=== PATIENT | female | born 1950 | race African-American/Black ===

== ENCOUNTER 2017-11-22 13:24 | Observation (INO) | payer MEDICARE, MEDICAID ==
[~2017-11-22 13:24] MED LIST: ISOVUE-370 76%-LOCM 1 ML ONE
--- NOTE | 2017-11-22 13:47 | RAD ---
PORTABLE CHEST ONE VIEW: Date: 11-22-17 Time: 1:43 p.m. History: Chest pain. FINDINGS: Comparison is made with exam of 08-16-16. The heart size is normal. The aorta is tortuous. The lungs are expanded without focal areas of consol idation, pneumothorax or pleural effusions. IMPRESSION: No radiographic evidence of acute cardiopulmonary process. POS: H
[2017-11-22 13:49] LABS: #Lymphocytes 1.1 thou/uL (1.20-3.40); #Monocytes 0.4 thou/uL (0.11-0.59); #Neutrophils 2.3 thou/uL (1.40-6.50); %Basophils 0.7 % (0.0-1.0); %Eosinophils 1.1 % (0.0-10.0); %Lymphocytes 28.8 % (21.0-51.0); %Monocytes 10.3 % (0.0-10.0); %Neutrophils 59.1 % (42.0-75.0); Hemoglobin 11.3 g/dL (12.0-16.0); Mean Corpuscular HGB CONC 32.8 g/dL (32.0-36.0); Mean Corpuscular Hemoglobin 26.2 pg (27.0-31.0); Mean Platelet Volume 8.7 fL (7.4-10.4); Platelet Count 181 thou/uL (130-400); RBC Distribution Width 12.6 % (11.5-14.5); Red Blood Cell (RBC) Count 4.32 mill/uL (4.20-5.40); White Blood Cell (WBC) Count 3.8 thou/uL (4.8-10.8)
[2017-11-22 14:13] LABS: CKMB 0.6 ng/mL (0-6.6); Troponin I Less than 0.010 ng/mL (< 0.028)
[2017-11-22 14:16] LABS: ALT (SGPT) 11 U/L (8-55); AST (SGOT) 16 U/L (5-34); Albumin 4.3 g/dL (3.4-4.8); Alkaline Phosphatase 69 U/L (40-150); Anion Gap 14 mmol/L (10-20); BUN (Urea Nitrogen) 16 mg/dL (9.8-20.1); Bilirubin, Total 0.2 mg/dL (0.2-1.2); CK (CPK) 47 U/L (29-168); Calc. Creatinine Clearance 0 mL/min (70-130); Calcium 9.7 mg/dL (7.8-10.44); Carbon Dioxide 26 mmol/L (23-31); Chloride 103 mmol/L (98-107); Estimated GFR-MDRD 73; Globulin 4.3 g/dL (2.4-3.5); Glucose 100 mg/dL (80-115); Potassium 3.7 mmol/L (3.5-5.1); Protein, Total 8.6 g/dL (6.0-8.3); Sodium 139 mmol/L (136-145)
[2017-11-22] MEDS ORDERED: Nitroglycerin 2% Ointment 1 INCH/1 GM Packet ONE (16:59)
--- NOTE | 2017-11-22 17:15 | CT ---
CTA OF THE THORAX UTILIZING IV CONTRAST PE PROTOCOL AND 3D REFORMATTED IMAGING 11/22/17 COMPARISON: Prior exam dated 07/25/13 and 05/24/16. FINDINGS: Pulmonary nodules in the right upper lobe are stable. There is a subpleural pulmonary nodule within the right lower lobe which is stable. There is some mild wall thickening involving portions of the mi d to distal esophagus with small hiatal hernia. No central or segmental pulmonary embolus is evident. Aberrant right subclavian artery is again noted. The visualized upper abdomen demonstrates cholecyst ectomy clips. There is scattered degenerative and osteoarthritic change. There are mildly prominent S chmorl's nodes involving T11 and T8 which are stable. There is diffuse osteopenia. IMPRESSION: 1. No central or segmental pulmonary embolus. 2. Stable benign pulmonary nodules within the right upper lobe and right lower lobe. There is al so small benign appearing pulmonary nodules right middle lobe. 3. Wall thickening involving the mid to distal esophagus may reflect changes of esophagitis. Rec ommend correlation. 4. Small hiatal hernia. 5. Cholecystectomy. 6. Other chronic findings as above. POS: [facility]
[2017-11-22 18:18] LABS: Troponin I 0.022 ng/mL (< 0.028)
[2017-11-22 18:35] VITALS: BMI 25.9
[2017-11-22] MEDS ORDERED: Ondansetron ODT 4 MG TAB SL PRN (18:43)
[2017-11-22] MEDS ORDERED: Ondansetron HCl/PF 4 MG/2 ML Vial IVP PRN (18:43)
[2017-11-22] MEDS ORDERED: Acetaminophen 325 MG TAB PO PRN (18:43)
[2017-11-22] MEDS ORDERED: Dextrose 50% Abboject 50 ML SYRINGE SLOW IVP PRN (20:14)
[2017-11-22] MEDS ORDERED: HumaLOG 300 UNITS/3 ML VIAL SC PRN (20:14)
[2017-11-22] MEDS ORDERED: Dextrose 5% in Water 1,000 ML IV PRN (20:14)
[2017-11-22] MEDS ORDERED: Nitroglycerin 0.4 MG TAB (25 Tab Bottle) PO PRN (20:30)
[2017-11-22 20:35] LABS: Phosphorus 2.7 mg/dL (2.3-4.7)
[2017-11-22 20:36] LABS: Hemoglobin A1c 5.5 % (4.0-6.0)
[2017-11-22 20:42] LABS: Troponin I Less than 0.010 ng/mL (< 0.028)
[2017-11-22] MEDS ORDERED: Brimonidine Tartrate 0.2% Ophth Soln 5 ml Bottle EA EYE SCH (21:00)
[2017-11-22] MEDS ORDERED: Doxycycline 100 MG CAP PO SCH (21:00)
[2017-11-22] MEDS ORDERED: PROVENTIL INHALER 6.7 G (200 INHALATIONS) INH PRN ×2 (21:00→22:00)
[2017-11-22] MEDS: Famotidine 20 MG TAB PO SCH (21:15)
[2017-11-22] MEDS: Nitroglycerin 2% Ointment 1 INCH/1 GM Packet TOP SCH (21:15)
[2017-11-22] MEDS ORDERED: HYDROcodone/Acetaminophen 5/325 mg Tablet PO PRN (21:50)
--- NOTE | 2017-11-23 03:32 | HP-2 ---
CODE STATUS: FULL. PRIMARY CARE PHYSICIAN: Dr. Bhavesh Meredith. ATTENDING: Dr. Lizette Newman. RESIDENT: Dr. Hector Chris. CHIEF COMPLAINT: Chest pain. HISTORY OF PRESENT ILLNESS: A 67-year-old female who presents with chest pain that began around 10:0 0 a.m. after being on a treadmill. She states she did have some shortness of breath that was worse w ith deep breathing. She denies diaphoresis, nausea, vomiting, diarrhea at that time. She denies any recent illness. She describes the pain as sharp in the right side of her chest with no radiation. She states the pain is constant. She also states that this has happened before to her. The patient states that she used to be able to walk faster and farther on a treadmill, but now has had increased exercise intolerance. She also notes that the pain is worse with large deep breaths. Patient states that she was scheduled for a heart catheterization on 12/12/[address] Carbajal. She has no othe r complaints at this time. In the ER, she was given Nitro-Bid and aspirin. PAST MEDICAL HISTORY: Chronic atrial fibrillation, microcytic anemia, hypothyroidism, hypertension, GERD, COPD, left eye blindness secondary to glaucoma, hepatitis C, rheumatoid arthritis, diabetes roseanna litus type 2. PAST SURGICAL HISTORY: Cholecystectomy, enucleation of left eye, cataract of the right eye. ALLERGIES: PENICILLIN, LEVAQUIN, AZITHROMYCIN, SULFA, HYDRALAZINE, THIAZIDES. MEDICATIONS: 1. Symbicort 160/4.5 mcg inhalers. 2. Metoprolol succinate 50 mg. 3. Norvasc 10 mg. 4. Aldactone 25 mg. 5. Synthroid 25 mcg. 6. Nexium 40 mg. 7. Albuterol sulfate nebulizers. 8. Flonase 50 mcg. 9. Alphagan 0.1% ophthalmic solution. 10. Nasonex 50 mcg. 11. ProAir HFA 108 mcg. 12. Xopenex HFA 45 mcg. 13. Hydrocodone/acetaminophen 5/325 mg. 14. Metformin 500 mg b.i.d. 15. Xarelto 20 mg. 16. Calcium plus D 1000-800 mg units. 17. Naprosyn 500 mg b.i.d. FAMILY HISTORY: Diabetes mellitus type 2 and hypertension. SOCIAL HISTORY: Patient states she had a significant smoking history, alcohol history, and polysubst ance abuse history, but she had quit over 20 years ago. REVIEW OF SYSTEMS: General: Denies any fevers, chills, weight changes. Eyes: Denies any vision ch anges or eye pain. ENT: Denies nasal congestion, rhinorrhea, or sore throat. Respiratory: Denies cough, congestion, shortness of breath. Cardiovascular: She does admit to chest pain. Denies any p alpitations or edema. Gastrointestinal: She denies any nausea, vomiting, diarrhea. Genitourinary: She does admit to polyuria. Skin: She denies any rashes or lesions. Musculoskeletal: Denies pain , tenderness, stiffness, swelling, arthritis at any joints. Neurologic: Denies any weakness. She d oes say she has had some numbness. Psychiatric: She denies anxiety or depression. PHYSICAL EXAMINATION: VITAL SIGNS: BP was 129/84, pulse is 83, respiratory rate are 18, temperature max 98.9, pulse ox 98% on room air, current weight is 75 kilos. GENERAL: She is alert and oriented x4. Appropriately interactive. EYES: PERRLA with left fake eye. ENT: Nasal mucosa and oropharynx within normal limits. NECK: Supple, no lymphadenopathy, no thyromegaly. CARDIAC: Irregular rate and rhythm. No murmurs. Radial and pedal pulses equal bilaterally. RESPIRATORY: Normal effort, no retractions, clear lungs to auscultation bilaterally. SKIN: Warm and dry. No cyanosis or lesions. ABDOMEN: Soft, not tender to palpation. Bowel sounds present x4. No masses or distention. EXTREMITIES: No clubbing, cyanosis, or edema. MUSCULOSKELETAL: Structure, tone, muscle strength, and range of motion within normal limits. NEUROLOGIC: No focal neurologic deficits. Sensation within normal limits. Cranial nerves II-XII gr ossly intact. GCS was 15. PSYCH: Appropriate. LABORATORY DATA: We have a white blood cell count 3.8, platelet count 181, MCV was 80%, neutrophils 59, hemoglobin 11.3, hematocrit 34.5. Sodium 139, potassium 3.7, chloride 103, bicarbonate 26, BUN 1 6, creatinine 0.93, glucose was 100. CK was 47, CK-MB 0.6, troponin I was less than 0.01. Calcium 9 .7, total protein 8.6, albumin 4.3, bilirubin 0.2, AST 16, ALT 11, alkaline phosphatase 69. EKG show ed atrial fibrillation unchanged from previous. CT of the chest was negative. Chest x-ray showed no acute abnormality. ASSESSMENT AND PLAN: A 67-year-old female with: 1. Typical chest pain. We will make her n.p.o. at midnight. We will get a Cardiology consult in th e morning with Dr. Carbajal, who was her primary blood or blood bank technician. We will trend her troponins. We will give her nitro as needed. EKG changes. Her heart score was 5. We also have fasting lipid panel, m ag, phos, and a BMP pending. 2. Atrial fibrillation. Continue her home medications. 3. Hypertension. Continue her home meds. 4. Chronic obstructive pulmonary disease. Continue her home meds. 5. Diabetes mellitus. Given Accu-Cheks and sliding scale insulin and discuss continue her metformin . 6. Hypothyroidism. We will check a TSH, since it has not been recently checked. Also, continue her Synthroid dose. 7. Microcytic anemia. We will recommend an outpatient followup. We are going to trend the CBC. 8. Rheumatoid arthritis. Continue home medications. Disposition length of hospital stay will be tele and 1. Symptomatic medications will be provided. History and physical exam as well as management has been discussed with Dr. Newman.
[2017-11-23 05:26] LABS: INR-International Normal Ratio 1.3; Prothrombin Time 16.3 SEC (12.0-14.7)
[2017-11-23 05:35] LABS: Anion Gap 12 mmol/L (10-20); BUN (Urea Nitrogen) 22 mg/dL (9.8-20.1); Calc. Creatinine Clearance 88 mL/min (70-130); Calcium 9.3 mg/dL (7.8-10.44); Carbon Dioxide 27 mmol/L (23-31); Cardiac Risk 2.3 (Less than 4.5); Chloride 108 mmol/L (98-107); Cholesterol 114 mg/dl (< 200 Desired); Estimated GFR-MDRD Greater than 90; Glucose 92 mg/dL (80-115); HDL Cholesterol 49 mg/dL (>60 Neg Risk); LDL Cholesterol, Calculated 49 mg/dL; Potassium 3.5 mmol/L (3.5-5.1); Sodium 143 mmol/L (136-145); Triglycerides 78 mg/dL (Less than 150)
[2017-11-23] MEDS ORDERED: Levothyroxine Sodium 25 MCG TAB PO SCH (06:00)
[2017-11-23] MEDS: Nitroglycerin 2% Ointment 1 INCH/1 GM Packet TOP SCH (06:23)
[2017-11-23] MEDS ORDERED: Mometasone/Formoterol 120 PUFF INHALER INH SCH (06:30)
[2017-11-23 06:47] LABS: Eosinophils 2 % (0-10); Hemoglobin 9.8 g/dL (12.0-16.0); Lymphocytes 44 % (21-51); MDiff Complete? YES; Mean Corpuscular HGB CONC 30.8 g/dL (32.0-36.0); Mean Corpuscular Hemoglobin 24.9 pg (27.0-31.0); Mean Corpuscular Volume 80.9 fl (81.0-99.0); Monocytes 6 % (0-10); Neutrophil 48 % (42-75); PLT Morphology Comment Appears Adequate; Platelet Count 167 thou/uL (130-400); RBC Distribution Width 12.6 % (11.5-14.5); RBC Morphology Normal; Red Blood Cell (RBC) Count 3.94 mill/uL (4.20-5.40); White Blood Cell (WBC) Count 2.9 thou/uL (4.8-10.8)
[2017-11-23] MEDS ORDERED: Spironolactone 25 MG TAB PO SCH (08:00)
[2017-11-23] MEDS ORDERED: Potassium Chloride 10 MEQ TAB PO SCH (08:00)
[2017-11-23] MEDS ORDERED: predniSONE 20 MG TAB PO SCH (08:00)
--- NOTE | 2017-11-23 08:33 | PDOC.FM ---
- Subjective Subjective: Patient reports that her chest pain has resolved since getting to the hospital. She is no longer having SOB. She denies N/V/D/abd pain. - Objective MAR Reviewed: Yes Vital Signs & Weight: Vital Signs (12 hours) Temp Pulse Resp BP BP Pulse Ox 11/23/17 07:38 98.6 F 73 16 131/76 97 11/23/17 06:32 70 12 11/23/17 04:20 98.9 F 73 20 108/69 95 11/22/17 23:56 98.3 F 77 14 109/69 99 Weight Weight 75.296 kg I&O: 11/22/17 11/23/17 11/24/17 06:59 06:59 06:59 Intake Total 120 Output Total 150 Balance -30 Result Diagrams: 11/23/17 04:31 11/23/17 04:31 <Aditi Sauer - Last Filed: 11/23/17 08:31> - Objective Vital Signs & Weight: Vital Signs (12 hours) Temp Pulse Resp BP BP Pulse Ox 11/23/17 08:00 98.6 F 73 16 11/23/17 07:38 98.6 F 73 16 131/76 97 11/23/17 06:32 70 12 11/23/17 04:20 98.9 F 73 20 108/69 95 11/22/17 23:56 98.3 F 77 14 109/69 99 Weight Weight 75.296 kg I&O: 11/22/17 11/23/17 11/24/17 06:59 06:59 06:59 Intake Total 120 Output Total 150 Balance -30 Result Diagrams: 11/23/17 04:31 11/23/17 04:31 <Julio Garcia - Last Filed: 11/23/17 11:06> Phys Exam - Physical Examination Constitutional: NAD HEENT: moist MMs Respiratory: no wheezing, no rales, no rhonchi, clear to auscultation bilateral Cardiovascular: RRR, no significant murmur, no rub Gastrointestinal: soft, non-tender, no distention, positive bowel sounds Musculoskeletal: no edema, pulses present Neurological: non-focal, moves all 4 limbs Psychiatric: normal affect, A&O x 3 <Aditi Sauer - Last Filed: 11/23/17 08:31> Dx/Plan (1) Exercise-induced angina Code(s): I20.8 - OTHER FORMS OF ANGINA PECTORIS Status: Acute (2) Microcytic anemia Code(s): D50.9 - IRON DEFICIENCY ANEMIA, UNSPECIFIED Status: Acute (3) Chronic a-fib Code(s): I48.2 - CHRONIC ATRIAL FIBRILLATION Status: Chronic (4) GERD (gastroesophageal reflux disease) Code(s): K21.9 - GASTRO-ESOPHAGEAL REFLUX DISEASE WITHOUT ESOPHAGITIS Status: Chronic QualifierTitle: Esophagitis presence: with esophagitis Qualified Code(s) : K21.0 - Gastro-esophageal reflux disease with esophagitis (5) HTN (hypertension) Code(s): I10 - ESSENTIAL (PRIMARY) HYPERTENSION Status: Chronic QualifierTitle: Hypertension type: essential hypertension Qualified Code( s): I10 - Essential (primary) hypertension (6) Hypothyroidism Code(s): E03.9 - HYPOTHYROIDISM, UNSPECIFIED Status: Chronic QualifierTitle: Hypothyroidism type: unspecified Qualified Code(s): E03.9 - Hypothyroidism, unspecified (7) Diabetes type 2, controlled Code(s): E11.9 - TYPE 2 DIABETES MELLITUS WITHOUT COMPLICATIONS Status: Acute QualifierTitle: Diabetes mellitus complication status: without complication Diabetes mellitus mcc insulin use: without supervisor shearing use Qualified Code(s): E11.9 - Type 2 diabetes mellitus without complications - Plan Plan: 1. Angina on Exertion Patient was walking on treadmill and started having chest pain with associated SOB. She had recent stress test about a month ago that was normal per the patient, and she was set up to have a cath by Dr. Carbajal on 12/12/17 due to her decreased exercise tolerance. ASCVD 10 yr risk 9.8% Trops negative x3, no EKG changes -Will consult Dr. Carbajal, appreciate his recommendations -Patient is asymptomatic at this time, but will give nitro prn chest pain -Will hold Xarelto pending plan for today and make patient NPO 2. Chronic a-fib -Monitor on tele -Hold Xarelto for today -Hold Metoprolol for today, will restart tomorrow, currently rate controlled 3. Hypothyroidism TSH wnl -cont home synthroid 4. GERD Pt had evidence of esophagitis on CT -protonix 5. HTN -continue home meds, except holding metoprolol for today 6. DM2 -Metformin -Accuchecks ACHS <Aditi Sauer - Last Filed: 11/23/17 08:31> Attending Addendum - Attending Addendum I personally evaluated the patient and discussed the management with Dr. Sauer. I agree with the History, Examination, Assessment and Plan documented above with any addition or exceptions noted below. Patient admitted yesterday with typical type chest pain that began on exertion. She has been followed by [facility] and he has been consulted. Possible stress or cath today depending on his recs. She is currently without pain or complaint. Further dispo per cardiology recs. <Julio Garcia - Last Filed: 11/23/17 11:06>
[2017-11-23] MEDS ORDERED: Rivaroxaban 10 MG TAB PO SCH (09:00)
[2017-11-23] MEDS ORDERED: Brimonidine Tartrate 0.2% Ophth Soln 5 ml Bottle R EYE SCH (09:00)
[2017-11-23] MEDS ORDERED: Hydroxychloroquine Sulfate 200 MG TAB PO SCH (09:00)
[2017-11-23] MEDS ORDERED: Fluticasone Propionate Nasal Spray 16 gm Bottle NASAL SCH (09:00)
[2017-11-23] MEDS ORDERED: Amlodipine 10 MG TAB PO SCH ×2 (09:00)
[2017-11-23] MEDS ORDERED: metFORMIN 500 MG TAB PO SCH (09:00)
[2017-11-23] MEDS: Famotidine 20 MG TAB PO SCH (09:25)
[2017-11-23 11:53] VITALS: BP 141/85; TEMP 98.8
--- NOTE | 2017-11-23 13:19 | CON ---
DATE OF CONSULTATION: 11/23/2017 HISTORY OF PRESENT ILLNESS: Patient is a pleasant 67-year-old woman with a history of chest discomfort who presents with recurrent chest pain. The patient has a history of chest discomfort. She recently underwent a PET scan which revealed no evidence of ischemia. The patient continued to report having substernal chest discomfort. The patient was scheduled to undergo a cardiac catheterization yesterday. She developed right-sided chest discomfort. This was a persistent pain that was made worse whenever she took a deep breath. The patient denies having any present chest discomfort. PAST MEDICAL HISTORY: 1. Hypertension. 2. Rheumatoid arthritis. 3. GE reflux. 4. Hypothyroidism. 5. Paroxysmal atrial fibrillation. PAST SURGICAL HISTORY: Cholecystectomy, knee surgery, eye surgery,and C- section. ALLERGIES: See nursing list. MEDICATIONS ON ADMISSION: Xarelto 20 daily, Metformin 1 tablet b.i.d., Plaquenil 200 b.i.d., Norvasc 10 daily,and Nexium 40 daily. PHYSICAL EXAMINATION: GENERAL: This is a thin woman in no acute distress. VITAL SIGNS: Blood pressure 131/76. NECK: No jugular venous distention, no carotid bruits. LUNGS: Clear to auscultation. HEART: Irregular rate and rhythm, normal S1 and S2. ABDOMEN: Nondistended LABORATORY DATA AND IMAGING DATA: Her laboratory results revealed her to have sodium 143, potassium 3.5, chloride 108, bicarbonate 27, BUN 22, creatinine 0.76 , glucose is 124, troponin less than 0.01. Her EKG revealed normal sinus rhythm with premature atrial contractions, no ST-T wave changes. IMPRESSION: 1. Atypical right-sided chest pain. 2. Hypertension. 3. History of paroxysmal atrial fibrillation. 4. History of chronic obstructive pulmonary disease. This patient presents with atypical chest pain. Her cardiac enzymes reveal no evidence of myocardial infarction. Her electrocardiogram is unremarkable. The patient is on Xarelto, so she will not be able to undergo cardiac catheterization. She needs to be off this medication for at least 2 days. From a cardiac standpoint, she can wait until over the weekend. I will be happy to perform the catheterization on Sunday. If she declines, then we will undergo outpatient catheterization. If she chooses to leave the hospital, then I would be happy to perform the scheduled outpatient procedure. DEUCE
[2017-11-23] MEDS ORDERED: Diabetic Tussin 200 MG/10 ML UDCUP PO PRN (13:53)
[2017-11-23] MEDS ORDERED: Warfarin Sodium 2 MG TAB PO SCH (17:00)
--- NOTE | 2017-11-23 23:30 | DIS-2 ---
ADMISSION DATE: 11/22/2017 DISCHARGE DATE: 11/23/2017 ADMITTING RESIDENT: Hector Chris M.D. DISCHARGE RESIDENT: Dr. Aditi Sauer. ADMITTING ATTENDING: Lizette Newman M.D. DISCHARGE ATTENDING: Dr. Julio Garcia. CONSULTATIONS: Dr. Carbajal of Cardiology. PROCEDURES: None. IMAGIN. Chest x-ray showed no radiographic evidence of acute cardiopulmonary process. 2. Chest thorax CTA showed no central or segmental pulmonary embolus, stable benign pulmonary nodule s within the right upper lobe and right lower lobe and small benign appearing pulmonary nodules in ri ght middle lobe, wall thickening involving the mid to distal esophagus may reflect changes of esophag itis, small hiatal hernia, cholecystectomy. PRIMARY DIAGNOSES: 1. Anginal chest pain. 2. Esophagitis. SECONDARY DIAGNOSES: 1. Chronic atrial fibrillation. 2. Microcytic anemia. 3. Gastroesophageal reflux disease. 4. Hypertension. 5. Hyperthyroidism. 6. Type 2 diabetes. DISCHARGE MEDICATIONS: 1. Albuterol sulfate 90 mcg inhaled p.r.n. shortness of breath or wheezing. 2. Amlodipine 10 mg p.o. daily. 3. Brimonidine tartrate one drop in the right eye b.i.d. 4. Budesonide/formoterol 1 puff inhaled b.i.d. 5. Esomeprazole 40 mg p.o. daily. 6. Flonase 1 spray in each naris daily. 7. [place] 5/325 mg 1 tab p.o. q.6 hours p.r.n. pain. 8. Plaquenil 200 mg p.o. b.i.d. 9. Xopenex 1 puff inhaled q.4 hours p.r.n. shortness of breath or wheezing. 10. Synthroid 25 mcg p.o. daily. 11. Metformin 500 mg p.o. b.i.d. 12. Metoprolol 25 mg p.o. b.i.d. 13. Potassium chloride 10 mEq p.o. daily. 14. Xarelto 20 mg p.o. daily. 15. Spironolactone 25 mg p.o. daily. DISCONTINUED MEDICATIONS: None. HISTORY OF PRESENT ILLNESS/HOSPITAL COURSE: This is a 67-year-old female with a past medical history of GERD and type 2 diabetes, who presented to the ED after an episode of chest pain that started aft er walking on the treadmill associated with shortness of breath. Pain was right-sided, did not radia te, was worse when she took deep breath. The pain was relieved with rest. The patient had a recent stress test that was negative and is scheduled to have a cardiac catheterization due to exercise into [facility] with Dr. Carbajal on 12/12/2017. The patient received aspirin and is also on nitro. By the time, the patient was admitted, she was no longer having any chest pain, shortness of breath, and the patient had an EKG done that showed no signs of ischemia as well as troponins that were trended that were negative x3. The patient's 10-year ASCVD risk was calculated, it was 9.8%. The patient is on Xarelto and had a PT of 16.3 with INR of 1.3. Dr. Carbajal of Cardiology was consulted and he deemed this was atypical chest pain. He felt that the patient could either wait in the hospital until Mond ay to have a catheterization done for the Xarelto get out of her system or to wait until her schedule d time to have the catheterization done later in November and that either would be appropriate based on her symptoms and laboratory work. The patient felt comfortable going home and was instructed to kian nelson taking her medications and follow up with Dr. Carbajal as planned. DISPOSITION: Stable. DISCHARGE INSTRUCTIONS: 1. Location: Home. 2. Diet: Heart healthy and consistent carb. 3. Activity: As tolerated. 4. Follow up with Dr. Meredith within [address] Carbajal within 2-3 weeks.
== END 2017-11-23 14:54 | disposition home or self-care (01) ==
LOC: ERS 13:24 → 2SW 17:07
PROVIDERS: ADMIT Student in an Organized Health Care Education/Training Program; ATTEND Student in an Organized Health Care Education/Training Program
DX: I20.9 Angina pectoris, unspecified (principal); K20.9 Esophagitis, unspecified; I48.2 Chronic atrial fibrillation; K21.9 Gastro-esophageal reflux disease without esophagitis; I10 Essential (primary) hypertension; E03.9 Hypothyroidism, unspecified; E11.9 Type 2 diabetes mellitus without complications; M06.9 Rheumatoid arthritis, unspecified; J44.9 Chronic obstructive pulmonary disease, unspecified; Z88.0 Allergy status to penicillin; Z88.1 Allergy status to other antibiotic agents; Z88.8 Allergy status to other drugs, medicaments and biological substances; Z90.49 Acquired absence of other specified parts of digestive tract; Z90.710 Acquired absence of both cervix and uterus; Z98.890 Other specified postprocedural states
CPT/HCPCS: 71045; 71275; 80048; 80061; 82550; 82553; 82962 ×2; 83036; 83735; 84100; 84484 ×2; 85025; 85610; 93005; 94640; 94664; 94760; 99285; G0378; 36415; 36416; 80053; 84443

== ENCOUNTER 2018-01-15 16:48 | Emergency (ER) | payer MEDICARE, MEDICAID ==
[~2018-01-15 16:48] MED LIST changes: +Gadobenate Dimeglumine 529 MG/1 ML (20ML VIAL) ONE; -ISOVUE-370 76%-LOCM 1 ML ONE
[2018-01-15] MEDS ORDERED: HYDROcodone/Acetaminophen 7.5/325 mg Tablet ONE (17:55)
--- NOTE | 2018-01-15 18:09 | RAD ---
THREE VIEWS OF THE LEFT WRIST: 01/15/18 COMPARISON: 02/13/15 HISTORY: Left wrist pain and swelling after waking up this morning. FINDINGS: Three views of the left wrist shows no evidence of acute fracture or dislocation. There is mild joint space narrowing of the radiocarpal joint. No focal soft tissue swelling is seen. IMPRESSION: Mild left wrist osteoarthritis without acute osseous abnormality. POS: [facility]
[2018-01-15 18:31] LABS: Hemoglobin 11.3 g/dL (12.0-16.0); Mean Corpuscular HGB CONC 31.9 g/dL (32.0-36.0); Mean Corpuscular Hemoglobin 25.4 pg (27.0-31.0); Mean Corpuscular Volume 79.8 fl (81.0-99.0); Mean Platelet Volume 9.6 fL (7.4-10.4); Platelet Count 203 thou/uL (130-400); RBC Distribution Width 13.2 % (11.5-14.5); Red Blood Cell (RBC) Count 4.44 mill/uL (4.20-5.40)
[2018-01-15 18:41] LABS: Band 1 % (5-11); Elliptocytes SLIGHT = 2-5 cells (100X) (0-1/hpf); Eosinophils 2 % (0-10); Hypochromia SLIGHT = 6-15 cells (100X) (0-5/hpf); Lymphocytes 28 % (21-51); MDiff Complete? YES; Microcytosis SLIGHT = 6-15 cells (100X) (0-5/hpf); Monocytes 10 % (0-10); Neutrophil 58 % (42-75); Ovalocytes SLIGHT = 2-5 cells (100X) (0-1/hpf); PLT Morphology Comment Appears Adequate; Polychromasia SLIGHT = 2-3 cells (100X) (0-2/hpf); Reactive Lymphocytes 1 % (0-10); Schistocytes SLIGHT = 2-5 cells (100X) (0-1/hpf); White Blood Cell (WBC) Count 3.1 thou/uL (4.8-10.8)
[2018-01-15 18:45] LABS: ALT (SGPT) 13 U/L (8-55); AST (SGOT) 22 U/L (5-34); Albumin 4.4 g/dL (3.4-4.8); Alkaline Phosphatase 70 U/L (40-150); Anion Gap 14 mmol/L (10-20); BUN (Urea Nitrogen) 12 mg/dL (9.8-20.1); Bilirubin, Total 0.2 mg/dL (0.2-1.2); Calc. Creatinine Clearance 0 mL/min (70-130); Calcium 9.7 mg/dL (7.8-10.44); Carbon Dioxide 24 mmol/L (23-31); Chloride 105 mmol/L (98-107); Estimated GFR-MDRD 87; Globulin 4.4 g/dL (2.4-3.5); Glucose 122 mg/dL (80-115); Potassium 3.8 mmol/L (3.5-5.1); Protein, Total 8.8 g/dL (6.0-8.3); Sodium 139 mmol/L (136-145)
[2018-01-15] MEDS ORDERED: cefTRIAXone\\ROCEPHIN 250 MG VIAL ONE (20:37)
[2018-01-15] MEDS ORDERED: Lidocaine 1% PF 5 ML VIAL ONE (20:39)
--- NOTE | 2018-01-15 20:47 | MRI ---
MRI OF THE LEFT WRIST WITHOUT AND WITH CONTRAST; 01/15/18 HISTORY: Left wrist pain. Evaluate for septic joint. COMPARISON: X-ray 01/15/18. TECHNIQUE: Multiplanar and multisequence MRI images were obtained of the left wrist without and with IV contrast . FINDINGS: There is edema along the dorsal aspect of the wrist. This is slightly more pronounced over the ECRL a nd ECRB tendons. No fraying of the tendons is seen where the edema is present and no significant thic kening of the tendons is present. No wrist effusion is seen. There is a small cyst present in the lunate. The TFCC is grossly intact. T here is enhancement of the soft tissues in the dorsal wrist where the edema is present consistent wit h cellulitis. No focal fluid collection is seen. No significant enhancement of the wrist capsule is s een. IMPRESSION: Cellulitis and possible tenosynovitis of the extensor tendons along the dorsal aspect of the wrist. This exam was reviewed with Dr. Nazario who agrees with the findings and impression. POS: [facility]
[2018-01-15] MEDS ORDERED: Ketorolac Tromethamine 30 MG/ML VIAL ONE (21:21)
== END 2018-01-15 22:01 | disposition home or self-care (01) ==
LOC: ERS 16:48
DX: L03.114 Cellulitis of left upper limb (principal); I48.91 Unspecified atrial fibrillation; I49.9 Cardiac arrhythmia, unspecified; I10 Essential (primary) hypertension; M19.90 Unspecified osteoarthritis, unspecified site; J44.9 Chronic obstructive pulmonary disease, unspecified; B19.20 Unspecified viral hepatitis C without hepatic coma; M10.9 Gout, unspecified; M06.9 Rheumatoid arthritis, unspecified
CPT/HCPCS: 36415; 80053; 85025; 85652; 86140; 96374; 96375; A9579; J0696; J1885; J2001

== ENCOUNTER 2018-01-17 22:16 | Inpatient (IN) | payer MEDICARE, MEDICAID ==
[2018-01-17] MEDS ORDERED: Acetaminophen 325 MG TAB PO PRN (22:40)
[2018-01-17] MEDS ORDERED: Bisacodyl 10 MG SUPP PR PRN (23:18)
[2018-01-17] MEDS ORDERED: Acetaminophen 650 MG Suppository PR PRN (23:18)
[2018-01-17] MEDS ORDERED: Mag-Al 1200 mg/1200 mg/30 ML UDCUP PO PRN (23:18)
[2018-01-17] MEDS ORDERED: Ondansetron HCl/PF 4 MG/2 ML Vial IVP PRN (23:18)
[2018-01-17] MEDS ORDERED: Morphine 5 MG/ML SYRINGE SLOW IVP PRN ×2 (23:21)
[2018-01-17] MEDS ORDERED: Ketorolac Tromethamine 30 MG/ML VIAL IVP SCH (23:30)
--- NOTE | 2018-01-17 23:35 | PDOC.FPRHP ---
- History of Present Illness Chief Complaint: wrist pain History of Present Illness: Tonya Cadena is a 68 year old F with PMH of HTN, DM, osteoarthritis, chronic low back pain, who was sent over to hospital for direct admission from the [facility] clinic. The patient has had left wrist pain for the last 3 days. Pain is worse with any movement or weight bearing. There has been no trauma to wrist and no lesions. Patient denies any fevers, chills, n/v, numbness or tingling. Patient was seen in ER for the same symptoms on 01/15 and had an MRI done that showed possible tenosynovitis of ECRB and ECRL with overlying cellulitis. Patient was sent home from the ER with PO clindamycin. It was recommended that patient follow up with orthopedics but did not make it to appointment. She did make an appointment at [facility] where it was decided that she should be directly admitted to the hospital. - Allergies/Adverse Reactions Allergies Allergy/AdvReac Type Severity Reaction Status Date / Time azithromycin [From Zithromax] Allergy Verified 11/22/17 19:42 erythromycin base Allergy Verified 11/22/17 19:42 hydralazine Allergy Verified 11/22/17 19:42 hydrochlorothiazide Allergy Verified 11/22/17 19:42 levofloxacin [From Levaquin] Allergy Verified 11/22/17 19:42 Penicillins Allergy Verified 11/22/17 19:42 Quinolones Allergy Verified 11/22/17 19:42 Sulfa (Sulfonamide Allergy Verified 11/22/17 19:42 Antibiotics) Thiazides Allergy Verified 11/22/17 19:42 ibuprofen AdvReac Mild Verified 11/22/17 19:42 - Home Medications Medication Instructions Recorded Confirmed Type Budesonide-Formoterol [Symbicort 1 puff INH BID 03/27/16 01/17/18 History 160-4.5] Esomeprazole Magnesium [Nexium 40 mg PO DAILY 03/27/16 01/17/18 History 24Hr] Levalbuterol Tartrate [Xopenex HFA 1 puff INH Q4HR PRN 03/27/16 01/17/18 History Inhaler] Levothyroxine Sodium [Synthroid] 25 mcg PO DAILY 03/27/16 01/17/18 History Metoprolol Succinate [Toprol XL] 25 mg PO BID 03/27/16 01/17/18 History Spironolactone [Aldactone] 25 mg PO DAILY 03/27/16 01/17/18 History Albuterol Sulfate [Proair 90 mcg IH PRN PRN 11/22/17 01/17/18 History Respiclick] Amlodipine [Norvasc] 10 mg PO DAILY 11/22/17 01/17/18 History Brimonidine Tartrate [Alphagan P 1 drop R EYE BID 11/22/17 01/17/18 History 0.1% Ophth Soln] Fluticasone Propionate [Flonase 1 spray EA NARE DAILY 11/22/17 01/17/18 History Nasal [place]] Rivaroxaban [Xarelto] 20 mg PO DAILY 11/22/17 01/17/18 History metFORMIN [Glucophage] 1 tab PO BID 11/22/17 01/17/18 History Rivaroxaban [Xarelto] 20 mg PO DAILY 01/17/18 01/17/18 History - History PMHx: Hypothyroidism, Microcytic anemia, chronic venous insufficiency, atrial fibrillation, hep C, T2DM, HTN, COPD, glaucoma, peripheral neuropathy, chronic low back pain PSHx: knee surgery, eye surgery X2, DAWIT-BSO, cholecystectomy, internal hemorrhoid resection FHx: DM, HTN Social: Single, lives alone, denies drug use - Review of Systems General: denies: fever/chills, weight/appetite/sleep changes, night sweats Eyes: denies: eye pain, vision changes ENT: denies: nasal congestion, rhinorrhea Respiratory: denies: cough, congestion, shortness of breath, exercise intolerance Cardiovascular: denies: chest pain, palpitation, edema, paroxysmal nocturnal dyspnea, orthopnea Gastrointestinal: denies: nausea, vomiting, diarrhea, constipation, abdominal pain, GI bleeding Genitourinary: denies: incontinence, dysuria, polyuria, discharge Skin: denies: rashes, lesions, jaundice Musculoskeletal: reports: pain, tenderness, stiffness, swelling, arthritis/ arthralgias Neurological: denies: numbness, syncope, seizure, weakness Psychological: denies: anxiety, depression - Vital signs BP: 120/78 HR: 75 RR: 16 Pox: 98% on RA Wt: 75 kg - Physical Exam Constitutional: NAD, awake, alert and oriented, well developed HEENT: normocephalic and atraumatic, PERRLA, EOMI, conjunctiva clear, grossly normal vision, grossly normal hearing, MMM, oropharynx clear Neck: supple, trachea midline, no JVD Heart: RRR, normal S1/S2, no murmurs/rubs/gallops Lungs: CTAB, no respiratory distress, good air movement, no rales/rhonchi Abdomen: soft, non-tender -Musculoskeletal: erythema and swelling over posterior aspect of left wrist with TTP. Decrease ROM 2/2 to pain. Increased pain with extension and flexion of wrist and fingers. Neurological: no focal deficit, CN II-XII intact, normal sensation Skin: no rash/lesions, good turgor Heme/Lymphatic: no unusual bruising or bleeding, no purpura Psychiatric: normal mood and affect, good judgment and insight, intact recent and remote memory FMR H&P: Results - Labs Result Diagrams: 01/17/18 23:51 01/17/18 23:51 FMR H&P: A/P - Problem List (1) Infectious tenosynovitis of left wrist extensor Current Visit: Yes Status: Acute Code(s): M65.132 - OTHER INFECTIVE (TENO) SYNOVITIS, LEFT WRIST (2) Diabetes type 2, controlled Current Visit: No Status: Chronic Code(s): E11.9 - TYPE 2 DIABETES MELLITUS WITHOUT COMPLICATIONS Qualifiers: Diabetes mellitus mcc insulin use: without mcc use Diabetes mellitus complication status: without complication Qualified Code(s): E11.9 - Type 2 diabetes mellitus without complications (3) Microcytic anemia Current Visit: No Status: Chronic Code(s): D50.9 - IRON DEFICIENCY ANEMIA, UNSPECIFIED (4) Chronic a-fib Current Visit: No Status: Chronic Code(s): I48.2 - CHRONIC ATRIAL FIBRILLATION (5) Glaucoma Current Visit: No Status: Chronic Code(s): H40.9 - UNSPECIFIED GLAUCOMA Qualifiers: Glaucoma type: unspecified type Laterality: left (6) HTN (hypertension) Current Visit: No Status: Chronic Code(s): I10 - ESSENTIAL (PRIMARY) HYPERTENSION Qualifiers: Hypertension type: essential hypertension Qualified Code(s): I10 - Essential (primary) hypertension (7) Hypothyroidism Current Visit: No Status: Chronic Code(s): E03.9 - HYPOTHYROIDISM, UNSPECIFIED Qualifiers: Hypothyroidism type: unspecified Qualified Code(s): E03.9 - Hypothyroidism , unspecified (8) COPD (chronic obstructive pulmonary disease) Current Visit: No Status: Chronic - Plan (1) Infectious Tenosynovitis of Left wrist: admit to medical. Patient is at increased risk for synovitis due to diabetes but etiology is unclear at this time. Will start IV vancomycin and rocephin. Ice pack for wrist. Will consult Dr. Goode in the morning. Continue pain management. NPO @ midnight. Check blood cultures, CBC, CMP, CRP. (2) HTN: Home meds (3) A fib: Continue home meds, hold xarelto. Check PT, PTT, INR. (4) T2DM: Continue metformin. (5) COPD: Continue home meds (6) hypothyroidism: continue home meds (7) glaucoma: home meds (8) chronic low back pain: home meds CODE STATUS: FULL CODE FMR H&P: Upper Level - Pertinent history 68yo AAF with pmhx DM2, HTN, peripheral neuropathy who presented from clinic at [facility] after being seen for left wrist pain and sent for direct admission. Pt has 3 day h/o left wrist pain, worse with any movement or weight bearing. Denies any numbness/tingling, fevers, chills, nausea or vomiting or lymphadenopathy. Seen in ED with same concern on 01/15 and MRI LUE showed possible tenosynovitis of ECRB & ECRL with overlying cellulitis. Pt sent home on po clindamycin and recommended f/u with ortho as outpt. Pt did not make it to ortho appt but instead was admitted to hospital from clinic for worsened wrist pain and concern for true synovitis. Pt denies any recent wound or punctures to skin on LUE. - Pertinent findings Pending Labs (drawn on admission) prior imaging reviewed as above Pertinent physical exam findings- VSS, afebrile gen- NAD, well appearing, nontoxic cv- rrr no mrg lungs- ctab abd- soft non-tender RUE- erythema and edema to dorsal/radial aspect of left wrist with ttp. worsened pain with extension of fingers and thumb and any passive ROM. unable to perform active ROM due to pain. - Plan Date/Time: 01/17/18 2314 68yo AAF with pmhx as above p/w- 1) Left wrist extensor tenosynovitis, presumed infectious etiology- no clear nidus for infection based on history; however concern for infectious etiology and failure of outpt abx. start pt on vancomycin and check appropriate troughs. check BCx, CBC, CRP & BMP & ESR upon arrival. Consult hand surgeon, Dr. Goode , in am for recommendations. npo @ mn and hold anticoags at this time. ice to affected area q 30 min. 2) HTN- home rx 3) DM2- home rx 4) chronic iron deficiency anemia- check hgb to assure stable 5) pAfib- in NSR currently.hold xarelto pending surgery recs. I, [Aditi Harrell DO ([email or web address])], have evaluated this patient and agree with findings/plan as outlined by post graduate intern resident. Pertinent changes/additions are listed here. Attending Addendum - Attending Addendum Date/Time: 01/18/18 7618 I personally evaluated the patient and discussed the management with Dr. Tilley on 01/17/18 at 2342. I agree with the History, Examination, Assessment and Plan documented above with any addition or exceptions noted below. Left wrist tenosynovitis unresponsive to OP tx, admitted for IV abx's and further eval.
[2018-01-17] MEDS: Lactated Ringer's 1,000 ML IV SCH (23:50)
[2018-01-17] MEDS: HYDROcodone/Acetaminophen 10/325 mg Tablet PO PRN (23:51)
[2018-01-17] MEDS ORDERED: Sodium Chloride 0.9% 10 ML ONE (23:56)
[2018-01-18 00:01] LABS: #Basophils 0.1 thou/uL (0.0-0.2); #Lymphocytes 0.9 thou/uL (1.20-3.40); #Monocytes 0.4 thou/uL (0.11-0.59); #Neutrophils 1.7 thou/uL (1.40-6.50); %Basophils 2.3 % (0.0-1.0); %Eosinophils 1.2 % (0.0-10.0); %Lymphocytes 28.8 % (21.0-51.0); %Monocytes 11.7 % (0.0-10.0); Hemoglobin 10.5 g/dL (12.0-16.0); Mean Corpuscular HGB CONC 33.3 g/dL (32.0-36.0); Mean Corpuscular Hemoglobin 26.6 pg (27.0-31.0); Mean Corpuscular Volume 79.8 fl (81.0-99.0); Mean Platelet Volume 8.5 fL (7.4-10.4); Platelet Count 184 thou/uL (130-400); RBC Distribution Width 13.1 % (11.5-14.5); Red Blood Cell (RBC) Count 3.94 mill/uL (4.20-5.40); White Blood Cell (WBC) Count 3.1 thou/uL (4.8-10.8)
[2018-01-18 00:08] LABS: INR-International Normal Ratio 1.5; PTT 47.3 SEC (22.9-36.1); Prothrombin Time 18.3 SEC (12.0-14.7)
[2018-01-18 00:21] LABS: Anion Gap 14 mmol/L (10-20); BUN (Urea Nitrogen) 18 mg/dL (9.8-20.1); CRP (Inflammatory) Less than 0.50 mg/dL (= or < 0.5); Calc. Creatinine Clearance 0 mL/min (70-130); Calcium 9.6 mg/dL (7.8-10.44); Carbon Dioxide 23 mmol/L (23-31); Chloride 106 mmol/L (98-107); Estimated GFR-MDRD 70; Glucose 92 mg/dL (80-115); Potassium 3.7 mmol/L (3.5-5.1); Sodium 139 mmol/L (136-145)
[2018-01-18] MEDS: cefTRIAXone\\ROCEPHIN 1 GM in Syringe 10 ML IVPB SCH ×2 (00:30→23:28)
[2018-01-18] MEDS ORDERED: Sodium Chloride 0.9% 10 ML ONE (00:34)
[2018-01-18] MEDS: Vancomycin HCl 1.5 GM in Sodium Chloride 0.9% 250 ML 300 ML IVPB SCH (03:01)
[2018-01-18] MEDS: Docusate 100 MG CAP PO SCH ×2 (08:51→19:54)
--- NOTE | 2018-01-18 09:09 | PDOC.FM ---
- Subjective Subjective: 68 yo F w/ presumed infectious tenosynovitis hospital day 2. Pt reports her pain is improved and she has some increased ROM this am. Erythema is unchanged. Denies fever, chills, sweats, nvd. Does report some constipation, but is passing flatus. - Objective Vital Signs & Weight: Vital Signs (12 hours) Temp Pulse Resp BP Pulse Ox 01/18/18 07:58 98.9 F 65 20 104/63 97 01/18/18 03:04 98.0 F 63 16 102/62 99 01/17/18 23:03 98.9 F 76 18 01/17/18 22:41 98.9 F 76 18 120/78 98 Weight Weight 75.75 kg I&O: 01/17/18 01/18/18 01/19/18 06:59 06:59 06:59 Intake Total 582 Balance 582 Result Diagrams: 01/17/18 23:51 01/17/18 23:51 <Charles Pepe - Last Filed: 01/18/18 09:07> - Objective Vital Signs & Weight: Vital Signs (12 hours) Temp Pulse Resp BP Pulse Ox 01/18/18 17:26 99.7 F H 73 20 137/76 01/18/18 11:49 97.7 F 67 20 114/69 01/18/18 08:00 98.9 F 65 20 01/18/18 07:58 98.9 F 65 20 104/63 97 Weight Weight 75.75 kg I&O: 01/17/18 01/18/18 01/19/18 06:59 06:59 06:59 Intake Total 582 Balance 582 Result Diagrams: 01/17/18 23:51 01/17/18 23:51 <Rebecca Garnica - Last Filed: 01/18/18 17:33> Phys Exam - Physical Examination Constitutional: NAD HEENT: PERRLA, moist MMs, sclera anicteric Neck: no nodes, no JVD Respiratory: no wheezing, no rales, no rhonchi, clear to auscultation bilateral Cardiovascular: RRR, no significant murmur, no rub Gastrointestinal: soft, non-tender, no distention, positive bowel sounds Musculoskeletal: pulses present lt wrist decreased activ & passive ROM, ttp distal radius, mild edema Neurological: non-focal, moves all 4 limbs left hand sensation intact Psychiatric: normal affect Skin: no rash, cap refill <2 seconds <Charles Pepe - Last Filed: 01/18/18 09:07> Dx/Plan (1) Infectious tenosynovitis of left wrist extensor Code(s): M65.132 - OTHER INFECTIVE (TENO)SYNOVITIS, LEFT WRIST Status: Acute (2) COPD (chronic obstructive pulmonary disease) Status: Chronic (3) Chronic a-fib Code(s): I48.2 - CHRONIC ATRIAL FIBRILLATION Status: Chronic (4) Diabetes type 2, controlled Code(s): E11.9 - TYPE 2 DIABETES MELLITUS WITHOUT COMPLICATIONS Status: Chronic QualifierTitle: Diabetes mellitus detention insulin use: without needle loom operator use Diabetes mellitus complication status: without complication Qualified Code(s): E11.9 - Type 2 diabetes mellitus without complications (5) HTN (hypertension) Code(s): I10 - ESSENTIAL (PRIMARY) HYPERTENSION Status: Chronic QualifierTitle: Hypertension type: essential hypertension Qualified Code( s): I10 - Essential (primary) hypertension (6) Glaucoma Code(s): H40.9 - UNSPECIFIED GLAUCOMA Status: Chronic QualifierTitle: Glaucoma type: unspecified type Laterality: left (7) Hypothyroidism Code(s): E03.9 - HYPOTHYROIDISM, UNSPECIFIED Status: Chronic QualifierTitle: Hypothyroidism type: unspecified Qualified Code(s): E03.9 - Hypothyroidism, unspecified - Plan Plan: (1) Infectious Tenosynovitis of Left wrist: Cont IV abx and keep pt NPO. Will consult Dr. Goode this AM, appreciate recommendations. Subjective improvement from yesterday with IV abx, per pt. (2) HTN: Home meds (3) A fib: Hold xarelto. Pt reports she did take xarelto yesterday (4) T2DM: home meds (5) COPD: home meds (6) hypothyroidism: continue home meds (7) glaucoma: home meds <Charles Pepe - Last Filed: 01/18/18 09:07> Attending Addendum - Attending Addendum Date/Time: 01/18/18 [id number] I personally evaluated the patient and discussed the management with Dr. Pepe and Dr. Merlos I agree with the History, Examination, Assessment and Plan documented above with any addition or exceptions noted below. 68 yo female admitted with left extensor tenosynovitis HD#1 Reports she is now able to move her wrist after receiving antibx. Awaiting hand surg recs. Continue empiric treatment at this time. Sofia <Rebecca Garnica - Last Filed: 01/18/18 17:33>
[2018-01-18] MEDS: Lactated Ringer's 1,000 ML IV SCH ×2 (10:38→19:52)
[2018-01-18] MEDS: HYDROcodone/Acetaminophen 10/325 mg Tablet PO PRN ×2 (17:36→21:42)
--- NOTE | 2018-01-19 00:50 | CON ---
DATE OF CONSULTATION: 01/18/2018 HISTORY OF PRESENT ILLNESS: Ms. Cadena is a 68-year-old female who has a history of diabetes mellitus , hypertension, arthritis, chronic low back pain who was seen by Dr. Goode few days ago diagnosed with inflammation and possible cellulitis over the dorsum of the left wrist. The patient was started on p.o. clindamycin. Her pain became worse and she presented to [facility] who sent her to the hospital. She had an MRI performed which showed some left wrist extensor tenosynovitis. No abscess was noted and no involvement into the wrist joint. Because of failure with p.o. antibiot ics, patient was admitted last night, started on IV antibiotics. The patient states today that her p ain has decreased and she is able to move her left wrist and digits in her left hand better since dania t time, though she states that she has developed some mild pain and swelling on the ulnar aspect of t he right wrist and at the base of the left thumb over the first CMC joint area. PAST MEDICAL HISTORY AND MEDICAL ILLNESSES: Diabetes mellitus, hypothyroidism, microcytic anemia, at rial fibrillation, hepatitis C, hypertension, COPD, glaucoma, peripheral neuropathy, and chronic low back pain. PAST SURGICAL HISTORY: The patient has had knee surgery, eye surgery x2, total abdominal hysterectom y and BSO, cholecystectomy, and internal hemorrhoid resection. PHYSICAL EXAMINATION: VITAL SIGNS: The patient has been afebrile up to the last temperature taken, this afternoon was 99.7 . Other values were normal. Her vital signs otherwise have been normal. EXTREMITIES: Physical exam of the left wrist, the patient does have some mild swelling and tendernes s over the dorsum of the left wrist. The patient is able to flex and extend all of her left fingers and thumb fully without pain. She has good range of motion of the left wrist and full pronation and supination with minimal discomfort. There is no significant erythema. There are no open wounds. Th e right wrist has some swelling at the base of the first CMC joint and over the ulnar styloid. There is mild swelling, but again no erythema. The patient is able to fully move her right forearm, wrist and digits in her right hand well with minimal discomfort. IMPRESSION: Cellulitis, tenosynovitis over the dorsum of the left wrist. The patient is showing goo d response with IV antibiotics. PLAN: Since there was no abscess noted on the MRI and the patient is progressing well with IV antibi otics. I would recommend continue with IV antibiotics and see if she cannot completely heal with dania t. I will check on the patient tomorrow.
[2018-01-19] MEDS: Vancomycin HCl 1.5 GM in Sodium Chloride 0.9% 250 ML 300 ML IVPB SCH (03:00)
[2018-01-19] MEDS: Lactated Ringer's 1,000 ML IV SCH ×3 (03:00→22:00)
[2018-01-19] MEDS: HYDROcodone/Acetaminophen 10/325 mg Tablet PO PRN ×4 (03:01→18:19)
[2018-01-19 06:09] LABS: Anion Gap 10 mmol/L (10-20); BUN (Urea Nitrogen) 14 mg/dL (9.8-20.1); Calc. Creatinine Clearance 86 mL/min (70-130); Calcium 8.7 mg/dL (7.8-10.44); Carbon Dioxide 26 mmol/L (23-31); Chloride 106 mmol/L (98-107); Estimated GFR-MDRD Greater than 90; Glucose 89 mg/dL (80-115); Potassium 3.8 mmol/L (3.5-5.1); Sodium 138 mmol/L (136-145)
[2018-01-19] MEDS ORDERED: PROVENTIL INHALER 6.7 G (200 INHALATIONS) INH PRN ×2 (06:18→11:00)
[2018-01-19 06:22] LABS: Hemoglobin 9.6 g/dL (12.0-16.0); Mean Corpuscular HGB CONC 32.6 g/dL (32.0-36.0); Mean Corpuscular Hemoglobin 25.7 pg (27.0-31.0); Mean Corpuscular Volume 78.9 fl (81.0-99.0); Mean Platelet Volume 8.7 fL (7.4-10.4); Platelet Count 147 thou/uL (130-400); RBC Distribution Width 12.7 % (11.5-14.5); Red Blood Cell (RBC) Count 3.71 mill/uL (4.20-5.40); White Blood Cell (WBC) Count 1.7 thou/uL (4.8-10.8)
[2018-01-19 06:23] LABS: Band 1 % (5-11); Eosinophils 3 % (0-10); Lymphocytes 23 % (21-51); MDiff Complete? YES; Monocytes 9 % (0-10); Neutrophil 62 % (42-75); Reactive Lymphocytes 1 % (0-10)
[2018-01-19] MEDS ORDERED: Levothyroxine Sodium 25 MCG TAB PO SCH (06:45)
[2018-01-19] MEDS ORDERED: Amlodipine 10 MG TAB PO SCH (09:00)
[2018-01-19] MEDS: Docusate 100 MG CAP PO SCH ×2 (10:16→21:34)
[2018-01-19] MEDS: Ondansetron ODT 4 MG TAB PO PRN (10:16)
--- NOTE | 2018-01-19 10:42 | PRG ---
DATE OF SERVICE: 01/19/2018 The patient states that her left wrist is feeling much better. She has less swelling and is able to move it much better without pain. The pain that she had over the ulnar aspect of the right wrist at the base of the 1st thumb at the first CMC joint is also better, but she developed swelling and pain in the fingers of the right hand, particularly the index finger. The patient has been afebrile. Vital signs have been stable. LABORATORY: Today CBC shows white count of 1.7, hemoglobin 9.6, hematocrit 29.3, platelet count 147, 000. PHYSICAL EXAMINATION: EXTREMITIES: The patient has mild swelling, but it is less over the dorsum of the left wrist and she is able to flex and extend her left wrist well without pain. She is able make a full fist in the le ft hand is able to fully extend the fingers without pain. There is no erythema, no open wounds. The right upper extremity, the ulnar aspect of the wrist is nontender to palpation. The base of the prudencio mb at the first CMC joint is also nonpainful. She does have some swelling in all of her fingers, but has pain with movement of the index finger. IMPRESSION: The patient is improving with the tenosynovitis and cellulitis in the dorsum of the left wrist, but with the movement of the pain and swelling from the left wrist into the right wrist and n ow today into the right hand, it appears to be inflammatory process as well. PLAN: I offered to put the patient on corticosteroids to help decrease some of the inflammation. I did explain to her that it would make her glucose rise since she is diabetic. The patient did not wa nt to do that, just wanted to stay on IV antibiotics which is fine. We will continue to follow her w hile she is in the hospital.
[2018-01-19] MEDS ORDERED: NIFEdipine XL 60 MG TAB PO SCH (11:30)
[2018-01-19] MEDS ORDERED: Spironolactone 25 MG TAB PO SCH (11:30)
--- NOTE | 2018-01-19 11:35 | PDOC.FM ---
- Subjective Subjective: Pt states that she can move her wrist more than yesterday and states that her pain is better controlled. She was seen by ortho who recommend medical management with IV antibiotics. - Objective Vital Signs & Weight: Vital Signs (12 hours) Temp Pulse Resp BP BP BP Pulse Ox 01/19/18 11:30 65 134/68 01/19/18 07:28 99.0 F 73 12 119/68 99 01/19/18 04:00 98.2 F 66 16 132/73 96 Weight Weight 75.75 kg I&O: 01/18/18 01/19/18 01/20/18 06:59 06:59 06:59 Intake Total 582 1680 Balance 582 1680 Result Diagrams: 01/19/18 05:30 01/19/18 05:30 <Martha Hooks - Last Filed: 01/19/18 11:36> - Objective Vital Signs & Weight: Vital Signs (12 hours) Temp Pulse Resp BP BP BP Pulse Ox 01/19/18 11:38 98.6 F 65 12 134/68 100 01/19/18 11:30 65 134/68 01/19/18 07:28 99.0 F 73 12 119/68 99 01/19/18 04:00 98.2 F 66 16 132/73 96 Weight Weight 75.75 kg I&O: 01/18/18 01/19/18 01/20/18 06:59 06:59 06:59 Intake Total 582 1680 Balance 582 1680 Result Diagrams: 01/19/18 05:30 01/19/18 05:30 <Julio Garcia - Last Filed: 01/19/18 11:43> Phys Exam - Physical Examination Constitutional: NAD HEENT: PERRLA, moist MMs Neck: no JVD Respiratory: no wheezing, no rales, no rhonchi, clear to auscultation bilateral Cardiovascular: RRR, no significant murmur, no rub Gastrointestinal: soft, non-tender, no distention Musculoskeletal: no edema, pulses present mild swelling, erythema, and ttp; passive rom intact of left wrist Psychiatric: normal affect, A&O x 3 Skin: no rash <Martha Hooks - Last Filed: 01/19/18 11:36> Dx/Plan (1) Infectious tenosynovitis of left wrist extensor Code(s): M65.132 - OTHER INFECTIVE (TENO)SYNOVITIS, LEFT WRIST Status: Acute (2) COPD (chronic obstructive pulmonary disease) Status: Chronic (3) Chronic a-fib Code(s): I48.2 - CHRONIC ATRIAL FIBRILLATION Status: Chronic (4) Diabetes type 2, controlled Code(s): E11.9 - TYPE 2 DIABETES MELLITUS WITHOUT COMPLICATIONS Status: Chronic QualifierTitle: Diabetes mellitus rodent exterminator insulin use: without jail use Diabetes mellitus complication status: without complication Qualified Code(s): E11.9 - Type 2 diabetes mellitus without complications (5) GERD (gastroesophageal reflux disease) Code(s): K21.9 - GASTRO-ESOPHAGEAL REFLUX DISEASE WITHOUT ESOPHAGITIS Status: Chronic QualifierTitle: Esophagitis presence: with esophagitis Qualified Code(s) : K21.0 - Gastro-esophageal reflux disease with esophagitis (6) HTN (hypertension) Code(s): I10 - ESSENTIAL (PRIMARY) HYPERTENSION Status: Chronic QualifierTitle: Hypertension type: essential hypertension Qualified Code( s): I10 - Essential (primary) hypertension (7) Hypothyroidism Code(s): E03.9 - HYPOTHYROIDISM, UNSPECIFIED Status: Chronic QualifierTitle: Hypothyroidism type: unspecified Qualified Code(s): E03.9 - Hypothyroidism, unspecified - Plan Plan: (1) Tenosynovitis of Left wrist: Improved. Cont IV abx of vanc and rocephin. Pt can have a CC diet. We will dc fluids. Ortho consulted, appreciate recommendations. Subjective improvement from yesterday with IV abx, per pt. ESR wnl. No signs on MRI of abscess or osteo. (2) HTN: Continue nifedipine. (3) A fib: Continue metoprolol and xarelto (4) T2DM: Continue metformin (5) COPD: Continue dulera and duonebs prn (6) Hypothyroidism: continue levothyroxine (7) GERD- continue nexium <Martha Hooks - Last Filed: 01/19/18 11:36> Attending Addendum - Attending Addendum Date/Time: 01/19/18 1141 I personally evaluated the patient and discussed the management with Dr. Tamara Pierce. I agree with the History, Examination, Assessment and Plan documented above with any addition or exceptions noted below. Patient doing well, reports pain in hand is stable and controlled with medication. No current plans for operative mgmt as she is improving with IV antibiotics. Await further recs from ortho but hopeful for transition to PO abx and discharge home in the next 1-2 days. No other active problems. <Julio Garcia R - Last Filed: 01/19/18 11:43>
[2018-01-19] MEDS ORDERED: Polyethylene Glycol 3350 17 GM Packet PO SCH (14:45)
[2018-01-19] MEDS: Rivaroxaban 10 MG TAB PO SCH (16:56)
[2018-01-19] MEDS: metFORMIN 500 MG TAB PO SCH (16:56)
[2018-01-19] MEDS: Mometasone/Formoterol 120 PUFF INHALER INH SCH (19:22)
[2018-01-19] MEDS: Rosuvastatin 10 MG TAB PO SCH (21:30)
[2018-01-19] MEDS: NIFEdipine XL 60 MG TAB PO SCH (21:35)
[2018-01-19] MEDS: cefTRIAXone\\ROCEPHIN 1 GM in Syringe 10 ML IVPB SCH (23:48)
[2018-01-20 02:46] LABS: Vancomycin, Trough 8.1 ug/mL
[2018-01-20] MEDS: Vancomycin HCl 1.5 GM in Sodium Chloride 0.9% 250 ML 300 ML IVPB SCH (03:03)
[2018-01-20 03:05] LABS: Anion Gap 12 mmol/L (10-20); BUN (Urea Nitrogen) 10 mg/dL (9.8-20.1); Calc. Creatinine Clearance 92 mL/min (70-130); Calcium 9.6 mg/dL (7.8-10.44); Carbon Dioxide 28 mmol/L (23-31); Chloride 104 mmol/L (98-107); Estimated GFR-MDRD Greater than 90; Glucose 92 mg/dL (80-115); Potassium 3.9 mmol/L (3.5-5.1); Sodium 140 mmol/L (136-145)
[2018-01-20 03:13] LABS: Band 1 % (5-11); Elliptocytes SLIGHT = 2-5 cells (100X) (0-1/hpf); Eosinophils 5 % (0-10); Lymphocytes 46 % (21-51); MDiff Complete? YES; Mean Corpuscular HGB CONC 32.4 g/dL (32.0-36.0); Mean Corpuscular Hemoglobin 25.7 pg (27.0-31.0); Mean Corpuscular Volume 79.4 fl (81.0-99.0); Mean Platelet Volume 8.4 fL (7.4-10.4); Monocytes 6 % (0-10); Neutrophil 42 % (42-75); Platelet Count 155 thou/uL (130-400); RBC Distribution Width 12.9 % (11.5-14.5); Red Blood Cell (RBC) Count 3.88 mill/uL (4.20-5.40); White Blood Cell (WBC) Count 1.9 thou/uL (4.8-10.8)
[2018-01-20] MEDS: HYDROcodone/Acetaminophen 10/325 mg Tablet PO PRN ×2 (04:44→21:40)
[2018-01-20] MEDS: Levothyroxine Sodium 25 MCG TAB PO SCH (06:18)
--- NOTE | 2018-01-20 06:33 | PDOC.FM ---
- Subjective Subjective: Mrs. Cadena is complaining of blisters on her left wrist this morning. She said they popped up overnight. Not painful yet. She has had shingles before. She also says she completed her treatment for hepatitis C. - Objective Vital Signs & Weight: Vital Signs (12 hours) Temp Pulse Resp BP BP BP Pulse Ox 01/20/18 03:50 99.1 F 69 20 120/74 01/19/18 21:35 62 116/71 01/19/18 20:00 98.9 F 65 20 116/71 95 01/19/18 19:22 96 Weight Weight 75.75 kg I&O: 01/18/18 01/19/18 01/20/18 06:59 06:59 06:59 Intake Total 582 1680 1325 Balance 582 1680 1325 Result Diagrams: 01/20/18 02:07 01/20/18 02:07 <Martha Hooks - Last Filed: 01/20/18 07:32> - Objective Vital Signs & Weight: Vital Signs (12 hours) Temp Pulse Resp BP 01/20/18 08:01 66 01/20/18 07:47 98.4 F 66 20 01/20/18 03:50 99.1 F 69 20 120/74 Weight Weight 75.75 kg I&O: 01/19/18 01/20/18 01/21/18 06:59 06:59 06:59 Intake Total 1680 1325 Balance 1680 1325 Result Diagrams: 01/20/18 02:07 01/20/18 02:07 <Julio Garcia - Last Filed: 01/20/18 10:54> Phys Exam - Physical Examination Constitutional: NAD HEENT: PERRLA, moist MMs Neck: no JVD Respiratory: no wheezing, no rales, clear to auscultation bilateral Cardiovascular: RRR, no significant murmur Gastrointestinal: soft, non-tender, no distention able to passively flex and extend left wrist Neurological: non-focal, normal sensation Psychiatric: normal affect, A&O x 3 Deviation from normal: cluster of blisters with some mild erythema on left wrist <Martha Hooks - Last Filed: 01/20/18 07:32> Dx/Plan (1) Infectious tenosynovitis of left wrist extensor Code(s): M65.132 - OTHER INFECTIVE (TENO)SYNOVITIS, LEFT WRIST Status: Acute (2) COPD (chronic obstructive pulmonary disease) Status: Chronic (3) Chronic a-fib Code(s): I48.2 - CHRONIC ATRIAL FIBRILLATION Status: Chronic (4) Diabetes type 2, controlled Code(s): E11.9 - TYPE 2 DIABETES MELLITUS WITHOUT COMPLICATIONS Status: Chronic QualifierTitle: Diabetes mellitus caisson worker insulin use: without caisson worker use Diabetes mellitus complication status: without complication Qualified Code(s): E11.9 - Type 2 diabetes mellitus without complications (5) GERD (gastroesophageal reflux disease) Code(s): K21.9 - GASTRO-ESOPHAGEAL REFLUX DISEASE WITHOUT ESOPHAGITIS Status: Chronic QualifierTitle: Esophagitis presence: with esophagitis Qualified Code(s) : K21.0 - Gastro-esophageal reflux disease with esophagitis (6) HTN (hypertension) Code(s): I10 - ESSENTIAL (PRIMARY) HYPERTENSION Status: Chronic QualifierTitle: Hypertension type: essential hypertension Qualified Code( s): I10 - Essential (primary) hypertension (7) Hypothyroidism Code(s): E03.9 - HYPOTHYROIDISM, UNSPECIFIED Status: Chronic QualifierTitle: Hypothyroidism type: unspecified Qualified Code(s): E03.9 - Hypothyroidism, unspecified - Plan Plan: 1 Tenosynovitis of Left wrist: Improved. Cont IV abx of vanc and rocephin. Pt can have a CC diet. We will dc fluids. Ortho consulted, appreciate recommendations. Subjective improvement from yesterday with IV abx, per pt. ESR wnl. No signs on MRI of abscess or osteo. 2. Shingles-Pt has a cluster of blisters that are on her left dorsal wrist near the location of her tenosynovitis. We will start treatment with acyclovir 800mg five times a day for 10 days. 2. Neutropenia-pt has hepatitis C that has been treated. Ordered an HIV, hep B, RPR to further evaluate 3. Normocytic anemia-pt says she used to take iron. She may have a mixed anemia , I will order iron studies and vit b12/folate. 4. Hepatitis C s/p treatment 5 HTN: Continue nifedipine. 6 A fib: Continue metoprolol and xarelto 7 T2DM: Continue metformin 8 COPD: Continue dulera and duonebs prn 9 Hypothyroidism: continue levothyroxine 10 GERD- continue nexium <Martha Hooks - Last Filed: 01/20/18 07:32> Attending Addendum - Attending Addendum Date/Time: 01/20/18 [id number] I personally evaluated the patient and discussed the management with Dr. Tamara Pierce. I agree with the History, Examination, Assessment and Plan documented above with any addition or exceptions noted below. Patient doing well from pain standpoint. Continue IV abx and await further recs from ortho, though surgical mgmt does not appear to be in the future. Her VAncomycin will be increased due to levels being subtherapeutic. WIll need close monitoring to prevent toxicity. Leukopenia is chronic and will need outpatient workup if continues. Hopeful change to PO abx tomorrow. <Julio Garcia - Last Filed: 01/20/18 10:54>
[2018-01-20] MEDS: Mometasone/Formoterol 120 PUFF INHALER INH SCH ×2 (07:08→18:52)
[2018-01-20] MEDS ORDERED: Vancomycin HCl 1 GM in Sodium Chloride 0.9% 250 ML 300 ML IVPB SCH (07:45)
[2018-01-20] MEDS: metFORMIN 500 MG TAB PO SCH ×2 (07:54→17:39)
[2018-01-20] MEDS: Docusate 100 MG CAP PO SCH ×2 (07:55→21:36)
[2018-01-20] MEDS: Spironolactone 25 MG TAB PO SCH (07:56)
[2018-01-20] MEDS: NIFEdipine XL 60 MG TAB PO SCH ×2 (08:01→21:37)
[2018-01-20 08:06] LABS: ALT (SGPT) 13 U/L (8-55); AST (SGOT) 20 U/L (5-34); Albumin 4.1 g/dL (3.4-4.8); Alkaline Phosphatase 60 U/L (40-150); Bilirubin, Direct 0.1 mg/dL (0.1-0.3); Bilirubin, Total 0.2 mg/dL (0.2-1.2); Protein, Total 7.7 g/dL (6.0-8.3)
[2018-01-20 09:33] LABS: Syphilis Antibody Index 15.99 S/CO (<1.00 Non-Reactive)
[2018-01-20 10:09] LABS: HBSAg Index 0.14 S/CO (0-0.99); Hep B Surf Ag Non-Reactive S/CO (NonReactive)
[2018-01-20 10:10] LABS: HIV (1/2) Antibody/Antigen Non-Reactive (NonReactive); HIV 1/2 INDEX 0.11 S/CO (<1.00)
[2018-01-20] MEDS: Lactated Ringer's 1,000 ML IV SCH (10:16)
--- NOTE | 2018-01-20 13:12 | PRG ---
DATE OF SERVICE: 01/20/2018 SUBJECTIVE: Ms. Cadena states that her left and right wrist are both feeling much better. Still has some pain in the right index finger, but it is less than yesterday. PHYSICAL EXAMINATION: Patient's maximum temperature is 99.1. Vital signs are stable on physical exa m. The patient has good range of motion in the left wrist and right wrist without pain. She is able to move her right index and middle finger better without pain and there is less swelling. PLAN: With this migratory inflammatory process going from joint to joint, the patient's problem appe ars to be more rheumatologic than orthopedics. No surgery is indicated on any of these joints. She is getting better with some joints and moving to other places, no orthopedic treatment is needed at t his point. She will follow up with Dr. Goode as needed.
[2018-01-20] MEDS: Vancomycin HCl 1.25 GM in Sodium Chloride 0.9% 250 ML 250 ML IVPB SCH (14:44)
[2018-01-20] MEDS: Fluticasone Propionate Nasal Spray 16 gm Bottle NASAL SCH (14:44)
[2018-01-20] MEDS: Rivaroxaban 10 MG TAB PO SCH (17:39)
[2018-01-20] MEDS: Ferrous Sulfate 325 MG TAB PO SCH (17:39)
[2018-01-20] MEDS: Rosuvastatin 10 MG TAB PO SCH (21:37)
[2018-01-20 22:32] LABS: Syphilis Titer Non-Reactive (Negative)
[2018-01-20 22:39] LABS: Syphilis Antibody INDETERMINATE (Nonreactive)
[2018-01-21] MEDS: cefTRIAXone\\ROCEPHIN 1 GM in Syringe 10 ML IVPB SCH (00:18)
[2018-01-21] MEDS: Vancomycin HCl 1.25 GM in Sodium Chloride 0.9% 250 ML 250 ML IVPB SCH (02:09)
[2018-01-21] MEDS: HYDROcodone/Acetaminophen 10/325 mg Tablet PO PRN ×2 (02:10→06:12)
[2018-01-21] MEDS: Levothyroxine Sodium 25 MCG TAB PO SCH (06:13)
[2018-01-21 06:17] LABS: Anion Gap 12 mmol/L (10-20); BUN (Urea Nitrogen) 11 mg/dL (9.8-20.1); Calc. Creatinine Clearance 89 mL/min (70-130); Calcium 9.5 mg/dL (7.8-10.44); Carbon Dioxide 25 mmol/L (23-31); Chloride 103 mmol/L (98-107); Estimated GFR-MDRD Greater than 90; Glucose 90 mg/dL (80-115); Potassium 4.2 mmol/L (3.5-5.1); Sodium 136 mmol/L (136-145)
[2018-01-21 06:30] LABS: Band 3 % (5-11); Eosinophils 7 % (0-10); Lymphocytes 25 % (21-51); MDiff Complete? YES; Mean Corpuscular HGB CONC 32.7 g/dL (32.0-36.0); Mean Corpuscular Hemoglobin 25.8 pg (27.0-31.0); Mean Corpuscular Volume 78.9 fl (81.0-99.0); Monocytes 10 % (0-10); Neutrophil 55 % (42-75); Platelet Count 168 thou/uL (130-400); RBC Distribution Width 13.1 % (11.5-14.5); Red Blood Cell (RBC) Count 4.27 mill/uL (4.20-5.40); White Blood Cell (WBC) Count 3.2 thou/uL (4.8-10.8)
[2018-01-21] MEDS: Mometasone/Formoterol 120 PUFF INHALER INH SCH (06:35)
[2018-01-21] MEDS ORDERED: Ascorbic Acid 500 mg Chewable Tablet PO SCH (08:00)
[2018-01-21] MEDS: Ondansetron ODT 4 MG TAB PO PRN (09:32)
[2018-01-21] MEDS: Spironolactone 25 MG TAB PO SCH ×2 (09:34→10:51)
[2018-01-21] MEDS: Fluticasone Propionate Nasal Spray 16 gm Bottle NASAL SCH (09:35)
[2018-01-21] MEDS: Ferrous Sulfate 325 MG TAB PO SCH (10:50)
[2018-01-21] MEDS: NIFEdipine XL 60 MG TAB PO SCH (10:50)
[2018-01-21] MEDS: Acyclovir 800 mg Tablet PO SCH ×2 (10:50→11:26)
[2018-01-21] MEDS: metFORMIN 500 MG TAB PO SCH (10:50)
[2018-01-21] MEDS: Docusate 100 MG CAP PO SCH (10:50)
[2018-01-21 11:00] VITALS: BP 127/85; TEMP 98.3
--- NOTE | 2018-01-21 11:21 | PDOC.FM ---
- Subjective Subjective: No acute events overnight. Pt reports her wrist pain has improved. Lesions on left hand have remained stable and she denies itching and pain associated with lesions. Discussed positive syphillis Abs with pt who is unaware of previous syphillis dx and states she has never been treated for syphillis in past. Will await further studies prior to initiation of treatment. - Objective Vital Signs & Weight: Vital Signs (12 hours) Temp Pulse Resp BP BP Pulse Ox 01/21/18 10:59 98.3 F 73 18 127/85 01/21/18 10:50 67 107/64 01/21/18 08:00 96.4 F L 67 16 107/64 93 L 01/21/18 03:00 98.9 F 70 18 102/57 L Weight Weight 75.75 kg I&O: 01/20/18 01/21/18 01/22/18 06:59 06:59 06:59 Intake Total 1325 775 Balance 1325 775 Result Diagrams: 01/21/18 05:14 01/21/18 05:14 <Charles Pepe - Last Filed: 01/21/18 11:20> - Objective Vital Signs & Weight: Vital Signs (12 hours) Temp Pulse Resp BP BP Pulse Ox 01/21/18 10:59 98.3 F 73 18 127/85 01/21/18 10:50 67 107/64 01/21/18 08:00 96.4 F L 67 16 107/64 93 L 01/21/18 03:00 98.9 F 70 18 102/57 L Weight Weight 75.75 kg I&O: 01/20/18 01/21/18 01/22/18 06:59 06:59 06:59 Intake Total 1325 775 Balance 1325 775 Result Diagrams: 01/21/18 05:14 01/21/18 05:14 <Julio Garcia - Last Filed: 01/21/18 11:56> Phys Exam - Physical Examination Constitutional: NAD HEENT: moist MMs, sclera anicteric Neck: no nodes, no JVD Respiratory: no wheezing, no rales, no rhonchi, clear to auscultation bilateral Cardiovascular: RRR, no significant murmur, no rub Gastrointestinal: soft, non-tender, no distention, positive bowel sounds Musculoskeletal: no edema, pulses present Improved AROM and PROM of left wrist and digit flexion and extension Neurological: non-focal, moves all 4 limbs Deviation from normal: vesicular lesions left hand w/o erythema. <Charles Pepe - Last Filed: 01/21/18 11:20> Dx/Plan (1) Infectious tenosynovitis of left wrist extensor Code(s): M65.132 - OTHER INFECTIVE (TENO)SYNOVITIS, LEFT WRIST Status: Acute (2) COPD (chronic obstructive pulmonary disease) Status: Chronic (3) Chronic a-fib Code(s): I48.2 - CHRONIC ATRIAL FIBRILLATION Status: Chronic (4) Diabetes type 2, controlled Code(s): E11.9 - TYPE 2 DIABETES MELLITUS WITHOUT COMPLICATIONS Status: Chronic QualifierTitle: Diabetes mellitus middle or intermediate school principal insulin use: without middle or intermediate school principal use Diabetes mellitus complication status: without complication Qualified Code(s): E11.9 - Type 2 diabetes mellitus without complications (5) HTN (hypertension) Code(s): I10 - ESSENTIAL (PRIMARY) HYPERTENSION Status: Chronic QualifierTitle: Hypertension type: essential hypertension Qualified Code( s): I10 - Essential (primary) hypertension (6) Glaucoma Code(s): H40.9 - UNSPECIFIED GLAUCOMA Status: Chronic QualifierTitle: Glaucoma type: unspecified type Laterality: left (7) Hypothyroidism Code(s): E03.9 - HYPOTHYROIDISM, UNSPECIFIED Status: Chronic QualifierTitle: Hypothyroidism type: unspecified Qualified Code(s): E03.9 - Hypothyroidism, unspecified (8) GERD (gastroesophageal reflux disease) Code(s): K21.9 - GASTRO-ESOPHAGEAL REFLUX DISEASE WITHOUT ESOPHAGITIS Status: Chronic QualifierTitle: Esophagitis presence: with esophagitis Qualified Code(s) : K21.0 - Gastro-esophageal reflux disease with esophagitis - Plan Plan: 1 Tenosynovitis of Left wrist: Improved. Given migratory type joint pain, concern for inflammatory process as opposed to infectious. Ortho consulted, appreciate recommendations. Will DC abx today and touch base with ortho. Likely stable for DC to home with OP f/u. 2. Vesicular lesions: blister 2/2 splint use vs shingles vs herpes simplex. Will hold acyclovir for now and have pt f/u op. She denies prodromal symptoms and pain around lesions. Non-dermatomal distribution and lack of pain and erythema makes shingles unlikely. Ok for DC with OP f/u pending Ortho. 2. Neutropenia-pt has hepatitis C that has been treated. RPR neg syph Abs inderterminate, will await final lab study before initiating treatment. Will need OP f/u. Ok for DC 3. Normocytic anemia-Cont iron, add vit c for absorption. B12 normal 4. Hepatitis C s/p treatment 5 HTN: Home meds 6 A fib: Home meds 7 T2DM:Home meds 8 COPD: Dulera and duonebs, stable. Cont plan of care 9 Hypothyroidism: home meds 10 GERD- nexium daily <Charles Pepe - Last Filed: 01/21/18 11:20> Attending Addendum - Attending Addendum Date/Time: 01/21/18 2394 I personally evaluated the patient and discussed the management with Dr. Pepe. I agree with the History, Examination, Assessment and Plan documented above with any addition or exceptions noted below. Patient with continued improvement. Ortho does not feel this is related to infectious cause. Patient to be discharged today after completing 4 days of IV abx. No need currently for continued abx. Rash does not appear to be Zoster and will defer on treatment with Acyclovir. Discharge home today. <Julio Garcia - Last Filed: 01/21/18 11:56>
--- NOTE | 2018-01-22 13:12 | DIS-2 ---
LOCATION: [place], [place]. DATE OF ADMISSION: 01/17/2018 DATE OF DISCHARGE: 01/21/2018 RESIDENT PHYSICIAN: Dr. Charles Pepe ADMITTING ATTENDING: Dr. Ernesto Rodriguez DISCHARGE ATTENDING: Dr. Julio Garcia CONSULTATIONS Orthopedic Surgery, Dr. Mario Prieto PROCEDURES: None. PRIMARY DIAGNOSES: Cellulitis of her left wrist extensor versus infectious tenosynovitis of left wri st extensor. SECONDARY DIAGNOSES: 1. Hypertension. 2. Atrial fibrillation. 3. Hypothyroidism. 4. Type 2 diabetes. 5. Chronic obstructive pulmonary disease. DISCHARGE MEDICATIONS: 1. Albuterol 90 mcg inhaled p.r.n. 2. Vitamin C 500 mg p.o. b.i.d. with meals. 3. Alphagan 0.1% ophthalmic solution 1 drop right eye b.i.d. 4. Symbicort 1 puff inhaled b.i.d. 5. Nexium 40 mg p.o. daily. 6. Ferrous sulfate 325 mg p.o. b.i.d. with meals. 7. Flonase 1 spray each naris daily. 8. Xopenex 1 puff inhaled q.4h. 9. Synthroid 25 mcg daily. 10. Metformin 500 mg 1 tab p.o. b.i.d. 11. Metoprolol 50 mg p.o. b.i.d. 12. Procardia 1 tab 60 mg p.o. b.i.d. 13. Xarelto 20 mg daily. 14. Rosuvastatin 10 mg p.o. at bedtime. 15. Spironolactone 25 mg p.o. daily. DISCONTINUED MEDICATIONS: None. HISTORY OF PRESENT ILLNESS AND HOSPITAL COURSE: The patient is a 68-year-old female with past histor y of hypertension and diabetes mellitus type 2 who presented to the hospital for left wrist pain over the last 3 days that was worse with any movement or weightbearing. She denied any trauma to the wri st or any focal lesions in the area. She did endorse some erythema over the dorsal aspect of the lef t wrist. She denied any fever, chills, nausea, vomiting, numbness, tingling. She was seen in the ER for the same symptoms on 01/15/2018 and had an MRI done at that time that showed possible tenosynovi tis with overlying cellulitis. The patient was sent home from the ER with p.o. clindamycin and it wa s recommended that she follow up with Orthopedic Surgery after being sent home from the ER; however, she was unable to attend that appointment. On admission to the hospital, the patient was started on IV vancomycin and Rocephin. A consult was made for Orthopedic Surgery to evaluate. The patient was seen and examined by Orthopedic Surgery who ultimately ruled out infectious tenosynovitis at which po int the patient was stopped on her IV antibiotics as it was thought to be more of a migratory inflamm atory process. They determined there is no indication for surgery and she would follow up with them as needed in the future. Prior to discharge, the patient did develop approximately 4-5 vesicles over the dorsal aspect of the hand between the first and second digits; however, this was nontender to to uch and it was also an area of friction from the wrist brace that the patient was wearing. She was g iven 1 day of acyclovir for concern of herpes; however, this was ultimately ruled out, at which point the acyclovir was discontinued. DISPOSITION: The patient left the hospital in stable condition. DISCHARGE INSTRUCTIONS: 1. Location: Home. 2. Diet: Heart healthy, consistent carbohydrates. 3. Activity: Ad-loly. 4. Followup: Follow up with primary care provider in 7-10 days following discharge 5. Followup: Follow up with Orthopedic Surgery as needed in the future.
[2018-01-22 15:21] LABS: Folate,Hemolysate 303.8 ng/mL (Not Estab.); Hematocrit 29.6 % (34.0-46.6); RBC Folate Test Component 1026 ng/mL (>498)
== END 2018-01-21 14:10 | disposition home or self-care (01) | DRG 558 ==
LOC: 3SE 22:16
PROVIDERS: ADMIT Emergency Medicine; ATTEND Emergency Medicine
DX: M65.132 Other infective (teno)synovitis, left wrist (principal); E11.42 Type 2 diabetes mellitus with diabetic polyneuropathy; I48.2 Chronic atrial fibrillation; D70.9 Neutropenia, unspecified; L03.114 Cellulitis of left upper limb; D50.9 Iron deficiency anemia, unspecified; B19.20 Unspecified viral hepatitis C without hepatic coma; G89.29 Other chronic pain; I10 Essential (primary) hypertension; M25.531 Pain in right wrist; M19.90 Unspecified osteoarthritis, unspecified site; M54.5 Low back pain; E03.9 Hypothyroidism, unspecified; J44.9 Chronic obstructive pulmonary disease, unspecified; H40.9 Unspecified glaucoma; K21.0 Gastro-esophageal reflux disease with esophagitis; R23.8 Other skin changes
CPT/HCPCS: 36415; 80048; 80053; 80076; 80202; 82607; 82728; 82747; 83540; 83550; 85025; 85610; 85652; 85730; 86140; 86593; 86780; 87040; 87340; 87389; 96374; 96375; J2270; A4216; A9579; J0696; J1885; J2001; J2405; J3370; J7050; Q0162

== ENCOUNTER 2018-03-08 17:46 | Emergency (ER) | payer MEDICARE, OTHER ==
[2018-03-08] MEDS ORDERED: HYDROcodone/Acetaminophen 10/325 mg Tablet ONE (21:07)
== END 2018-03-08 21:17 | disposition home or self-care (01) ==
LOC: ERS 17:46
DX: G89.18 Other acute postprocedural pain (principal); M19.012 Primary osteoarthritis, left shoulder; M19.011 Primary osteoarthritis, right shoulder; I48.91 Unspecified atrial fibrillation; I10 Essential (primary) hypertension; M10.9 Gout, unspecified; J44.9 Chronic obstructive pulmonary disease, unspecified
CPT/HCPCS: 99283

== ENCOUNTER 2018-07-10 07:24 | Outpatient (CLI) | payer MEDICARE, MEDICAID ==
[2018-07-10] MEDS ORDERED: Iopamidol 370 76% 100 ML VIAL ONE (10:12)
--- NOTE | 2018-07-10 11:50 | CT ---
CT ABDOMEN WITH CONTRAST: CT PELVIS WITH CONTRAST: HISTORY: Diverticulitis. Right-sided pain x2 weeks. Rectal bleeding. COMPARISON: None. FINDINGS: ABDOMEN: There is a 2 mm nodule in the right lower lobe, of no significance. Heart size is normal. No pericardial effusion. The ascending thoracic aorta and abdominal aorta hav e an overall normal caliber. There is extensive calcified plaque in both renal artery ostia. There is symmetric attenuation of the psoas muscles. Surgically absent gallbladder. Portal vein is patent. The liver, spleen, pancreas, and adrenal glands have appropriate attenuation and enhancement. Nonspecific gastrohepatic lymph node, measuring 7 mm in craniocaudal dimension. Second gastrohepatic lymph node, measuring 1 cm in craniocaudal dimension is noted and is also nonspecific. No retrocrural or periportal lymphadenopathy. There is symmetric enhancement of the kidneys. Bilaterally, no obstructive uropathy. Note is made of a small hiatal hernia. The gastric mucosa, the duodenum, and multiple normal caliber small bowel loops are identified. The ileocecal junction is normal. Scattered fecal material and c ontrast in a nondistended, nondilated colon. No evidence of colonic obstruction. A moderate amount of fecal material is noted. Correlate for constipation. There is no evidence of diverticulosis or d iverticulitis. A normal caliber appendix is identified. No mesenteric mass, lymphadenopathy, free air, or free fluid. PELVIS: Unremarkable urinary bladder. No pelvic mass, lymphadenopathy, free air, or free fluid. Hy sterectomy changes are noted. No lytic or blastic lesions in the osseous structures. IMPRESSION: 1. Copious amount of fecal material. Correlate for constipation. 2. No evidence of bowel obstruction. Normal caliber appendix. 3. No evidence of diverticulosis or diverticulitis. POS: [facility]
== END 2018-07-10 07:25 | disposition home or self-care (01) ==
LOC: CT 07:24
PROVIDERS: ATTEND Student in an Organized Health Care Education/Training Program
DX: K57.92 Diverticulitis of intestine, part unspecified, without perforation or abscess without bleeding (principal); K62.5 Hemorrhage of anus and rectum; R19.5 Other fecal abnormalities
CPT/HCPCS: 74177; 82565

== ENCOUNTER 2018-07-18 12:58 | Emergency (ER) | payer MEDICARE, MEDICAID ==
[2018-07-18 14:28] LABS: ALT (SGPT) 15 U/L (8-55); AST (SGOT) 26 U/L (5-34); Albumin 3.8 g/dL (3.4-4.8); Alkaline Phosphatase 47 U/L (40-150); Anion Gap 9 mmol/L (10-20); Bilirubin, Total 0.2 mg/dL (0.2-1.2); CRP (Inflammatory) Less than 0.50 mg/dL (= or < 0.5); Calc. Creatinine Clearance 0 mL/min (70-130); Calcium 9.2 mg/dL (7.8-10.44); Carbon Dioxide 25 mmol/L (23-31); Chloride 108 mmol/L (98-107); Estimated GFR-MDRD 84; Globulin 3.5 g/dL (2.4-3.5); Glucose 89 mg/dL (80-115); Potassium 3.4 mmol/L (3.5-5.1); Protein, Total 7.3 g/dL (6.0-8.3); Sodium 139 mmol/L (136-145)
[2018-07-18 14:34] LABS: #Lymphocytes 0.6 thou/uL (1.20-3.40); #Monocytes 0.2 thou/uL (0.11-0.59); #Neutrophils 0.9 thou/uL (1.40-6.50); %Eosinophils 1.7 % (0.0-10.0); %Lymphocytes 35.3 % (21.0-51.0); %Monocytes 11.3 % (0.0-10.0); %Neutrophils 51.6 % (42.0-75.0); Eosinophils 1 % (0-10); Hemoglobin 10.2 g/dL (12.0-16.0); Hypochromia SLIGHT = 6-15 cells (100X) (0-5/hpf); Lymphocytes 30 % (21-51); MDiff Complete? YES; Mean Corpuscular HGB CONC 31.6 g/dL (32.0-36.0); Mean Corpuscular Hemoglobin 24.9 pg (27.0-31.0); Mean Corpuscular Volume 78.7 fL (78.0-98.0); Mean Platelet Volume 9.2 fL (7.4-10.4); Microcytosis SLIGHT = 6-15 cells (100X) (0-5/hpf); Monocytes 9 % (0-10); Neutrophil 59 % (42-75); PLT Morphology Comment Appears Adequate; Platelet Count 206 thou/uL (130-400); RBC Distribution Width 14.3 % (11.5-14.5); White Blood Cell (WBC) Count 1.7 thou/uL (4.8-10.8)
[2018-07-18 15:01] LABS: BUN (Urea Nitrogen) 7 mg/dL (9.8-20.1)
[2018-07-18] MEDS ORDERED: Dexamethasone 4 mg/ml Vial ONE ×2 (15:46→15:48)
== END 2018-07-18 15:53 | disposition home or self-care (01) ==
LOC: ERS 12:58
DX: L95.9 Vasculitis limited to the skin, unspecified (principal); I48.91 Unspecified atrial fibrillation; I10 Essential (primary) hypertension; M10.9 Gout, unspecified; J44.9 Chronic obstructive pulmonary disease, unspecified; Z79.899 Other long term (current) drug therapy; Z79.84 Long term (current) use of oral hypoglycemic drugs; Z79.01 Long term (current) use of anticoagulants
CPT/HCPCS: 36415; 80053; 85025; 85652; 86140; 99283; J1100

== ENCOUNTER 2018-08-13 11:41 | Inpatient (IN) | payer MEDICARE, MEDICAID ==
[2018-08-13 13:05] LABS: #Lymphocytes 0.8 thou/uL (1.20-3.40); #Monocytes 0.2 thou/uL (0.11-0.59); #Neutrophils 1.4 thou/uL (1.40-6.50); %Basophils 0.3 % (0.0-1.0); %Eosinophils 1.4 % (0.0-10.0); %Lymphocytes 31.3 % (21.0-51.0); %Monocytes 8.5 % (0.0-10.0); %Neutrophils 58.4 % (42.0-75.0); Hemoglobin 10.4 g/dL (12.0-16.0); Mean Corpuscular HGB CONC 31.6 g/dL (32.0-36.0); Mean Corpuscular Hemoglobin 24.9 pg (27.0-31.0); Mean Corpuscular Volume 78.7 fL (78.0-98.0); Mean Platelet Volume 9.6 fL (7.4-10.4); Platelet Count 196 thou/uL (130-400); RBC Distribution Width 14.4 % (11.5-14.5); Red Blood Cell (RBC) Count 4.18 mill/uL (4.20-5.40); White Blood Cell (WBC) Count 2.5 thou/uL (4.8-10.8)
[2018-08-13 13:34] LABS: ALT (SGPT) 8 U/L (8-55); AST (SGOT) 16 U/L (5-34); Albumin 4.3 g/dL (3.4-4.8); Alkaline Phosphatase 57 U/L (40-150); Anion Gap 12 mmol/L (10-20); BUN (Urea Nitrogen) 12 mg/dL (9.8-20.1); Bilirubin, Total 0.3 mg/dL (0.2-1.2); Calc. Creatinine Clearance 0 mL/min (70-130); Calcium 9.6 mg/dL (7.8-10.44); Carbon Dioxide 23 mmol/L (23-31); Chloride 106 mmol/L (98-107); Estimated GFR-MDRD 81; Globulin 4.1 g/dL (2.4-3.5); Glucose 90 mg/dL (80-115); Potassium 3.4 mmol/L (3.5-5.1); Protein, Total 8.4 g/dL (6.0-8.3); Sodium 138 mmol/L (136-145)
--- NOTE | 2018-08-13 15:51 | PDOC.FPRHP ---
- History of Present Illness Chief Complaint: Cellulitis History of Present Illness: Ms Cadena is a 68yo female with pmh of DMII, HTN, COPD, Afib presents with left lower leg cellulitis failed outpatient treatment with clindamycin. Pt had a biopsy in the area of cellulitis early this month. She reports having surrounding erythema the size of a tamir on . At that time she presented to [facility] and saw Dr Chavarria who prescribed Clindamycin. She reports picking her rx up and taking it as directed but has had increasing redness, swelling and pain. Denies discharge from biopsy site. She reports limited ROM. Reports having multiple skin infections in the past, all of which have required admisison for IV antibiotics. She is unsure of what bacteria caused the infection in past. Denies fevers, chills, n/v/d. ED Course: 1g Vancomycin, 1L NS, Toradol 30mg - Allergies/Adverse Reactions Allergies Allergy/AdvReac Type Severity Reaction Status Date / Time azithromycin [From Zithromax] Allergy Verified 11/22/17 19:42 erythromycin base Allergy Verified 11/22/17 19:42 hydralazine Allergy Verified 11/22/17 19:42 hydrochlorothiazide Allergy Verified 11/22/17 19:42 levofloxacin [From Levaquin] Allergy Verified 11/22/17 19:42 Penicillins Allergy Verified 11/22/17 19:42 Quinolones Allergy Verified 11/22/17 19:42 Sulfa (Sulfonamide Allergy Verified 11/22/17 19:42 Antibiotics) Thiazides Allergy Verified 11/22/17 19:42 ibuprofen AdvReac Mild Verified 11/22/17 19:42 - Home Medications Medication Instructions Recorded Confirmed Type Budesonide-Formoterol [Symbicort 1 puff INH BID 03/27/16 08/13/18 History 160-4.5] Esomeprazole Magnesium [Nexium 40 mg PO DAILY 03/27/16 08/13/18 History 24Hr] Levalbuterol Tartrate [Xopenex HFA 1 puff INH Q4HR PRN 03/27/16 08/13/18 History Inhaler] Levothyroxine Sodium [Synthroid] 25 mcg PO DAILY 03/27/16 08/13/18 History Metoprolol Succinate [Toprol XL] 50 mg PO DAILY 03/27/16 08/13/18 History Albuterol Sulfate [Proair 90 mcg IH PRN PRN 11/22/17 08/13/18 History Respiclick] Brimonidine Tartrate [Alphagan P 1 drop R EYE BID 11/22/17 08/13/18 History 0.1% Ophth Soln] Fluticasone Propionate [Flonase 1 spray EA NARE DAILY 11/22/17 08/13/18 History Nasal Aurora] Rivaroxaban [Xarelto] 20 mg PO DAILY 11/22/17 08/13/18 History metFORMIN [Glucophage] 1 tab PO BID 11/22/17 08/13/18 History NIFEdipine [Procardia XL] 1 tab PO DAILY 01/19/18 08/13/18 History Rosuvastatin [Crestor] 10 mg PO HS 01/19/18 08/13/18 History Ascorbic Acid [Vitamin C] 500 mg PO BID-WM #60 tab 01/21/18 08/13/18 Rx Ferrous Sulfate [Feosol] 325 mg PO BID-WM #60 tab 01/21/18 08/13/18 Rx traMADol HCl [Tramadol HCl] 50 mg PO Q6H PRN 08/13/18 08/13/18 History traMADol HCl [Tramadol HCl] 100 mg PO Q6H PRN 08/13/18 08/13/18 History - History PMHx: Hypothyroidism, Microcytic anemia, chronic venous insufficiency, atrial fibrillation, hep C, T2DM, HTN, COPD, glaucoma, peripheral neuropathy, chronic low back pain PSHx: knee surgery, eye surgery X2, DAWIT-BSO, cholecystectomy, internal hemorrhoid resection FHx: DM, HTN Social: Single, lives alone, denies drug use - Review of Systems General: denies: fever/chills, weight/appetite/sleep changes, fatigue Eyes: denies: eye pain, vision changes ENT: reports: rhinorrhea. denies: nasal congestion Respiratory: reports: cough. denies: congestion, shortness of breath Cardiovascular: reports: edema. denies: chest pain Gastrointestinal: denies: nausea, vomiting, diarrhea, constipation, abdominal pain Genitourinary: denies: incontinence, dysuria Skin: reports: rashes, lesions Musculoskeletal: reports: pain, tenderness, stiffness, swelling, arthritis/ arthralgias Neurological: denies: numbness, weakness - Vital signs BP: 126/85 HR: 82 RR: 18 Tmax: 98.8 Pox: 97% on RA Wt: 68.95kg - Physical Exam Constitutional: NAD, awake, alert and oriented, well developed HEENT: normocephalic and atraumatic, MMM, oropharynx clear Neck: supple, trachea midline Heart: RRR, no murmurs/rubs/gallops Lungs: CTAB, no respiratory distress, good air movement, no wheezing Abdomen: soft, non-tender, bowel sounds present Musculoskeletal: normal tone -Musculoskeletal: Left ankle swelling -Skin: Healing punch biopsy site on lateral aspect of Left lower leg. Large area of erythema and warmth surrounding lesion with no induration or fluctuance. Area of demarcation done by ED physician Psychiatric: normal mood and affect, good judgment and insight, intact recent and remote memory FMR H&P: Results - Labs Result Diagrams: 08/13/18 12:47 08/13/18 12:47 Lab results: WBC 2.5 thou/uL (4.8-10.8) L 08/13/18 12:47 Hgb 10.4 g/dL (12.0-16.0) L 08/13/18 12:47 Hct 32.9 % (36.0-47.0) L 08/13/18 12:47 MCV 78.7 fL (78.0-98.0) 08/13/18 12:47 Plt Count 196 thou/uL (130-400) 08/13/18 12:47 Neutrophils % 58.4 % (42.0-75.0) 08/13/18 12:47 ESR Westergren 72 mm/hr (Less than 30) 08/13/18 15:01 Sodium 138 mmol/L (136-145) 08/13/18 12:47 Potassium 3.4 mmol/L (3.5-5.1) L 08/13/18 12:47 Chloride 106 mmol/L (98-107) 08/13/18 12:47 Carbon Dioxide 23 mmol/L (23-31) 08/13/18 12:47 BUN 12 mg/dL (9.8-20.1) 08/13/18 12:47 Creatinine 0.85 mg/dL (0.6-1.1) 08/13/18 12:47 Glucose 90 mg/dL (80-115) 08/13/18 12:47 Lactic Acid 1.8 mmol/L (0.5-2.2) 08/13/18 12:47 Calcium 9.6 mg/dL (7.8-10.44) 08/13/18 12:47 Total Bilirubin 0.3 mg/dL (0.2-1.2) 08/13/18 12:47 AST 16 U/L (5-34) 08/13/18 12:47 ALT 8 U/L (8-55) 08/13/18 12:47 Alkaline Phosphatase 57 U/L (40-150) 08/13/18 12:47 C-Reactive Protein 0.52 mg/dL (= or < 0.5) H 08/13/18 15:01 Serum Total Protein 8.4 g/dL (6.0-8.3) H 08/13/18 12:47 Albumin 4.3 g/dL (3.4-4.8) 08/13/18 12:47 - Radiology Interpretation Other Status: report reviewed by hi FMR H&P: A/P - Problem List (1) Cellulitis and abscess of left leg Current Visit: Yes Status: Acute Code(s): L03.116 - CELLULITIS OF LEFT LOWER LIMB; L02.416 - CUTANEOUS ABSCESS OF LEFT LOWER LIMB (2) COPD (chronic obstructive pulmonary disease) Current Visit: No Status: Chronic (3) Chronic a-fib Current Visit: No Status: Chronic Code(s): I48.2 - CHRONIC ATRIAL FIBRILLATION (4) Diabetes type 2, controlled Current Visit: No Status: Chronic Code(s): E11.9 - TYPE 2 DIABETES MELLITUS WITHOUT COMPLICATIONS Qualifiers: Diabetes mellitus fci insulin use: without fci use Diabetes mellitus complication status: without complication Qualified Code(s): E11.9 - Type 2 diabetes mellitus without complications (5) GERD (gastroesophageal reflux disease) Current Visit: No Status: Chronic Code(s): K21.9 - GASTRO-ESOPHAGEAL REFLUX DISEASE WITHOUT ESOPHAGITIS Qualifiers: Esophagitis presence: with esophagitis Qualified Code(s): K21.0 - Gastro- esophageal reflux disease with esophagitis (6) Glaucoma Current Visit: No Status: Chronic Code(s): H40.9 - UNSPECIFIED GLAUCOMA Qualifiers: Glaucoma type: unspecified type Laterality: left (7) HTN (hypertension) Current Visit: No Status: Chronic Code(s): I10 - ESSENTIAL (PRIMARY) HYPERTENSION Qualifiers: Hypertension type: essential hypertension Qualified Code(s): I10 - Essential (primary) hypertension (8) Hypothyroidism Current Visit: No Status: Chronic Code(s): E03.9 - HYPOTHYROIDISM, UNSPECIFIED Qualifiers: Hypothyroidism type: unspecified Qualified Code(s): E03.9 - Hypothyroidism , unspecified (9) Obesity (BMI 30.0-34.9) Current Visit: No Status: Chronic Code(s): E66.9 - OBESITY, UNSPECIFIED - Plan LLE cellulitis - Failed outpt therapy with clindamycin - s/p 1L NS and Vancomycin in ED - Xray of LLE: Diffuse soft tissue swelling - Continue vancomycin - Blood cxs pending - Admit to medical Hx of Syphilis - Syphilis + at previous admission - Unclear if pt was treated, will need to follow up with pt if she was treated. If not will need to initiate treatment. JED positive - Elevated CRP/ESR - Has been referred to rheumatology outpt HTN - Continue home meds Afib - Continue home meds - Continue Xarelto T2DM - Continue metformin - Mild SSI - Hypoglycemic protocol - ACHS accuchecks COPD - Continue home meds Hypothyroidism - continue home meds Glaucoma - Continue home meds Chronic low back pain - Continue home meds Code Status: FULL DVT ppx: Xarelto FMR H&P: Upper Level - Pertinent history 68 y/o F with PMHx a-fib, HTN, DM2 presents due to LLE pain and redness. She reports that a few weeks ago she developed a rash that was small red spots all over both of her legs up to the thighs. 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 She reports that the rash went away after the got a dose of steroids at the hospital. She then reports that she started developing a small nickel sized area of redness surrounding the lower biopsy. This continued to get worse and spread starting on . She was seen on and prescribed Clindamycin, which she has been taking as prescribed. She states that it kept getting worse so she decided to come it. She describes it as painful, but has not been leaking any fluid. She denies any F/C. She reports a h/o multiple episodes of cellulitis requiring IV abx. - Pertinent findings Vitals: BP 128/87, HR 78, RR 18, Temp 99.6, O2 98% on RA PE: Gen - alert, oriented, NAD CV - RRR, no murmurs Resp - CTAB, no wheezes Ext - swelling in L ankle with decreased ROM due to swelling Skin - 2 healing punch biopsy sites on L guthrie and lateral aspect of LE. Large area of erythema and warmth surrounding the lower lesion with no induration or fluctuance. Significant results: ESR - 72, CRP 0.52 Tib-Fib x-ray result pending Prior labs reviewed and pt found to have syphilis during last admission. Not known if she was treated. JED positive. - Plan Date/Time: 08/13/181550 I, Aditi Sauer MD, PGY-2, have evaluated this patient and agree with findings/ plan as outlined by electrical intern resident. Pertinent changes/additions are listed here. 68 y/o F with PMHx a-fib, HTN, DM2 presents due to LLE cellulitis. 1. LLE cellulitis, failed outpatient therapy with clindamycin. Will admit to medical and start pt on vancomycin. Will f/u on x-ray results. Pt has elevated CRP and ESR, could be related to recent vasculitis, but pt also has positive JED. Blood cultures pending. 2. HTN - continue home meds 3. Paroxysmal A fib - Continue home meds 4. T2DM - continue metformin, accuchecks ACHS, CC diet 5. COPD - Continue home meds 6. Hypothyroidism - continue home meds 7. h/o Syphilis - found to be positive for syphilis during prior admission. No documentation of treatment for this. Will discuss with patient and if no [facility] will start treatment for latent syphilis. 8. JED positive - pt has outpatient rheumatology referral placed for this. Attending Addendum - Attending Addendum Date/Time: 08/13/181918 I personally evaluated the patient and discussed the management with Dr. Batista I agree with the History, Examination, Assessment and Plan documented above with any addition or exceptions noted below- 68 yo female with h/o DM, COPD, chronic a-fib, HTN who presented with c/o left LE pain, swelling, and redness. Patient had 2 punch biopsies performed on left LE due to a rash that had occurred. Areas were healing but last developed nickel sized area of redness around lower biopsy site. Seen at office and diagnosed with cellulitis and started on clindamycin. Patient reports that she has been taking the abx as prescribed but area has increased in size and become more painful. Denies any fever/chills. PMH/PSH/All/Meds reviewed and agree with resident's documentation. Afebrile VSS. Exam repeated by me and agree with resident's findings. Labs: WBC= 2.5, H/H=10.4/32.9, Qbg=096, Na= 138, K=3.4, Ez=018, CO2=23 , BUN/Cr= 12/0.85, Gluc=90, AST/ALT=16/8. A/P: 1) Cellulitis failed outpatient therapy- Continue vanc. Area of redness marked, monitor for improvement. 2) DM- continue home meds and accuchecks. 3) Rash- resolved but biopsy showed leukocytoclastic vasculitis; patient also has chronic leukopenia, elevated ESR and positive JED- suspect autoimmune process; has been referrred to rheumatology as outpatient.
[2018-08-13] MEDS ORDERED: Ketorolac Tromethamine 30 MG/ML VIAL ONE (15:54)
--- NOTE | 2018-08-13 17:04 | RAD ---
LEFT TIBIA AND FIBULA 2 VIEWS: Date: 08/13/18 HISTORY: 68-year-old female with left leg erythema. FINDINGS: There is diffuse soft tissue swelling of the lower leg, somewhat more marked laterally. No fracture, dislocation, or other significant acute osseous abnormality. Degenerative changes of the knee joint a nd ankle joint. IMPRESSION: Diffuse soft tissue swelling. No other significant abnormality. POS: [facility]
[2018-08-13] MEDS ORDERED: HumaLOG 300 UNITS/3 ML VIAL SC PRN (17:12)
[2018-08-13] MEDS ORDERED: Ondansetron ODT 4 MG TAB PO PRN (17:12)
[2018-08-13] MEDS ORDERED: Dextrose 5% in Water 1,000 ML IV PRN (17:12)
[2018-08-13] MEDS ORDERED: Dextrose 50% Abboject 50 ML SYRINGE SLOW IVP PRN (17:12)
[2018-08-13 18:04] VITALS: BMI 23.8
[2018-08-13] MEDS ORDERED: traMADol HCl 50 MG TAB PO PRN (18:22)
[2018-08-13] MEDS ORDERED: PROVENTIL INHALER 6.7 G (200 INHALATIONS) INH PRN (18:45)
[2018-08-13] MEDS: Mometasone/Formoterol 120 PUFF INHALER INH SCH (19:54)
[2018-08-13] MEDS: Rivaroxaban 10 MG TAB PO SCH (21:00)
[2018-08-13] MEDS: Brimonidine Tartrate 0.2% Ophth Soln 5 ml Bottle R EYE SCH (21:00)
[2018-08-13] MEDS: Rosuvastatin 10 MG TAB PO SCH (21:27)
[2018-08-13] MEDS: metFORMIN 500 MG TAB PO SCH (21:27)
[2018-08-13] MEDS ORDERED: Ketorolac Tromethamine 30 MG/ML VIAL IVP PRN (22:18)
[2018-08-14] MEDS: Acetaminophen 325 MG TAB PO PRN ×2 (01:23→15:57)
[2018-08-14] MEDS ORDERED: Vancomycin HCl 1 GM in Premix Bag 1 BAG IVPB SCH (03:00)
[2018-08-14 04:55] LABS: #Eosinphils 0.1 thou/uL (0.0-0.7); #Lymphocytes 0.2 thou/uL (1.20-3.40); #Monocytes 0.3 thou/uL (0.11-0.59); #Neutrophils 2.9 thou/uL (1.40-6.50); %Basophils 0.2 % (0.0-1.0); %Eosinophils 2.8 % (0.0-10.0); %Lymphocytes 5.6 % (21.0-51.0); %Monocytes 7.2 % (0.0-10.0); %Neutrophils 84.2 % (42.0-75.0); Hemoglobin 9.6 g/dL (12.0-16.0); Mean Corpuscular HGB CONC 32.1 g/dL (32.0-36.0); Mean Corpuscular Hemoglobin 25.2 pg (27.0-31.0); Mean Corpuscular Volume 78.4 fL (78.0-98.0); Platelet Count 162 thou/uL (130-400); RBC Distribution Width 14.3 % (11.5-14.5); Red Blood Cell (RBC) Count 3.81 mill/uL (4.20-5.40); White Blood Cell (WBC) Count 3.5 thou/uL (4.8-10.8)
[2018-08-14 05:16] LABS: Anion Gap 9 mmol/L (10-20); BUN (Urea Nitrogen) 13 mg/dL (9.8-20.1); Calc. Creatinine Clearance 73 mL/min (70-130); Calcium 8.7 mg/dL (7.8-10.44); Carbon Dioxide 22 mmol/L (23-31); Chloride 105 mmol/L (98-107); Estimated GFR-MDRD 84; Glucose 124 mg/dL (80-115); Potassium 3.4 mmol/L (3.5-5.1); Sodium 133 mmol/L (136-145)
--- NOTE | 2018-08-14 07:10 | PDOC.FM ---
- Subjective Subjective: Patient reports some fever/chills overnight. She reports pain in her LLE, but that the swelling and redness have improved. She denies N/V. - Objective MAR Reviewed: Yes Vital Signs & Weight: Vital Signs (12 hours) Temp Pulse Resp BP BP Pulse Ox 08/14/18 04:02 99.5 F 86 18 99/56 L 99 08/14/18 00:56 101.5 F H 106 H 18 118/70 96 08/13/18 20:00 100 08/13/18 19:54 90 18 98 08/13/18 19:12 98.4 F 82 18 121/77 100 Weight Weight 68.946 kg Result Diagrams: 08/14/18 04:44 08/14/18 04:44 Phys Exam - Physical Examination Constitutional: NAD HEENT: moist MMs Respiratory: no wheezing, no rales, no rhonchi, clear to auscultation bilateral Cardiovascular: RRR, no significant murmur, no rub Gastrointestinal: soft, non-tender, no distention, positive bowel sounds Musculoskeletal: pulses present Edema in L ankle with improved ROM Psychiatric: normal affect, A&O x 3 Skin: normal turgor, cap refill <2 seconds Deviation from normal: 2 healing biopsy sites on LLE, erythema on LLE improved, but still warmth -: No induration or fluctuance Dx/Plan (1) Left leg cellulitis Code(s): L03.116 - CELLULITIS OF LEFT LOWER LIMB Status: Acute (2) H/O syphilis Code(s): Z86.19 - PERSONAL HISTORY OF OTHER INFECTIOUS AND PARASITIC DISEASES Status: Acute (3) JED positive Code(s): R76.8 - OTHER SPECIFIED ABNORMAL IMMUNOLOGICAL FINDINGS IN SERUM Status: Acute (4) Paroxysmal atrial fibrillation Code(s): I48.0 - PAROXYSMAL ATRIAL FIBRILLATION Status: Acute (5) COPD (chronic obstructive pulmonary disease) Status: Chronic (6) Diabetes type 2, controlled Code(s): E11.9 - TYPE 2 DIABETES MELLITUS WITHOUT COMPLICATIONS Status: Chronic Qualifiers: Diabetes mellitus manager long term care insulin use: without fdc use Diabetes mellitus complication status: without complication Qualified Code(s): E11.9 - Type 2 diabetes mellitus without complications (7) GERD (gastroesophageal reflux disease) Code(s): K21.9 - GASTRO-ESOPHAGEAL REFLUX DISEASE WITHOUT ESOPHAGITIS Status: Chronic Qualifiers: Esophagitis presence: with esophagitis Qualified Code(s): K21.0 - Gastro- esophageal reflux disease with esophagitis (8) HTN (hypertension) Code(s): I10 - ESSENTIAL (PRIMARY) HYPERTENSION Status: Chronic Qualifiers: Hypertension type: essential hypertension Qualified Code(s): I10 - Essential (primary) hypertension (9) Hypothyroidism Code(s): E03.9 - HYPOTHYROIDISM, UNSPECIFIED Status: Chronic Qualifiers: Hypothyroidism type: unspecified Qualified Code(s): E03.9 - Hypothyroidism , unspecified - Plan Plan: LLE cellulitis Failed outpt therapy with clindamycin. X-ray showed diffuse soft tissue swelling. Pt had recent biopsy of that site showing leukocytoclastic vasculitis , but pt reports that rash has resolved. Pt fevered overnight. - Continue vancomycin - Blood cxs pending Hx of Syphilis Pt reports being treated for this in the past, several years ago when first diagnosed. JED positive Elevated CRP/ESR - Has been referred to rheumatology outpt, but has not been able to see them yet due to her insurance. HTN - Continue home meds Paroxysmal A-fib - Continue metoprolol and xarelto Diabetes Mellitus, Type 2 - Continue metformin - Mild SSI - Hypoglycemic protocol - ACHS accuchecks COPD No signs of current exacerbation - Continue home meds Hypothyroidism - continue synthroid
[2018-08-14] MEDS: Levothyroxine Sodium 25 MCG TAB PO SCH (07:27)
[2018-08-14] MEDS: Mometasone/Formoterol 120 PUFF INHALER INH SCH ×2 (08:09→19:44)
[2018-08-14] MEDS: NIFEdipine XL 60 MG TAB PO SCH (08:42)
[2018-08-14] MEDS: Ferrous Sulfate 325 MG TAB PO SCH ×2 (08:43→17:38)
[2018-08-14] MEDS: metFORMIN 500 MG TAB PO SCH ×2 (08:43→21:02)
[2018-08-14] MEDS: traMADol HCl 50 MG TAB PO PRN ×2 (08:47→19:04)
[2018-08-14] MEDS ORDERED: Levothyroxine Sodium 25 MCG TAB PO SCH (09:00)
[2018-08-14] MEDS: Fluticasone Propionate Nasal Spray 16 gm Bottle NASAL SCH (12:20)
[2018-08-14] MEDS: Brimonidine Tartrate 0.2% Ophth Soln 5 ml Bottle R EYE SCH ×2 (12:20→21:02)
[2018-08-14] MEDS: Cephalexin 250 MG CAP PO SCH ×3 (14:23→23:40)
[2018-08-14] MEDS: Rosuvastatin 10 MG TAB PO SCH (21:04)
[2018-08-14] MEDS: Rivaroxaban 10 MG TAB PO SCH (21:04)
[2018-08-15] MEDS: Cephalexin 250 MG CAP PO SCH ×2 (05:45→11:38)
[2018-08-15] MEDS: Levothyroxine Sodium 25 MCG TAB PO SCH (05:45)
[2018-08-15 07:11] VITALS: BP 114/65; TEMP 98.8
--- NOTE | 2018-08-15 08:47 | PDOC.FM ---
- Subjective Subjective: The patient reports that her leg pain has improved. She reports the swelling has decreased. She denies any further fever/chills. She denies N/V and is tolerating PO well. - Objective MAR Reviewed: Yes Vital Signs & Weight: Vital Signs (12 hours) Temp Pulse Resp BP Pulse Ox 08/15/18 07:00 98.8 F 79 16 114/65 96 08/15/18 03:00 99.5 F 08/14/18 23:00 98.8 F Weight Weight 68.946 kg Result Diagrams: 08/14/18 04:44 08/14/18 04:44 <Aditi Sauer - Last Filed: 08/15/18 08:42> - Objective Vital Signs & Weight: Vital Signs (12 hours) Temp Pulse Resp BP Pulse Ox 08/15/18 09:20 69 08/15/18 09:07 69 16 96 08/15/18 07:00 98.8 F 79 16 114/65 96 08/15/18 03:00 99.5 F Weight Weight 68.946 kg Result Diagrams: 08/14/18 04:44 08/14/18 04:44 <Ernesto Rodriguez - Last Filed: 08/15/18 11:23> Phys Exam - Physical Examination Constitutional: NAD HEENT: moist MMs, sclera anicteric Respiratory: no wheezing, no rales, no rhonchi, clear to auscultation bilateral Cardiovascular: RRR, no significant murmur, no rub Gastrointestinal: soft, non-tender, no distention, positive bowel sounds Musculoskeletal: no edema, pulses present Psychiatric: normal affect, A&O x 3 Deviation from normal: healing biopsy sites on LLE, erythema resolved, residual mild tenderness <Aditi Sauer - Last Filed: 08/15/18 08:42> Dx/Plan (1) Left leg cellulitis Code(s): L03.116 - CELLULITIS OF LEFT LOWER LIMB Status: Acute (2) H/O syphilis Code(s): Z86.19 - PERSONAL HISTORY OF OTHER INFECTIOUS AND PARASITIC DISEASES Status: Acute (3) JED positive Code(s): R76.8 - OTHER SPECIFIED ABNORMAL IMMUNOLOGICAL FINDINGS IN SERUM Status: Acute (4) Paroxysmal atrial fibrillation Code(s): I48.0 - PAROXYSMAL ATRIAL FIBRILLATION Status: Acute (5) COPD (chronic obstructive pulmonary disease) Status: Chronic (6) Diabetes type 2, controlled Code(s): E11.9 - TYPE 2 DIABETES MELLITUS WITHOUT COMPLICATIONS Status: Chronic Qualifiers: Diabetes mellitus termite control service representative insulin use: without longterm use Diabetes mellitus complication status: without complication Qualified Code(s): E11.9 - Type 2 diabetes mellitus without complications (7) GERD (gastroesophageal reflux disease) Code(s): K21.9 - GASTRO-ESOPHAGEAL REFLUX DISEASE WITHOUT ESOPHAGITIS Status: Chronic Qualifiers: Esophagitis presence: with esophagitis Qualified Code(s): K21.0 - Gastro- esophageal reflux disease with esophagitis (8) HTN (hypertension) Code(s): I10 - ESSENTIAL (PRIMARY) HYPERTENSION Status: Chronic Qualifiers: Hypertension type: essential hypertension Qualified Code(s): I10 - Essential (primary) hypertension (9) Hypothyroidism Code(s): E03.9 - HYPOTHYROIDISM, UNSPECIFIED Status: Chronic Qualifiers: Hypothyroidism type: unspecified Qualified Code(s): E03.9 - Hypothyroidism , unspecified - Plan Plan: LLE cellulitis Failed outpt therapy with clindamycin. X-ray showed diffuse soft tissue swelling. Pt had recent biopsy of that site showing leukocytoclastic vasculitis , but pt reports that rash has resolved. - Switched to Keflex yesterday and is still improving. Will d/c home today on keflex - Blood cxs NG Hx of Syphilis Pt reports being treated for this in the past, several years ago when first diagnosed. JED positive Elevated CRP/ESR - Has been referred to rheumatology outpt, but has not been able to see them yet due to her insurance. HTN - Continue home meds Paroxysmal A-fib - Continue metoprolol and xarelto Diabetes Mellitus, Type 2 - Continue metformin - Mild SSI - Hypoglycemic protocol - ACHS accuchecks COPD No signs of current exacerbation - Continue home meds Hypothyroidism - continue synthroid Dispo: d/c home today on keflex <Aditi Sauer - Last Filed: 08/15/18 08:42> Attending Addendum - Attending Addendum Date/Time: 08/15/18 1120 I personally evaluated the patient and discussed the management with Dr. Sauer. I agree with the History, Examination, Assessment and Plan documented above with any addition or exceptions noted below. Single febrile episode yesterday. None since.c/o's itching nannette no hives, controlled with Benadryl. OK to d/c home with Keflex and Benadryl. <Ernesto Rodriguez - Last Filed: 08/15/18 11:23>
[2018-08-15] MEDS: Mometasone/Formoterol 120 PUFF INHALER INH SCH (09:07)
[2018-08-15] MEDS: NIFEdipine XL 60 MG TAB PO SCH (09:20)
[2018-08-15] MEDS: metFORMIN 500 MG TAB PO SCH (09:20)
[2018-08-15] MEDS: traMADol HCl 50 MG TAB PO PRN ×2 (09:20→15:29)
[2018-08-15] MEDS: Ferrous Sulfate 325 MG TAB PO SCH (09:21)
[2018-08-15] MEDS: Brimonidine Tartrate 0.2% Ophth Soln 5 ml Bottle R EYE SCH (09:22)
[2018-08-15] MEDS: Fluticasone Propionate Nasal Spray 16 gm Bottle NASAL SCH (09:23)
[2018-08-15] MEDS ORDERED: diphenhydrAMINE 25 MG CAP PO PRN (11:19)
--- NOTE | 2018-08-16 01:17 | DIS-2 ---
DATE OF ADMISSION: 08/13/2018 DATE OF DISCHARGE: 08/15/2018 ADMITTING RESIDENT: Yesi Batista MD ADMITTING ATTENDING: Lizette Newman M.D. DISCHARGE ATTENDING: Ernesto Rodriguez M.D. CONSULTATIONS: None. PROCEDURES: None. PRIMARY DIAGNOSIS: Left lower extremity cellulitis, failed outpatient treatment. SECONDARY DIAGNOSES: 1. Hypertension. 2. Paroxysmal atrial fibrillation. 3. Diabetes type 2. 4. Chronic obstructive pulmonary disease. 5. Hypothyroidism. 6. History of syphilis. 7. JED positive. DISCHARGE MEDICATIONS: 1. Metoprolol succinate 50 mg p.o. daily. 2. Nifedipine 60 mg 1 tab p.o. daily. 3. Tramadol 50-100 mg q.6 hours p.r.n. pain. 4. Flonase 1 spray in each naris daily. 5. Ferrous sulfate 325 mg p.o. b.i.d. with meals. 6. Esomeprazole 40 mg p.o. daily. 7. Symbicort 1 puff inhaled b.i.d. 8. Simvastatin 10 mg p.o. at bedtime. 9. Xarelto 20 mg p.o. daily. 10. Albuterol sulfate 90 mcg inhaled p.r.n. shortness of breath or wheezing. 11. Metformin 500 mg p.o. daily. 12. Synthroid 25 mcg p.o. daily. 13. Xopenex HFA 18 grams 1 puff inhaled q.4h. p.r.n. shortness of breath or wheezing. 14. Benadryl 25 mg p.o. q.6 hours p.r.n. itching. 15. Keflex 500 mg p.o. q.6 hours for 5 days. DISCONTINUED MEDICATIONS: Clindamycin. HISTORY OF PRESENT ILLNESS AND HOSPITAL COURSE: This is a 68-year-old female who presented to the ER due to worsening left lower extremity, redness, pain. The patient had had a rash on bilateral lower extremities that her primary care physician biopsied in two different places. The biopsy resulted back as leukocytoclastic vasculitis. The patient had resolution of that rash; however, she developed erythema around the lower biopsy site on her left lower extremity that was about quarter size. The patient presented to the primary care physician, which treated with clindamycin initially. The rash then continued to spread and so the patient presented to the ER. The patient was initially treated with vancomycin and showed drastic improvement in her cellulitis. She was then switched over to cephalexin, continued to show improvement in both the redness, warmth and tenderness. The patient was discharged home on a 5-day course of Keflex. 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 DISPOSITION: Stable. DISCHARGE INSTRUCTIONS: 1. Location: Home. 2. Diet: Consistent carbohydrates. 3. Activity: As tolerated. 4. Follow up with Dr. Pepe at [facility] within 7 days. [place]
== END 2018-08-15 15:38 | disposition home or self-care (01) | DRG 638 ==
LOC: ERS 11:41 → ONC 17:09
PROVIDERS: ADMIT Student in an Organized Health Care Education/Training Program; ATTEND Student in an Organized Health Care Education/Training Program
DX: E11.628 Type 2 diabetes mellitus with other skin complications (principal); L03.116 Cellulitis of left lower limb; Z79.84 Long term (current) use of oral hypoglycemic drugs; I10 Essential (primary) hypertension; I48.0 Paroxysmal atrial fibrillation; J44.9 Chronic obstructive pulmonary disease, unspecified; E03.9 Hypothyroidism, unspecified; Z86.19 Personal history of other infectious and parasitic diseases; R76.8 Other specified abnormal immunological findings in serum; K21.0 Gastro-esophageal reflux disease with esophagitis; Z88.8 Allergy status to other drugs, medicaments and biological substances
CPT/HCPCS: 36415; 36416; 80048; 80053; 83605; 85025; 85652; 86140; 87040; 94664; J1885; J3370; Q0162

== ENCOUNTER 2018-08-25 18:23 | Emergency (ER) | payer MEDICARE, MEDICAID ==
[2018-08-25] MEDS ORDERED: HYDROcodone/Acetaminophen 5/325 mg Tablet ONE (18:40)
== END 2018-08-25 18:42 | disposition home or self-care (01) ==
LOC: ERS 18:23
DX: I77.6 Arteritis, unspecified (principal); L03.116 Cellulitis of left lower limb; I48.91 Unspecified atrial fibrillation; I10 Essential (primary) hypertension; M10.9 Gout, unspecified; M19.90 Unspecified osteoarthritis, unspecified site; J44.9 Chronic obstructive pulmonary disease, unspecified; Z79.01 Long term (current) use of anticoagulants; Z79.899 Other long term (current) drug therapy

== ENCOUNTER 2018-08-26 13:18 | Inpatient (IN) | payer MEDICARE, MEDICAID ==
[2018-08-26 14:38] LABS: #Lymphocytes 0.7 thou/uL (1.20-3.40); #Monocytes 0.1 thou/uL (0.11-0.59); #Neutrophils 1.6 thou/uL (1.40-6.50); %Basophils 1.6 % (0.0-1.0); %Eosinophils 1.8 % (0.0-10.0); %Lymphocytes 29.2 % (21.0-51.0); %Monocytes 4.8 % (0.0-10.0); %Neutrophils 62.6 % (42.0-75.0); Hemoglobin 10.5 g/dL (12.0-16.0); Mean Corpuscular HGB CONC 31.6 g/dL (32.0-36.0); Mean Corpuscular Hemoglobin 25.2 pg (27.0-31.0); Mean Corpuscular Volume 79.7 fL (78.0-98.0); Mean Platelet Volume 9.1 fL (7.4-10.4); Platelet Count 242 thou/uL (130-400); RBC Distribution Width 14.2 % (11.5-14.5); Red Blood Cell (RBC) Count 4.15 mill/uL (4.20-5.40); White Blood Cell (WBC) Count 2.5 thou/uL (4.8-10.8)
[2018-08-26 14:59] LABS: ALT (SGPT) 13 U/L (8-55); AST (SGOT) 22 U/L (5-34); Albumin 4.3 g/dL (3.4-4.8); Alkaline Phosphatase 61 U/L (40-150); Anion Gap 10 mmol/L (10-20); BUN (Urea Nitrogen) 11 mg/dL (9.8-20.1); Bilirubin, Total 0.3 mg/dL (0.2-1.2); Calc. Creatinine Clearance 0 mL/min (70-130); Calcium 9.5 mg/dL (7.8-10.44); Carbon Dioxide 25 mmol/L (23-31); Chloride 109 mmol/L (98-107); Estimated GFR-MDRD 89; Globulin 4.1 g/dL (2.4-3.5); Glucose 92 mg/dL (80-115); Potassium 3.3 mmol/L (3.5-5.1); Protein, Total 8.4 g/dL (6.0-8.3); Sodium 141 mmol/L (136-145)
--- NOTE | 2018-08-26 17:04 | PDOC.FPRHP ---
- History of Present Illness Chief Complaint: Leg redness History of Present Illness: Ms. Cadena presents as a direct admit from clinic for LLE pain and redness. She was admitted for similar symptoms in the past and had multiple reactions, DCd on keflex on 08/15. Symptoms reported to have gotten better and then returned, she returned to the ED yesterday and was discharged from there with antibiotics, she was not able to obtain them so returned to [facility] today and sent over for an elevated temperature and LLE infection continuing despite recent hospital stay and a long list of allergies. She denies any fever, chills , abdominal pain, chest pain or shortness of breath. ED Course: 1 dose vanc. CBC, CMP, LA - Allergies/Adverse Reactions Allergies Allergy/AdvReac Type Severity Reaction Status Date / Time azithromycin [From Zithromax] Allergy Verified 11/22/17 19:42 erythromycin base Allergy Verified 11/22/17 19:42 hydralazine Allergy Verified 11/22/17 19:42 hydrochlorothiazide Allergy Verified 11/22/17 19:42 levofloxacin [From Levaquin] Allergy Verified 11/22/17 19:42 Penicillins Allergy Verified 11/22/17 19:42 Quinolones Allergy Verified 11/22/17 19:42 Sulfa (Sulfonamide Allergy Verified 11/22/17 19:42 Antibiotics) Thiazides Allergy Verified 11/22/17 19:42 ibuprofen AdvReac Mild Verified 11/22/17 19:42 - Home Medications Medication Instructions Recorded Confirmed Type Budesonide-Formoterol [Symbicort 1 puff INH BID 03/27/16 08/26/18 History 160-4.5] Esomeprazole Magnesium [Nexium 40 mg PO DAILY 03/27/16 08/26/18 History 24Hr] Levalbuterol Tartrate [Xopenex HFA 1 puff INH Q4HR PRN 03/27/16 08/26/18 History Inhaler] Levothyroxine Sodium [Synthroid] 25 mcg PO DAILY 03/27/16 08/26/18 History Metoprolol Succinate [Toprol XL] 50 mg PO DAILY 03/27/16 08/26/18 History Brimonidine Tartrate [Alphagan P 1 drop R EYE BID 11/22/17 08/26/18 History 0.1% Ophth Soln] Fluticasone Propionate [Flonase 1 spray EA NARE DAILY 11/22/17 08/26/18 History Nasal [place]] Rivaroxaban [Xarelto] 20 mg PO DAILY 11/22/17 08/26/18 History NIFEdipine [Procardia XL] 1 tab PO DAILY 01/19/18 08/26/18 History Rosuvastatin [Crestor] 10 mg PO HS 01/19/18 08/26/18 History Ascorbic Acid [Vitamin C] 500 mg PO BID-WM #60 tab 01/21/18 08/26/18 Rx Ferrous Sulfate [Feosol] 325 mg PO BID-WM #60 tab 01/21/18 08/26/18 Rx traMADol HCl [Tramadol HCl] 50 mg PO Q6H PRN 08/13/18 08/26/18 History traMADol HCl [Tramadol HCl] 100 mg PO Q6H PRN 08/13/18 08/26/18 History diphenhydrAMINE [Benadryl] 25 mg PO Q6H PRN #30 cap 08/15/18 08/26/18 Rx metFORMIN [Glucophage] 1 tab PO DAILY #0 08/15/18 08/26/18 Rx - History PMHx:Hypothyroidism, Microcytic anemia, chronic venous insufficiency, atrial fibrillation, hep C, T2DM, HTN, COPD, glaucoma, peripheral neuropathy, chronic low back pain PSHx: knee surgery, eye surgery X2, DAWIT-BSO, cholecystectomy, internal hemorrhoid resection FHx:DM, HTN Social: lives alone, denies drugs - Review of Systems General: denies: fever/chills, weight/appetite/sleep changes, fatigue Eyes: denies: eye pain Respiratory: denies: cough, congestion, shortness of breath Cardiovascular: denies: chest pain, palpitation, edema Gastrointestinal: denies: nausea, vomiting, diarrhea Genitourinary: denies: incontinence, dysuria Skin: reports: rashes Musculoskeletal: reports: pain, swelling. denies: tenderness, stiffness Neurological: denies: numbness, syncope - Vital signs BP: [123/80] HR: [80] RR: [18] Tmax: [98.9] Pox: [100]% on [RA] Wt: [69.4kg] - Physical Exam Constitutional: NAD, well developed HEENT: normocephalic and atraumatic, grossly normal vision, grossly normal hearing Neck: FROM, trachea midline Chest: no-tender to palpation, no lesions Heart: RRR, normal S1/S2, no murmurs/rubs/gallops, pulses present, no edema Lungs: CTAB, no respiratory distress, good air movement, no wheezing, no retractions Abdomen: soft, non-tender Musculoskeletal: normal structure, normal tone, ROM grossly normal Neurological: no focal deficit Skin: good turgor, capillary refill <2 seconds -Skin: LLE erythema and edema extending to mid calf, warmth and painful to palpation Heme/Lymphatic: no unusual bruising or bleeding, no purpura Psychiatric: normal mood and affect FMR H&P: Results - Labs Result Diagrams: 08/27/18 04:29 08/27/18 04:29 Lab results: WBC 2.5 thou/uL (4.8-10.8) L 08/26/18 14:27 Hgb 10.5 g/dL (12.0-16.0) L 08/26/18 14:27 Hct 33.1 % (36.0-47.0) L 08/26/18 14:27 MCV 79.7 fL (78.0-98.0) 08/26/18 14:27 Plt Count 242 thou/uL (130-400) 08/26/18 14:27 Neutrophils % 62.6 % (42.0-75.0) 08/26/18 14:27 Sodium 141 mmol/L (136-145) 08/26/18 14:27 Potassium 3.3 mmol/L (3.5-5.1) L 08/26/18 14:27 Chloride 109 mmol/L (98-107) H 08/26/18 14:27 Carbon Dioxide 25 mmol/L (23-31) 08/26/18 14:27 BUN 11 mg/dL (9.8-20.1) 08/26/18 14:27 Creatinine 0.78 mg/dL (0.6-1.1) 08/26/18 14:27 Glucose 92 mg/dL (80-115) 08/26/18 14:27 Lactic Acid 1.8 mmol/L (0.5-2.2) 08/26/18 16:23 Calcium 9.5 mg/dL (7.8-10.44) 08/26/18 14:27 Total Bilirubin 0.3 mg/dL (0.2-1.2) 08/26/18 14:27 AST 22 U/L (5-34) 08/26/18 14:27 ALT 13 U/L (8-55) 08/26/18 14:27 Alkaline Phosphatase 61 U/L (40-150) 08/26/18 14:27 Serum Total Protein 8.4 g/dL (6.0-8.3) H 08/26/18 14:27 Albumin 4.3 g/dL (3.4-4.8) 08/26/18 14:27 FMR H&P: A/P - Problem List (1) Left leg cellulitis Current Visit: No Status: Acute Code(s): L03.116 - CELLULITIS OF LEFT LOWER LIMB (2) COPD (chronic obstructive pulmonary disease) Current Visit: No Status: Chronic (3) Diabetes type 2, controlled Current Visit: No Status: Chronic Code(s): E11.9 - TYPE 2 DIABETES MELLITUS WITHOUT COMPLICATIONS Qualifiers: Diabetes mellitus terminal gauger insulin use: without half-way use Diabetes mellitus complication status: without complication Qualified Code(s): E11.9 - Type 2 diabetes mellitus without complications (4) GERD (gastroesophageal reflux disease) Current Visit: No Status: Chronic Code(s): K21.9 - GASTRO-ESOPHAGEAL REFLUX DISEASE WITHOUT ESOPHAGITIS Qualifiers: Esophagitis presence: with esophagitis Qualified Code(s): K21.0 - Gastro- esophageal reflux disease with esophagitis (5) HTN (hypertension) Current Visit: No Status: Chronic Code(s): I10 - ESSENTIAL (PRIMARY) HYPERTENSION Qualifiers: Hypertension type: essential hypertension Qualified Code(s): I10 - Essential (primary) hypertension (6) Hypothyroidism Current Visit: No Status: Chronic Code(s): E03.9 - HYPOTHYROIDISM, UNSPECIFIED Qualifiers: Hypothyroidism type: unspecified Qualified Code(s): E03.9 - Hypothyroidism , unspecified - Plan LLE cellulitis - extensive allergy list, failed outpatient, LA neg, low WBC. afebrile, VSS. no concern for sepsis at this point - 1 dose vanc in ED, continue - monitor for improvement - repeat CBC in AM - vital signs q4hr, encourage PO intake - monitor on medical floor - blood cultures pending COPD - no respiratory difficulty at this time - continue to monitor closely - continue home meds DMII - continue home meds - monitor daily BMP GERD - continue home meds Hypothyroid - continue home meds paroxysmal afib - aware, continue home meds h/o syphillis - aware abx: vancomycin ppx: xarelto code: full Disposition/LOS: treat LLE cellulitis with IV doxycycline, monitor for improvement FMR H&P: Upper Level - Pertinent history 68 y/o F w/ PMHx of 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 She noted significant improvement on IV Vancomycin and was transitioned to PO Keflex. She reportedly developed hived and itching on the Keflex and this had to be discontinued outpatient. Pt reports redness began to worsen again this past Sunday. She was seen in the ER yesterday and d/madison w/ Keflex which she is unable to tolerate and therefore did not take this medication. She was seen in clinic earlier today and had temp of 100.0 degF and need for IV abx in the past prompting ER visit again today. Denies any fever/chills/nausea/ purulent drainage from LE. Pt does have significant hx of allergies to multiple abx including PCN, fluroquinolones, sulfa, macrolides, and cephalosporins. - Pertinent findings BP 123/80 P 80 RR 18 100% on RA 98.9 DegF 69.4 kg WBC 2.5 HGB 10.5 Hct 33.1 PLT 242 Neut 62.6% K 3.3 LA 1.8 GEN: NAD, sitting in wheelchair HEENT: Normocephalic, atraumatic CARDS: RRR, no murmur PULM: CTA-b/l EXT: Erythema of L-LE extending to mid guthrie w/ associated edema as compared to the right. TTP, no palpable cords - Plan Date/Time: 08/26/18 396 Lisa Jeong MD, have evaluated this patient and agree with findings/plan as outlined by internet sales associate resident. Pertinent changes/additions are listed here. 68 y/o F w/: 1) Cellulitis w/ failed outpatient treatment - Patient w/ multiple antibiotic allergies and failed outpatient treatment w/ Keflex which she developed an allergy to. Patient started on Vancomycin in the ER which she saw significant improvement in her sxs during her last hospitalization and did not have any allergic reaction to this medication - No evidence of sepsis at this point in time - Will plan to continue w/ IV Vanc and nayan edge of erythema to monitor for improvement - It does not appear patient has a known allergy to doxycycline per chart review and this may be an acceptable PO alternative. However, in setting of patients significant allergy hx and development of allergy to Keflex she was d/ madison on it is reasonable to put her back on IV Vancomycin given its proven benefit until she shows improvement clinically - Given hx of this will consider consulting ID for further recommendations and treatment w/ full course of IV Vanc vs trial of transition to PO doxycycline 2) Hypokalemia - Will replace w/ 40 mEq PO and repeat in AM 3) COPD - Stable, will cont. w/ home meds 4) HTN - At goal, cont. w/ home meds 5) T2DM - Recent A1c 02/06 at 6.1 - Will cont. w/ home meds w/ SSI and AC/HS accuchecks w/ goal BG 140-180 in setting of acute infection 6) Hypothyroidism - Recent TSH 02/06 2.25, will cont. w/ home regimen 7) Paroxysmal A-fib - Cont. w/ home xarelto and metoprolol for rate control CODE STATUS: Full Code PPX: Xarelto LOS Likely >2 midnights pending clinical response Assessment and Plan Discussed w/ Dr. Licea who is in agreement. Attending Addendum - Attending Addendum Date/Time: 08/27/18 1465 I personally evaluated the patient and discussed the management with Dr. Guerrero. I agree with the History, Examination, Assessment and Plan documented above with any addition or exceptions noted below. Ms Cadena has several medication allergies and her now chronic LE cellulitis has only responded to IV therapy. Will admit for IV antibx therapy.
[2018-08-26] MEDS ORDERED: Clindamycin/D5W 900 mg/50 ml Premix Bag ONE (17:11)
[2018-08-26] MEDS ORDERED: HYDROcodone/Acetaminophen 5/325 mg Tablet ONE (17:27)
[2018-08-26] MEDS ORDERED: diphenhydrAMINE 50 MG/ML VIAL ONE ×2 (17:29→17:39)
[2018-08-26] MEDS ORDERED: Famotidine/PF 20 mg/2ml Vial ONE (17:29)
[2018-08-26] MEDS ORDERED: methylPREDNISolone Sod Succ/PF 125 MG/2 ML VIAL ONE (17:29)
[2018-08-26] MEDS ORDERED: Water For Inject, Bacteriostat 30 ML ONE (17:30)
[2018-08-26] MEDS ORDERED: HumaLOG 300 UNITS/3 ML VIAL SC PRN (18:44)
[2018-08-26] MEDS ORDERED: Dextrose 5% in Water 1,000 ML IV PRN (18:44)
[2018-08-26] MEDS ORDERED: Dextrose 50% Abboject 50 ML SYRINGE SLOW IVP PRN (18:44)
[2018-08-26] MEDS ORDERED: Acetaminophen 325 MG TAB PO PRN (18:44)
[2018-08-26] MEDS ORDERED: Ondansetron PF 4 MG/2 ML Vial IVP PRN (18:50)
[2018-08-26] MEDS ORDERED: Ondansetron ODT 4 MG TAB SL PRN (18:50)
[2018-08-26] MEDS ORDERED: Sodium Chloride 0.9% 1,000 ML IV SCH (18:51)
[2018-08-26 18:59] VITALS: BMI 24.1
[2018-08-27] MEDS ORDERED: traMADol HCl 50 MG TAB PO PRN (04:58)
[2018-08-27] MEDS ORDERED: diphenhydrAMINE 25 MG CAP PO PRN (04:58)
[2018-08-27] MEDS ORDERED: Vancomycin HCl 1 GM in Premix Bag 1 BAG IVPB SCH (05:00)
[2018-08-27 05:03] LABS: Hemoglobin 8.8 g/dL (12.0-16.0); Mean Corpuscular HGB CONC 30.3 g/dL (32.0-36.0); Mean Corpuscular Hemoglobin 24.2 pg (27.0-31.0); Mean Corpuscular Volume 79.7 fL (78.0-98.0); RBC Distribution Width 14.2 % (11.5-14.5); Red Blood Cell (RBC) Count 3.62 mill/uL (4.20-5.40); White Blood Cell (WBC) Count 3.6 thou/uL (4.8-10.8)
[2018-08-27 05:04] LABS: #Lymphocytes 0.3 thou/uL (1.20-3.40); #Monocytes 0.1 thou/uL (0.11-0.59); #Neutrophils 3.1 thou/uL (1.40-6.50); %Basophils 0.5 % (0.0-1.0); %Lymphocytes 7.9 % (21.0-51.0); %Neutrophils 87.6 % (42.0-75.0); Mean Platelet Volume 9.1 fL (7.4-10.4); Platelet Count 206 thou/uL (130-400)
[2018-08-27 05:15] LABS: Anion Gap 9 mmol/L (10-20); BUN (Urea Nitrogen) 12 mg/dL (9.8-20.1); Calc. Creatinine Clearance 79 mL/min (70-130); Calcium 8.6 mg/dL (7.8-10.44); Carbon Dioxide 23 mmol/L (23-31); Chloride 113 mmol/L (98-107); Estimated GFR-MDRD Greater than 90; Glucose 200 mg/dL (80-115); Potassium 3.8 mmol/L (3.5-5.1); Sodium 141 mmol/L (136-145)
[2018-08-27] MEDS ORDERED: PROVENTIL INHALER 6.7 G (200 INHALATIONS) INH PRN (05:15)
[2018-08-27] MEDS: Levothyroxine Sodium 25 MCG TAB PO SCH (06:18)
--- NOTE | 2018-08-27 06:25 | PDOC.FM ---
- Subjective Subjective: Ms. Cadena is resting comfortably in bed. She reports leg pain, but improvement in the rash. She has not asked for tylenol yet because she has not had breakfast. ambulating appropriately - Objective Vital Signs & Weight: Vital Signs (12 hours) Temp Pulse Resp BP Pulse Ox 08/27/18 00:01 98.4 F 76 18 107/62 100 08/26/18 20:00 98 08/26/18 18:35 98.5 F 76 18 131/83 100 Weight Weight 69.9 kg Result Diagrams: 08/27/18 04:29 08/27/18 04:29 <Helder Guerrero - Last Filed: 08/27/18 07:51> - Objective Vital Signs & Weight: Vital Signs (12 hours) Temp Pulse Resp BP Pulse Ox 08/27/18 11:26 77 16 100 08/27/18 11:00 98.5 F 68 19 110/71 100 08/27/18 08:59 92 08/27/18 08:00 98 08/27/18 07:46 98.2 F 92 20 122/76 93 L 08/27/18 06:51 76 16 100 Weight Weight 69.9 kg Result Diagrams: 08/27/18 04:29 08/27/18 04:29 <Armaan Bennett - Last Filed: 08/27/18 12:57> Phys Exam - Physical Examination Constitutional: NAD HEENT: moist MMs Neck: no nodes Respiratory: no wheezing, no rales, no rhonchi, clear to auscultation bilateral Cardiovascular: RRR, no significant murmur, no rub Gastrointestinal: soft, non-tender, no distention Musculoskeletal: no edema, pulses present Neurological: non-focal Psychiatric: normal affect Skin: no rash <Helder Guerrero - Last Filed: 08/27/18 07:51> Dx/Plan (1) Left leg cellulitis Code(s): L03.116 - CELLULITIS OF LEFT LOWER LIMB Status: Acute (2) COPD (chronic obstructive pulmonary disease) Status: Chronic (3) Diabetes type 2, controlled Code(s): E11.9 - TYPE 2 DIABETES MELLITUS WITHOUT COMPLICATIONS Status: Chronic Qualifiers: Diabetes mellitus buttermaker helper insulin use: without usp use Diabetes mellitus complication status: without complication Qualified Code(s): E11.9 - Type 2 diabetes mellitus without complications (4) GERD (gastroesophageal reflux disease) Code(s): K21.9 - GASTRO-ESOPHAGEAL REFLUX DISEASE WITHOUT ESOPHAGITIS Status: Chronic Qualifiers: Esophagitis presence: with esophagitis Qualified Code(s): K21.0 - Gastro- esophageal reflux disease with esophagitis (5) HTN (hypertension) Code(s): I10 - ESSENTIAL (PRIMARY) HYPERTENSION Status: Chronic Qualifiers: Hypertension type: essential hypertension Qualified Code(s): I10 - Essential (primary) hypertension (6) Hypothyroidism Code(s): E03.9 - HYPOTHYROIDISM, UNSPECIFIED Status: Chronic Qualifiers: Hypothyroidism type: unspecified Qualified Code(s): E03.9 - Hypothyroidism , unspecified - Plan Plan: LLE cellulitis - extensive allergy list, failed outpatient, LA neg, low WBC. afebrile, VSS. no concern for sepsis at this point - 1 dose vanc in ED, reported reaction, switched to doxycyline - monitor for improvement - monitoring CBC - vital signs q4hr, encourage PO intake - monitor on medical floor - blood cultures pending Anemia - normocytic hemophiliac, worked up in the past - has not needed treatment COPD - no respiratory difficulty at this time - continue to monitor closely - continue home meds DMII - continue home meds - monitor daily BMP GERD - continue home meds Hypothyroid - continue home meds paroxysmal afib - aware, continue home meds h/o syphillis - aware abx: vancomycin ppx: xarelto code: full <Helder Guerrero - Last Filed: 08/27/18 07:51> Attending Addendum - Attending Addendum Date/Time: 08/27/18 1256 I personally evaluated the patient and discussed the management with Dr. Guerrero and Aisha. I agree with and repeated the History, Examination, Assessment and Plan documented above with any addition or exceptions noted below. Pt tells me she has a recent dx of lupus. Bx of leg revealed leukocytoclastic vasculitis apparently. Will review clinic records. On exam she has erythema that is non-confluent and appears vasculitis and not cellulitic. No tenderness , warmth, edema. Marked improvement apparently after 1 dose of steroids and 1 dose of antibiotics. Likely transition to PO and d/c today or tomorrow pending course. <Armaan Bennett - Last Filed: 08/27/18 12:57>
[2018-08-27] MEDS: Mometasone/Formoterol 120 PUFF INHALER INH SCH ×2 (06:51→18:16)
[2018-08-27] MEDS: Rivaroxaban 10 MG TAB PO SCH (08:59)
[2018-08-27] MEDS: NIFEdipine XL 60 MG TAB PO SCH (08:59)
[2018-08-27] MEDS: metFORMIN 500 MG TAB PO SCH (09:00)
[2018-08-27] MEDS ORDERED: Non-Formulary Item 1 EACH (Budesonide-Formoterol [Symbicort 160-4.5] 1 PUFF) INH SCH (09:00)
[2018-08-27] MEDS: Ferrous Sulfate 325 MG TAB PO SCH ×2 (09:00→16:50)
[2018-08-27] MEDS: traMADol HCl 50 MG TAB PO PRN ×2 (09:00→20:06)
[2018-08-27] MEDS ORDERED: Non-Formulary Item 1 EACH (Esomeprazole Magnesium [Nexium 24hr] 40 MG) PO SCH (09:00)
[2018-08-27] MEDS: Ascorbic Acid 500 mg Chewable Tablet PO SCH ×2 (09:01→16:50)
[2018-08-27] MEDS: Fluticasone Propionate Nasal Spray 16 gm Bottle NASAL SCH (10:20)
[2018-08-27] MEDS: Brimonidine Tartrate 0.2% Ophth Soln 5 ml Bottle R EYE SCH ×2 (10:23→20:06)
--- NOTE | 2018-08-27 15:20 | ULT ---
VENOUS DOPPLER ULTRASOUND OF THE LEFT LOWER EXTREMITY: Date: 08/27/18 HISTORY: Lower extremity vasculitis, left lower extremity pain. TECHNIQUE: Scott scale ultrasound with color flow and spectral Doppler imaging of the deep venous system of the l eft lower extremity performed. FINDINGS: There is good flow, compression, and augmentation noted in the left common femoral, femoral, deep fem oral, popliteal, posterior tibial, and greater saphenous veins. IMPRESSION: No evidence of deep venous thrombosis in the left lower extremity. POS: VLAD
[2018-08-27 19:12] LABS: Bilirubin Negative (Negative); Blood, Urine Negative (Negative); Clarity CLEAR (Clear); Glucose, Urine (Dipstick) Negative (Negative); Leukocyte Negative (Negative); Nitrite Negative (Negative); Protein, Urine (Dipstick) Negative (Neg-Trace); Specific Gravity, Urine 1.011 (1.002-1.036); Urobilinogen 0.2 mg/dL (0.2-1.0)
[2018-08-27 19:15] LABS: Bacteria/HPF None Seen HPF (None Seen); Hyaline Casts/LPF 0-3 HYALINE CAST LPF (0-3 Hyaline); Pathc Cast-AUWi Flag 0.29 (0-2.49); RBC/HPF None Seen HPF (0-3); Squamous Epithelial 0-3 HPF (0-3); WBC/HPF None Seen HPF (0-3)
[2018-08-27] MEDS ORDERED: Rosuvastatin 10 MG TAB PO SCH (21:00)
[2018-08-28] MEDS: Levothyroxine Sodium 25 MCG TAB PO SCH (06:00)
--- NOTE | 2018-08-28 06:42 | PDOC.FM ---
- Subjective Subjective: Ms. Cadena is resting comfortably in bed, tolerating PO. she reports decreased pain and redness, no new complaints. - Objective Vital Signs & Weight: Vital Signs (12 hours) Temp Pulse Resp BP Pulse Ox 08/28/18 03:00 98.3 F 61 16 128/80 100 08/27/18 19:00 98.4 F 72 16 110/74 98 Weight Weight 69.9 kg Result Diagrams: 08/27/18 04:29 08/27/18 04:29 <Helder Guerrero - Last Filed: 08/28/18 08:24> - Objective Vital Signs & Weight: Vital Signs (12 hours) Temp Pulse Resp BP BP Pulse Ox 08/28/18 08:14 67 135/84 08/28/18 08:00 99 08/28/18 07:00 98.7 F 67 16 135/84 99 08/28/18 06:47 66 16 100 08/28/18 03:00 98.3 F 61 16 128/80 100 Weight Weight 69.9 kg Result Diagrams: 08/27/18 04:29 08/27/18 04:29 <Armaan Bennett - Last Filed: 08/28/18 14:34> Phys Exam - Physical Examination Constitutional: NAD HEENT: moist MMs Respiratory: no wheezing, no rales, clear to auscultation bilateral Cardiovascular: RRR, no significant murmur Musculoskeletal: no edema, pulses present Deviation from normal: erythema greatly reduced in LLE <Helder Guerrero - Last Filed: 08/28/18 08:24> Dx/Plan (1) Left leg cellulitis Code(s): L03.116 - CELLULITIS OF LEFT LOWER LIMB Status: Acute (2) COPD (chronic obstructive pulmonary disease) Status: Chronic (3) Diabetes type 2, controlled Code(s): E11.9 - TYPE 2 DIABETES MELLITUS WITHOUT COMPLICATIONS Status: Chronic Qualifiers: Diabetes mellitus long-term insulin use: without patient financial advocate use Diabetes mellitus complication status: without complication Qualified Code(s): E11.9 - Type 2 diabetes mellitus without complications (4) GERD (gastroesophageal reflux disease) Code(s): K21.9 - GASTRO-ESOPHAGEAL REFLUX DISEASE WITHOUT ESOPHAGITIS Status: Chronic Qualifiers: Esophagitis presence: with esophagitis Qualified Code(s): K21.0 - Gastro- esophageal reflux disease with esophagitis (5) HTN (hypertension) Code(s): I10 - ESSENTIAL (PRIMARY) HYPERTENSION Status: Chronic Qualifiers: Hypertension type: essential hypertension Qualified Code(s): I10 - Essential (primary) hypertension (6) Hypothyroidism Code(s): E03.9 - HYPOTHYROIDISM, UNSPECIFIED Status: Chronic Qualifiers: Hypothyroidism type: unspecified Qualified Code(s): E03.9 - Hypothyroidism , unspecified - Plan Plan: LLE cellulitis - extensive allergy list, failed outpatient, LA neg, low WBC. afebrile, VSS. 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 possible reason for recurring rash - continue to work up outpatient Anemia - normocytic hemophiliac, worked up in the past - at baseline COPD - no respiratory difficulty at this time - continue to monitor closely - continue home meds DMII - glucose at goal, continue home meds GERD - continue home meds Hypothyroid - continue home meds paroxysmal afib - aware, continue home meds h/o syphillis - aware abx: doxycycline ppx: xarelto code: full Dispo: transition to PO abx, possible DC today <Helder Guerrero - Last Filed: 08/28/18 08:24> Attending Addendum - Attending Addendum Date/Time: 08/28/18 1432 I personally evaluated the patient and discussed the management with Dr. Guerrero. I agree with and repeated the History, Examination, Assessment and Plan documented above with any addition or exceptions noted below. Marked improvement in rash. NO f/c. Plan for d/c with appropriate follow up. <Armaan Bennett - Last Filed: 08/28/18 14:34>
[2018-08-28] MEDS: Mometasone/Formoterol 120 PUFF INHALER INH SCH (06:47)
[2018-08-28 08:13] VITALS: BP 135/84; TEMP 98.7
[2018-08-28] MEDS: Rivaroxaban 10 MG TAB PO SCH (08:13)
[2018-08-28] MEDS: Ferrous Sulfate 325 MG TAB PO SCH (08:13)
[2018-08-28] MEDS: NIFEdipine XL 60 MG TAB PO SCH (08:14)
[2018-08-28] MEDS: metFORMIN 500 MG TAB PO SCH (08:14)
[2018-08-28] MEDS: Ascorbic Acid 500 mg Chewable Tablet PO SCH (08:15)
[2018-08-28] MEDS: Brimonidine Tartrate 0.2% Ophth Soln 5 ml Bottle R EYE SCH (08:16)
[2018-08-28] MEDS: Fluticasone Propionate Nasal Spray 16 gm Bottle NASAL SCH (08:16)
[2018-08-28] MEDS: traMADol HCl 50 MG TAB PO PRN (11:49)
[2018-08-28] MEDS ORDERED: Doxycycline 100 MG CAP PO SCH (21:00)
--- NOTE | 2018-08-29 03:13 | DIS-2 ---
DATE OF ADMISSION: 08/26/2018 DATE OF DISCHARGE: 08/28/2018 RESIDENT: Helder Guerrero DO ADMITTING ATTENDING: Dr. Skyler Licea. DISCHARGE ATTENDING: Dr. Armaan Bennett. CONSULTATIONS: None. PROCEDURE: Vascular ultrasound of the left lower extremity revealed No evidence of deep vein thrombosis in the left lower extremity. PRIMARY DIAGNOSIS: Left lower extremity vasculitis. SECONDARY DIAGNOSES: 1. Anemia. 2. Chronic obstructive pulmonary disease. 3. Diabetes mellitus type 2. 4. Gastroesophageal reflux disease. 5. Hypothyroid. 6. Paroxysmal atrial fibrillation. 7. History of syphilis. DISCHARGE MEDICATIONS: 1. Metoprolol succinate 50 mg p.o. daily. 2. Synthroid 25 mcg p.o. daily. 3. Xopenex HFA inhaler 1 puff inhaled q.4 hours p.r.n. 4. Symbicort 1 puff inhaled b.i.d. 5. Nexium 40 mg p.o. daily. 6. Alphagan 1 drop right eye b.i.d. 7. Flonase 1 spray each naris daily. 8. Xarelto 20 mg p.o. daily. 9. Crestor 10 mg p.o. at bedtime. 10. Procardia-XL 1 tab p.o. daily. 11. Vitamin C 500 mg p.o. b.i.d. 12. Feosol 325 mg p.o. b.i.d. with meals. 13. Tramadol 50 mg p.o. q.6 hours p.r.n. 14. Tramadol 100 mg p.o. q.6 hours p.r.n. 15. Benadryl 25 mg p.o. q.6 hours p.r.n. 16. Metformin 1 tab p.o. daily. 17. Doxycycline 100 mg p.o. b.i.d. for the next 6 days. DISCONTINUED MEDICATIONS: None. HISTORY OF PRESENT ILLNESS AND HOSPITAL COURSE: Ms. Cadena presents as a direct admit from clinic for left lower extremity pain and redness. She was admitted for similar symptoms in the past and has multiple reactions to antibiotics. She was discharged on Keflex from the ER on 08/15, she is allergic to this medication. At this time, she did not take it. she returned to clinic the next day and was sent back to the ER for direct admission. Upon arrival she denied any fever, chills, abdominal pain, chest pain, or shortness of breath. She continued to be asymptomatic for systemic signs or symptoms during her hospital stay. She was started on vancomycin down in the ED and switched to doxycycline on the hospital for transition to p.o. doxycycline with improvement of her left lower extremity redness and swelling and pain. 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 DISPOSITION: Stable. DISCHARGE INSTRUCTIONS: 1. Location: Home. 2. Diet: Heart healthy. 3. Activity: As tolerated. 4. Followup: Follow up with PCP, Dr. Charles Pepe, in 7 days. 5. Rheumatology appointment as referred to. DEUCE
== END 2018-08-28 12:25 | disposition home or self-care (01) | DRG 603 ==
LOC: ERS 13:18 → T4-A 18:27
PROVIDERS: ADMIT Emergency Medicine; ATTEND Emergency Medicine
DX: L03.116 Cellulitis of left lower limb (principal); E87.6 Hypokalemia; E03.9 Hypothyroidism, unspecified; D64.9 Anemia, unspecified; I87.2 Venous insufficiency (chronic) (peripheral); I10 Essential (primary) hypertension; J44.9 Chronic obstructive pulmonary disease, unspecified; M32.9 Systemic lupus erythematosus, unspecified; B19.20 Unspecified viral hepatitis C without hepatic coma; E11.9 Type 2 diabetes mellitus without complications; K21.9 Gastro-esophageal reflux disease without esophagitis; I48.0 Paroxysmal atrial fibrillation; Z88.8 Allergy status to other drugs, medicaments and biological substances; Z88.1 Allergy status to other antibiotic agents; Z88.0 Allergy status to penicillin; Z88.2 Allergy status to sulfonamides; Z88.6 Allergy status to analgesic agent; Z79.899 Other long term (current) drug therapy; Z79.51 Long term (current) use of inhaled steroids; Z79.84 Long term (current) use of oral hypoglycemic drugs
CPT/HCPCS: 36415; 36416; 80048; 80053; 81001; 83605; 85025; 87040; 96361; 96374; 96375; 99283; J1200; J2930; J3370; J3490; J7050; S0028

== ENCOUNTER 2018-09-03 12:53 | Outpatient (CLI) | payer MEDICARE, MEDICAID ==
--- NOTE | 2018-09-03 13:46 | RAD ---
CHEST PA AND LATERAL: History: 68-year-old female with history of dyspnea. Comparison: 07-15-15 FINDINGS: The heart size is within normal limits. The lungs are clear. No pneumonia, edema, pleural effusion or other acute process. IMPRESSION: No acute intrathoracic disease. Stable from prior study. Atherosclerosis of the aorta. POS: C
== END 2018-09-03 12:54 | disposition home or self-care (01) ==
LOC: RAD 12:53
PROVIDERS: ATTEND Internal Medicine
DX: R06.00 Dyspnea, unspecified (principal); I70.0 Atherosclerosis of aorta
CPT/HCPCS: 71046

== ENCOUNTER 2018-11-07 12:20 | Outpatient (CLI) | payer MEDICARE, MEDICAID | END 2018-11-07 12:21 | disposition home or self-care (01) | LOC: CP 12:20 | PROVIDERS: ATTEND Internal Medicine | DX: J98.4 Other disorders of lung (principal) | CPT/HCPCS: 94060; 94727; 94729 ==

== ENCOUNTER 2018-11-16 07:12 | Emergency (ER) | payer MEDICARE, MEDICAID ==
[2018-11-16 07:55] LABS: #Lymphocytes 0.9 thou/uL (1.20-3.40); #Monocytes 0.4 thou/uL (0.11-0.59); #Neutrophils 1.7 thou/uL (1.40-6.50); %Basophils 0.2 % (0.0-1.0); %Eosinophils 0.9 % (0.0-10.0); %Monocytes 12.2 % (0.0-10.0); %Neutrophils 57.7 % (42.0-75.0); Hemoglobin 10.4 g/dL (12.0-16.0); Mean Corpuscular HGB CONC 32.3 g/dL (32.0-36.0); Mean Corpuscular Hemoglobin 25.3 pg (27.0-31.0); Mean Corpuscular Volume 78.2 fL (78.0-98.0); Mean Platelet Volume 9.6 fL (7.4-10.4); Platelet Count 178 thou/uL (130-400); RBC Distribution Width 13.5 % (11.5-14.5); Red Blood Cell (RBC) Count 4.11 mill/uL (4.20-5.40)
[2018-11-16 08:00] LABS: INR-International Normal Ratio 1.1; PTT 38.4 SEC (22.9-36.1); Prothrombin Time 14.1 SEC (12.0-14.7)
[2018-11-16 08:19] LABS: ALT (SGPT) 7 U/L (8-55); AST (SGOT) 18 U/L (5-34); Albumin 4.1 g/dL (3.4-4.8); Alkaline Phosphatase 72 U/L (40-150); Anion Gap 13 mmol/L (10-20); BUN (Urea Nitrogen) 14 mg/dL (9.8-20.1); Bilirubin, Total 0.2 mg/dL (0.2-1.2); Calc. Creatinine Clearance 0 mL/min (70-130); Calcium 9.6 mg/dL (7.8-10.44); Carbon Dioxide 21 mmol/L (23-31); Chloride 106 mmol/L (98-107); Estimated GFR-MDRD 65; Globulin 4.1 g/dL (2.4-3.5); Glucose 148 mg/dL (80-115); Potassium 3.3 mmol/L (3.5-5.1); Protein, Total 8.2 g/dL (6.0-8.3); Sodium 137 mmol/L (136-145)
== END 2018-11-16 08:14 | disposition home or self-care (01) ==
LOC: ERS 07:12
DX: K64.4 Residual hemorrhoidal skin tags (principal); I48.91 Unspecified atrial fibrillation; I10 Essential (primary) hypertension; M10.9 Gout, unspecified; M19.90 Unspecified osteoarthritis, unspecified site; J44.9 Chronic obstructive pulmonary disease, unspecified; Z79.891 Long term (current) use of opiate analgesic; Z79.01 Long term (current) use of anticoagulants; Z79.899 Other long term (current) drug therapy
CPT/HCPCS: 36415; 80053; 82274; 85025; 85610; 85730; 99283

== ENCOUNTER 2019-01-17 19:16 | Emergency (ER) | payer MEDICARE, OTHER ==
[~2019-01-17 19:16] MED LIST changes: -Gadobenate Dimeglumine 529 MG/1 ML (20ML VIAL) ONE; +ISOVUE-370 76%-LOCM 1 ML ONE
[2019-01-17 20:53] LABS: #Lymphocytes 1.3 thou/uL (1.20-3.40); #Monocytes 0.3 thou/uL (0.11-0.59); #Neutrophils 1.5 thou/uL (1.40-6.50); %Lymphocytes 41.4 % (21.0-51.0); %Monocytes 8.7 % (0.0-10.0); %Neutrophils 47.8 % (42.0-75.0); Hemoglobin 10.3 g/dL (12.0-16.0); Mean Corpuscular HGB CONC 32.7 g/dL (32.0-36.0); Mean Corpuscular Hemoglobin 25.8 pg (27.0-31.0); Mean Platelet Volume 9.4 fL (7.4-10.4); Platelet Count 179 thou/uL (130-400); RBC Distribution Width 13.7 % (11.5-14.5); Red Blood Cell (RBC) Count 3.98 mill/uL (4.20-5.40); White Blood Cell (WBC) Count 3.2 thou/uL (4.8-10.8)
[2019-01-17 20:58] LABS: Bilirubin Negative (Negative); Blood, Urine Negative (Negative); Clarity CLEAR (Clear); Glucose, Urine (Dipstick) Negative (Negative); Leukocyte Negative (Negative); Nitrite Negative (Negative); Protein, Urine (Dipstick) Negative (Neg-Trace); Specific Gravity, Urine 1.009 (1.002-1.036); Urobilinogen 0.2 mg/dL (0.2-1.0)
[2019-01-17 21:18] LABS: ALT (SGPT) 12 U/L (8-55); AST (SGOT) 21 U/L (5-34); Albumin 4.1 g/dL (3.4-4.8); Alkaline Phosphatase 80 U/L (40-150); Anion Gap 11 mmol/L (10-20); BUN (Urea Nitrogen) 18 mg/dL (9.8-20.1); Bilirubin, Total 0.2 mg/dL (0.2-1.2); Calc. Creatinine Clearance 0 mL/min (70-130); Calcium 9.5 mg/dL (7.8-10.44); Carbon Dioxide 24 mmol/L (23-31); Chloride 106 mmol/L (98-107); Estimated GFR-MDRD 54; Glucose 85 mg/dL (80-115); Lipase 53 U/L (8-78); Potassium 3.4 mmol/L (3.5-5.1); Protein, Total 8.1 g/dL (6.0-8.3); Sodium 138 mmol/L (136-145)
--- NOTE | 2019-01-17 21:25 | RAD ---
FEXAM: Left foot: 3 views INDICATIONS: Pain COMPARISON: None. FINDINGS: Spur from the plantar calcaneus. Tarsals, metatarsals and phalanges appear intact. No acute fracture. IMPRESSION: No acute finding
--- NOTE | 2019-01-17 21:26 | RAD ---
FEXAM: Left knee: 4 views INDICATIONS: Pain COMPARISON: None. FINDINGS: Moderate degenerative changes at the left knee. Loss of the lateral joint space with hypert rophic spurring. No fracture or acute abnormality. No significant change when compared to prior exam from 2012. IMPRESSION: Moderate degenerative changes of the left knee
--- NOTE | 2019-01-17 22:08 | CT ---
FCT head without contrast: Multiple axial tomograms obtained through the head without IV enhancement. INDICATIONS: Headache COMPARISON: 12/30/2015 FINDINGS: Ventricles have normal size and position. No evidence of intracranial mass, hemorrhage, edema, or infarct. Visualized sinuses and mastoids appear clear. Bony calvarium appears unremarkable. 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 No retro-orbital abnormality identified. IMPRESSION: No acute finding
--- NOTE | 2019-01-17 22:26 | CT ---
CT FACIAL BONES WITH CONTRAST: 01/17/19 Multiple axial tomograms obtained through the facial bones with IV enhancement. INDICATIONS: Pain around left eye prosthesis. Question abscess. FINDINGS: There is a very dense rounded portion of the left prosthesis and there is a slightly less dense anter ior portion of this prosthesis seen. There is a fluid density between these two components especially prominent to the left of this dense rounded portion of the prosthesis. The significance cannot be as sessed by CT. Ophthalmologic evaluation would be necessary. There is no retro-orbital inflammatory change. There is no periorbital edema or inflammatory change s een. The soft tissues of the face are unremarkable. There is paranasal sinus mucosal disease. There is opacification of the right maxillary sinus and par tial opacification of the left maxillary sinus. Opacification of the left ethmoid air cells. IMPRESSION: 1. No evidence of periorbital or subcutaneous facial inflammation or abscess. 2. Left eye prosthesis is seen. Fluid density surrounds the very dense portion of this prostheti c device to the left of midline. Significance of this fluid dense area is undetermined and would requ nagi ophthalmologic evaluation. 3. There is paranasal sinus mucosal disease as described. POS: [facility]
[2019-01-17] MEDS ORDERED: cefTRIAXone\\ROCEPHIN 2 GM VIAL ONE (23:55)
[2019-01-18] MEDS ORDERED: Morphine 4 MG/ML VIAL ONE (01:35)
== END 2019-01-18 01:44 | disposition short-term general hospital (02) ==
LOC: ERS 19:16
DX: T85.79XA Infection and inflammatory reaction due to other internal prosthetic devices, implants and grafts, initial encounter (principal); I48.91 Unspecified atrial fibrillation; I10 Essential (primary) hypertension; M10.9 Gout, unspecified; J44.9 Chronic obstructive pulmonary disease, unspecified; Z79.899 Other long term (current) drug therapy; Z79.01 Long term (current) use of anticoagulants; Z79.84 Long term (current) use of oral hypoglycemic drugs
CPT/HCPCS: 36415; 70450; 70487; 80053; 81003; 83690; 85025; 96365; 96375; J0696; J2270; J3370; Q9966

== ENCOUNTER 2019-04-09 12:54 | Emergency (ER) | payer MEDICARE, OTHER ==
[2019-04-09] MEDS ORDERED: traMADol HCl 50 MG TAB ONE (13:28)
--- NOTE | 2019-04-09 15:33 | RAD ---
LEFT FOOT THREE VIEWS: 04/09/19 HISTORY: Left foot injury, was stepped on, having pain since. Dorsal swelling of the forefoot. Calcaneal and plantar enthesophyte. Degenerative and osteoarthrosis changes of the first metatarsophalangeal joint. IMPRESSION: Soft tissue swelling of the forefoot. Degenerative and osteoarthrosis changes. No acute fracture. POS: [facility]
== END 2019-04-09 14:17 | disposition home or self-care (01) ==
LOC: ERS 12:54
DX: L03.116 Cellulitis of left lower limb (principal); I48.91 Unspecified atrial fibrillation; I10 Essential (primary) hypertension; J44.9 Chronic obstructive pulmonary disease, unspecified; M06.9 Rheumatoid arthritis, unspecified

== ENCOUNTER 2019-04-13 13:32 | Inpatient (IN) | payer MEDICARE, MEDICAID ==
[2019-04-13] MEDS ORDERED: Morphine 4 MG/ML VIAL ONE (14:54)
[2019-04-13 15:23] LABS: #Lymphocytes 0.9 thou/uL (1.20-3.40); #Monocytes 0.4 thou/uL (0.11-0.59); #Neutrophils 2.3 thou/uL (1.40-6.50); %Basophils 0.9 % (0.0-1.0); %Eosinophils 0.8 % (0.0-10.0); %Lymphocytes 24.7 % (21.0-51.0); %Monocytes 10.7 % (0.0-10.0); %Neutrophils 62.8 % (42.0-75.0); Hemoglobin 9.8 g/dL (12.0-16.0); Mean Corpuscular HGB CONC 32.3 g/dL (32.0-36.0); Mean Corpuscular Hemoglobin 25.3 pg (27.0-31.0); Mean Corpuscular Volume 78.3 fL (78.0-98.0); Mean Platelet Volume 8.9 fL (7.4-10.4); Platelet Count 198 thou/uL (130-400); RBC Distribution Width 13.5 % (11.5-14.5); Red Blood Cell (RBC) Count 3.89 mill/uL (4.20-5.40); White Blood Cell (WBC) Count 3.6 thou/uL (4.8-10.8)
[2019-04-13 15:47] LABS: ALT (SGPT) 11 U/L (8-55); AST (SGOT) 20 U/L (5-34); Albumin 4.2 g/dL (3.4-4.8); Alkaline Phosphatase 75 U/L (40-150); Anion Gap 17 mmol/L (10-20); BUN (Urea Nitrogen) 17 mg/dL (9.8-20.1); Bilirubin, Total 0.3 mg/dL (0.2-1.2); Calc. Creatinine Clearance 0 mL/min (70-130); Calcium 9.7 mg/dL (7.8-10.44); Carbon Dioxide 20 mmol/L (23-31); Chloride 107 mmol/L (98-107); Estimated GFR-MDRD 68; Globulin 4.7 g/dL (2.4-3.5); Glucose 107 mg/dL (80-115); Potassium 3.8 mmol/L (3.5-5.1); Protein, Total 8.9 g/dL (6.0-8.3); Sodium 140 mmol/L (136-145)
--- NOTE | 2019-04-13 15:54 | RAD ---
EXAM: XR Foot Lt 3 View STANDARD PROVIDED CLINICAL HISTORY: Cellulitis FINDINGS: Comparison 04/09/2019. There is no evidence for fracture or other acute osseous abnormality. Alignment appears anatomic. Joint spaces appear preserved. Soft tissue swelling of the dorsum of the foot is redemonstrated. No evidence for soft tissue gas. IMPRESSION: No evidence for an acute osseous abnormality. If there is persistent clinical concern, conservative m anagement and follow-up imaging advised.
[2019-04-13] MEDS ORDERED: Ondansetron PF 4 MG/2 ML Vial IVP PRN (17:09)
[2019-04-13] MEDS ORDERED: Insulin Regular 300 UNITS/3 ML VIAL SC PRN ×2 (17:21)
[2019-04-13] MEDS ORDERED: Dextrose 5% in Water 1,000 ML IV PRN (17:21)
[2019-04-13] MEDS ORDERED: Dextrose 50% Abboject 50 ML SYRINGE SLOW IVP PRN (17:21)
[2019-04-13] MEDS ORDERED: Morphine 4 MG/ML VIAL SLOW IVP PRN (17:25)
[2019-04-13] MEDS ORDERED: Sodium Chloride 0.9% 1,000 ML IV SCH (17:30)
--- NOTE | 2019-04-13 18:34 | HP ---
CHIEF COMPLAINT: Left lower extremity pain. HISTORY OF PRESENT ILLNESS: The patient is a 69-year-old -[place] female with past medical history significant for type 2 diabetes mellitus; hypertension ; and paroxysmal atrial fibrillation, on anticoagulation with Xarelto, who presented to the ER with complaints of pain and swelling on the dorsal aspect of her left foot. Last Sunday, when the patient was at [employer]ism, her foot was stepped on by a woman who was wearing a stiletto heel. There was an abrasion and some swelling at the time of injury, which worsened for the next several days. She presented to the ER on April 09, 2019, and was diagnosed with cellulitis on the dorsal aspect of that foot, and was discharged with clindamycin and tramadol. The patient was compliant with her medication regimen, but the pain and swelling continued to increase. The patient also endorses intermittent subjective fevers and nausea. She presented back to the ED today with her complaints. On arrival to the emergency department, her oral temperature was 100.1, and she did rate her pain as a 10. She has been having difficulty with weightbearing secondary to the pain and has been using crutches as well. Repeat x-ray of the foot today showed no evidence for an acute osseous abnormality. Soft tissue swelling of the dorsum of the foot was re- demonstrated with no evidence for soft tissue gas. The patient will be admitted to the Hospital Service after failing outpatient therapy. Other lab work was significant for a lactic acid level of 2.6, and CO2 of 20. REVIEW OF SYSTEMS: A 12-point review of systems performed. The patient does state that she has had been somewhat nauseated with somewhat poor appetite. Otherwise , her 12-point review of systems is negative except that stated above. ALLERGIES: AZITHROMYCIN, ERYTHROMYCIN BASE, HYDRALAZINE, HYDROCHLOROTHIAZIDE, IBUPROFEN, LEVOFLOXACIN, PENICILLINS, QUINOLONES, SULFA, AND DYAZIDE. HOME MEDICATIONS: 1. Tramadol 50 mg tablet 1 tablet orally q.4 hours p.r.n. 2. Albuterol 1 puff inhaler as needed. 3. Albuterol sulfate nebulizer every hours p.r.n. 4. Levothyroxine 25 mcg orally daily. 5. Xarelto 20 mg daily. 6. Nifedipine 60 mg orally 2 times daily. 7. Esomeprazole 40 mg tablet once daily. 8. Metformin 500 mg 1 tablet p.o. b.i.d. 9. Metoprolol succinate 50 mg once orally daily. 10. Alphagan eyedrops 1 drop to the right eye 2 times daily. PAST MEDICAL HISTORY: The patient has a fairly significant past medical history , which includes paroxysmal atrial fibrillation; hep C, which has been treated; hypertension; hyperlipidemia; gout; osteoarthritis; rheumatoid arthritis; lupus ; and COPD. PAST SURGICAL HISTORY: Positive for , cholecystectomy, hysterectomy, and hemorrhoidectomy. 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 SOCIAL HISTORY: The patient denies any alcohol, drug use, or smoking history. She did have significant smoking, alcohol and polysubstance abuse history in the distant past, but it has been over 20 years since any use. She currently lives at home and is able to perform all of her own ADLs. FAMILY HISTORY: Noncontributory. PHYSICAL EXAMINATION: GENERAL: The patient is an -[place] female, who appears her stated age, sitting up in bed, in no acute distress. VITAL SIGNS: Blood pressure 142/75, pulse is 70, respirations 14, temperature 98.7, and O2 saturation is 96% on room air. HEENT: Head is atraumatic and normocephalic. The patient has prosthetic left eye, mucous membranes are moist. NECK: No lymphadenopathy. Trachea is midline. CV: S1 and S2. Regular rate and rhythm. No appreciable murmurs, rubs, or gallops. LUNGS: Regular respiratory rate and pattern. Clear to auscultation bilaterally. ABDOMEN: Soft. Positive bowel sounds. Nontender. EXTREMITIES: The dorsum of the patient's left foot shows significant edema and warmth to the touch when compared to the other foot. No obvious abrasion or open injury to the skin. LABORATORY DATA: White blood cell count 3.6, hemoglobin 9.8, hematocrit 30.4, platelet count 198, sodium 140, potassium 3.8, chloride 107, carbon dioxide 20, BUN 17, and creatinine 0.98. Lactic acid is 2.6. AST, ALT, and alkaline phosphatase all within normal limits. Albumin is 4.2. ASSESSMENT: 1. Cellulitis of the left lower extremity, status post injury, failing outpatient therapy. 2. Mild lactic acidosis secondary to above. 3. Subjective fever, pain/swelling and difficulty with weightbearing secondary to cellulitis of the left lower extremity. 4. Type 2 diabetes mellitus. 5. Lupus. 6. Paroxysmal atrial fibrillation, CHADS-VASc equals 4, anticoagulated with Xarelto. 7. Chronic obstructive pulmonary disease. 8. Hypothyroidism. 9. Anemia of chronic disease. 10. History of hepatitis C, status post treatment. PLAN: Given the patient's multiple comorbidities, she is high risk for complication. Will cover the patient with vancomycin 1 g IV q.12, to dose by Pharmacy. We will provide gentle IV fluid resuscitation, and sliding scale insulin. Will continue the patient's home medications, and Physical Therapy consult. Her left foot x-ray x2 has been negative for any acute bony injury or osteomyelitis, but if she does not improve with IV antibiotics and supportive care, may need to consider MRI of the left foot for further investigation. We will continue antipyretics and pain control as well. Further recommendations based on hospital course. Job ID: [id number]
[2019-04-13] MEDS: Acetaminophen 325 MG TAB PO PRN (18:42)
[2019-04-13] MEDS: Sodium Chloride 0.9% 1,000 ML IV SCH (19:00)
[2019-04-13 19:25] LABS: Lactic Acid 5.1 mmol/L (0.5-2.2)
[2019-04-13] MEDS ORDERED: Sodium Chloride 0.9% 500 ML IV SCH (19:30)
[2019-04-13 20:06] VITALS: BMI 23.7
[2019-04-13] MEDS: HYDROcodone/Acetaminophen 5/325 mg Tablet PO PRN (20:24)
[2019-04-13] MEDS: Famotidine 20 MG TAB PO SCH (20:24)
[2019-04-13 21:31] LABS: Bilirubin Negative (Negative); Blood, Urine Negative (Negative); Clarity CLEAR (Clear); Glucose, Urine (Dipstick) Negative (Negative); Leukocyte Trace (Negative); Nitrite Negative (Negative); Protein, Urine (Dipstick) Negative (Neg-Trace); Specific Gravity, Urine 1.012 (1.002-1.036); Urobilinogen 0.2 mg/dL (0.2-1.0); pH, Urine 5.5 (5.0-9.0)
[2019-04-13 21:32] LABS: Bacteria/HPF None Seen HPF (None Seen); Hyaline Casts/LPF 0-3 HYALINE CAST LPF (0-3 Hyaline); Pathc Cast-AUWi Flag 0.54 (0-2.49); RBC/HPF 0-3 HPF (0-3); Squamous Epithelial 0-3 HPF (0-3)
[2019-04-13 21:37] LABS: Urine Culture Reflex Yes Yes
[2019-04-14] MEDS: Sodium Chloride 0.9% 1,000 ML IV SCH ×2 (00:24→16:15)
[2019-04-14] MEDS: Morphine 4 MG/ML VIAL SLOW IVP PRN ×3 (00:24→23:14)
[2019-04-14] MEDS: Vancomycin HCl 1 GM in Premix Bag 1 BAG IVPB SCH ×2 (03:16→16:15)
[2019-04-14] MEDS: HYDROcodone/Acetaminophen 5/325 mg Tablet PO PRN ×4 (05:10→20:14)
[2019-04-14] MEDS: Acetaminophen 325 MG TAB PO PRN (05:35)
[2019-04-14 06:41] LABS: #Eosinphils 0.1 thou/uL (0.0-0.7); #Lymphocytes 0.3 thou/uL (1.20-3.40); #Monocytes 0.4 thou/uL (0.11-0.59); %Eosinophils 1.6 % (0.0-10.0); %Neutrophils 83.4 % (42.0-75.0); Hemoglobin 8.8 g/dL (12.0-16.0); Mean Corpuscular HGB CONC 32.1 g/dL (32.0-36.0); Mean Corpuscular Hemoglobin 25.2 pg (27.0-31.0); Mean Corpuscular Volume 78.5 fL (78.0-98.0); Mean Platelet Volume 8.9 fL (7.4-10.4); Platelet Count 163 thou/uL (130-400); RBC Distribution Width 13.4 % (11.5-14.5); Red Blood Cell (RBC) Count 3.48 mill/uL (4.20-5.40); White Blood Cell (WBC) Count 4.8 thou/uL (4.8-10.8)
[2019-04-14 07:01] LABS: Anion Gap 12 mmol/L (10-20); BUN (Urea Nitrogen) 11 mg/dL (9.8-20.1); Calc. Creatinine Clearance 75 mL/min (70-130); Calcium 8.2 mg/dL (7.8-10.44); Carbon Dioxide 19 mmol/L (23-31); Chloride 109 mmol/L (98-107); Estimated GFR-MDRD 88; Glucose 93 mg/dL (80-115); Potassium 3.5 mmol/L (3.5-5.1); Sodium 136 mmol/L (136-145)
[2019-04-14] MEDS: Famotidine 20 MG TAB PO SCH ×2 (09:43→20:15)
--- NOTE | 2019-04-14 10:11 | PDOC.PN ---
- Subjective Encounter Start Date: 04/14/19 Encounter Start Time: 10:09 Patient lying in bed, she reports continued pain in left foot that is worse with weight bearing. She also complains of mild headache this morning as well as fever and chills. She denies subjective chest pain, shortness of breath. MRI pending. - Objective MAR Reviewed: Yes Vital Signs & Weight: Vital Signs (12 hours) Temp Pulse Resp BP Pulse Ox 04/14/19 08:00 99.1 F 87 18 95/61 96 04/14/19 06:13 100.6 F H 04/14/19 04:00 102.4 F H 94 20 105/62 97 04/14/19 00:24 89 20 102/64 04/14/19 00:05 99.7 F H 83 18 96/62 95 04/14/19 00:01 99.7 F H 83 18 102/62 95 Weight Weight 151 lb 11.2 oz I&O: 04/13/19 04/14/19 04/15/19 06:59 06:59 06:59 Intake Total 1904 Output Total 200 Balance 1704 Result Diagrams: 04/14/19 06:19 04/14/19 06:19 Additional Labs: Accuchecks 04/14/19 04/13/19 05:25 20:49 POC Glucose 73 143 H Radiology Reviewed by me: Yes Phys Exam - Physical Examination Constitutional: NAD HEENT: moist MMs, oral pharynx no lesions Neck: no nodes, supple Respiratory: no wheezing, clear to auscultation bilateral Cardiovascular: RRR, no significant murmur Gastrointestinal: soft, no distention, positive bowel sounds Musculoskeletal: pulses present erythema and edema noted dorsum of left foot Neurological: non-focal, moves all 4 limbs Lymphatic: no nodes Psychiatric: normal affect, A&O x 3 Dx/Plan (1) Cellulitis of left foot Code(s): L03.116 - CELLULITIS OF LEFT LOWER LIMB Status: Acute (2) COPD (chronic obstructive pulmonary disease) Status: Chronic (3) Chronic a-fib Code(s): I48.2 - CHRONIC ATRIAL FIBRILLATION Status: Chronic (4) Diabetes type 2, controlled Code(s): E11.9 - TYPE 2 DIABETES MELLITUS WITHOUT COMPLICATIONS Status: Chronic Qualifiers: Diabetes mellitus terminal gauger insulin use: without shelter use Diabetes mellitus complication status: without complication Qualified Code(s): E11.9 - Type 2 diabetes mellitus without complications (5) HTN (hypertension) Code(s): I10 - ESSENTIAL (PRIMARY) HYPERTENSION Status: Chronic Qualifiers: Hypertension type: essential hypertension Qualified Code(s): I10 - Essential (primary) hypertension (6) Hypothyroidism Code(s): E03.9 - HYPOTHYROIDISM, UNSPECIFIED Status: Chronic Qualifiers: Hypothyroidism type: unspecified Qualified Code(s): E03.9 - Hypothyroidism , unspecified - Plan cont current plan of care, continue antibiotics, PT/OT * Continue IV abx * Await mri left foot to rule out osteomyelitis * Blood cultures showing no growth to date * Continue other home medications * PT * Recheck lactic acid and continue IV NS fluids * Monitor BP and other vitals * Tylenol as needed for fevers * If no improvement on IV abx will consider consult to ID
[2019-04-14 10:53] LABS: Lactic Acid 1.3 mmol/L (0.5-2.2)
[2019-04-14] MEDS ORDERED: Gadobenate Dimeglumine 529 MG/1 ML (20ML VIAL) ONE (11:03)
--- NOTE | 2019-04-14 12:07 | MRI ---
MRI Low Ext No Jt Lt W WO Con History: Osteomyelitis Comparison: Radiograph prior day Findings: Bones: On the T1 weighted imaging sequence there are no foci of marrow signal replacement t o suggest osteomyelitis. Patchy marrow edema of the hindfoot. Degenerative changes of the talonavicular joint. Soft tissues: Within the dorsal soft tissues of the midfoot at the level of the second and third meta tarsal diaphyses is a peripherally enhancing collection measuring 2.3 cm in transverse by 1.1 cm and AP by 2.7 cm in craniocaudal dimension. This suggests superficial to the extensor tendons. Tendons: No significant tenosynovitis. Muscles: No evidence for hiatal myositis. Impression: 1. No evidence for osteomyelitis. 2. Dorsal soft tissue abscess of the midfoot as described. 3. No evidence for tenosynovitis. 4. No evidence for pyomyositis. Reactive edema within the dorsal interosseous muscle between the firs t and second metatarsals.
[2019-04-15] MEDS: HYDROcodone/Acetaminophen 5/325 mg Tablet PO PRN ×3 (02:10→15:27)
[2019-04-15] MEDS: Vancomycin HCl 1 GM in Premix Bag 1 BAG IVPB SCH ×2 (02:15→15:28)
[2019-04-15] MEDS: Sodium Chloride 0.9% 1,000 ML IV SCH ×2 (02:15→15:27)
[2019-04-15] MEDS ORDERED: diphenhydrAMINE 25 MG CAP PO PRN (04:43)
[2019-04-15] MEDS: Famotidine 20 MG TAB PO SCH ×2 (08:56→19:10)
[2019-04-15] MEDS ORDERED: Lidocaine 1% PF 5 ML VIAL ONE ×2 (11:39→11:40)
[2019-04-15] MEDS ORDERED: Ondansetron PF 4 MG/2 ML Vial ONE ×2 (11:39→11:40)
[2019-04-15] MEDS ORDERED: PROPOFOL 200 MG/20 ML VIAL ONE (11:40)
[2019-04-15] MEDS ORDERED: ePHEDrine 50 MG/ML VIAL ONE (11:40)
[2019-04-15] MEDS ORDERED: Dexamethasone 20 MG/5 ML VIAL ONE (11:40)
[2019-04-15] MEDS: Acetaminophen 325 MG TAB PO PRN ×2 (12:11→19:10)
[2019-04-15] MEDS ORDERED: Ibuprofen 600 MG TAB PO PRN (12:44)
[2019-04-15] MEDS ORDERED: traMADol HCl 50 MG TAB PO PRN (12:44)
[2019-04-15] MEDS ORDERED: Lidocaine 1% w/Epinephrine 1:100K 20 ML VIAL ONE (12:44)
[2019-04-15] MEDS: Morphine 4 MG/ML VIAL SLOW IVP PRN (12:51)
--- NOTE | 2019-04-15 13:22 | CON ---
DATE OF CONSULTATION: 04/15/2019 HISTORY OF PRESENT ILLNESS: Tonya Cadena is a 69-year-old black female, who injured her left foot when somebody on high heel stepped on it. She reported to the emergency room. She has had a foot x-ray and MRI demonstrating possible abscess. She has palpable pulses. SOCIAL HISTORY: Tobacco and alcohol, none. MEDICATIONS: At home include: 1. Tramadol. 2. Metformin. 3. Crestor. 4. Xarelto. 5. Potassium chloride. 6. Procardia. 7. Toprol. 8. Synthroid. 9. Xopenex. 10. Flonase. 11. Nexium. ALLERGIES: AZITHROMYCIN, ERYTHROMYCIN, HYDRALAZINE, HYDROCHLOROTHIAZIDE, LEVOFLOXACIN, PENICILLINS, AND QUINOLONES. PAST MEDICAL HISTORY: Anxiety; paroxysmal atrial fibrillation; hepatitis C, has been treated; hypertension; hyperlipidemia; osteoarthritis; rheumatoid arthritis; lupus; and COPD. PAST SURGICAL HISTORY: , cholecystectomy, hysterectomy, hemorrhoidectomy, and eye surgery. PHYSICAL EXAMINATION: VITAL SIGNS: Height 5 feet 7 inches, 151 pounds, 23 BMI. HEAD, EARS, EYES, NOSE, and THROAT: Unremarkable. LUNGS: Clear to auscultation. CARDIAC: Regular rate and rhythm. No murmur or gallop. ABDOMEN: Soft and nontender. No masses. EXTREMITIES: Palpable femoral, popliteal, dorsalis pedis, and posterior tibial pulses. Mass over the dorsum of her left foot. Very tender. Mild skin discoloration. ASSESSMENT AND PLAN: Suspect left foot abscess. She may have a hematoma. We will plan incision and drainage at the bedside. I did attempt this at the bedside, but she had so much pain and that we will have to go to the operating room under sedation. She understands risks and benefits and consents. Job ID: [id number]
--- NOTE | 2019-04-15 13:32 | OP ---
DATE OF PROCEDURE: 04/15/2019 PREOPERATIVE DIAGNOSIS: Left foot abscess. POSTOPERATIVE DIAGNOSIS: Left foot abscess. PROCEDURE PERFORMED: Incision and drainage of left foot abscess. ANESTHESIA: 1% Xylocaine. FINDINGS: The patient had a small incision made. She has extraordinary pain response. We will have to go to the operating room for further draining this. DESCRIPTION OF PROCEDURE: The patient at bedside. Her dorsum of left foot was prepared with alcohol. Local anesthetic was infiltrated in the skin and subcutaneous tissue. The patient had extraordinary pain reaction despite adequate local anesthetic infiltration. No significant hematoma. Purulence was removed from this indurated area. Sterile gauze dressing was applied. We will plan to go to the operating room for further evaluation under anesthesia. Job ID: [id number]
[2019-04-15] MEDS: traMADol HCl 50 MG TAB PO PRN ×2 (13:53→23:05)
--- NOTE | 2019-04-15 13:57 | PDOC.PN ---
- Subjective Encounter Start Date: 04/15/19 Encounter Start Time: 13:55 Patient lying in bed with family at bedside. She reports pain to left foot s/p I &D with Dr Nesbitt. She denies chest pain, palpitations or shortness of breath. - Objective MAR Reviewed: Yes Vital Signs & Weight: Vital Signs (12 hours) Temp Pulse Resp BP BP Pulse Ox 04/15/19 11:00 99.3 F 87 16 115/77 95 04/15/19 07:46 100.6 F H 91 18 125/81 97 04/15/19 04:00 99.5 F 87 18 108/66 100 04/15/19 03:00 99.8 F H Weight Admit Weight 151 lb 11.2 oz Weight 151 lb 11.2 oz I&O: 04/14/19 04/15/19 04/16/19 06:59 06:59 06:59 Intake Total 1904 3150 Output Total 200 Balance 1704 3150 Result Diagrams: 04/14/19 06:19 04/14/19 06:19 Additional Labs: Accuchecks 04/15/19 04/15/19 04/14/19 10:56 04:49 19:18 POC Glucose 107 88 88 04/14/19 16:51 POC Glucose 90 Radiology Reviewed by me: Yes Phys Exam - Physical Examination Constitutional: NAD HEENT: moist MMs, oral pharynx no lesions Neck: supple Respiratory: no wheezing, clear to auscultation bilateral Cardiovascular: RRR, no significant murmur Gastrointestinal: soft, positive bowel sounds Dressing over left foot noted Neurological: normal sensation, moves all 4 limbs Lymphatic: no nodes Psychiatric: normal affect, A&O x 3 Skin: no rash, cap refill <2 seconds Dx/Plan (1) Cellulitis of left foot Code(s): L03.116 - CELLULITIS OF LEFT LOWER LIMB Status: Acute (2) COPD (chronic obstructive pulmonary disease) Status: Chronic (3) Chronic a-fib Code(s): I48.2 - CHRONIC ATRIAL FIBRILLATION Status: Chronic (4) Diabetes type 2, controlled Code(s): E11.9 - TYPE 2 DIABETES MELLITUS WITHOUT COMPLICATIONS Status: Chronic Qualifiers: Diabetes mellitus exterminator termite insulin use: without [facility] use Diabetes mellitus complication status: without complication Qualified Code(s): E11.9 - Type 2 diabetes mellitus without complications (5) HTN (hypertension) Code(s): I10 - ESSENTIAL (PRIMARY) HYPERTENSION Status: Chronic Qualifiers: Hypertension type: essential hypertension Qualified Code(s): I10 - Essential (primary) hypertension (6) Hypothyroidism Code(s): E03.9 - HYPOTHYROIDISM, UNSPECIFIED Status: Chronic Qualifiers: Hypothyroidism type: unspecified Qualified Code(s): E03.9 - Hypothyroidism , unspecified - Plan cont current plan of care, plan discussed w/ family, continue antibiotics * MRI results discussed with patient, no signs of osteomyelitis but abscess noted. * Dr Nesbitt consulted who performed I&D at bedside and will plan to OR later * Continue IV abx * Pain control with morphine, tramadol and norco * Will add bowel regimen * Transition to inpatient with patient requiring further debridement and IV pain and abx
[2019-04-15 14:37] LABS: Vancomycin, Trough 17.5 ug/mL
[2019-04-15] MEDS ORDERED: Fentanyl 100 MCG/2 ML VIAL ONE ×2 (20:20→21:21)
[2019-04-15] MEDS ORDERED: Famotidine/PF 20 mg/2ml Vial ONE (20:20)
[2019-04-15] MEDS ORDERED: Lidocaine 2% PF 5 ML VIAL ONE (20:52)
[2019-04-15] MEDS ORDERED: Bupivacaine HCl 0.5%/Epinephrine 1:200,000/PF 30 ml Vial ONE (20:52)
[2019-04-15] MEDS ORDERED: Enoxaparin Sodium 40 MG/0.4 ML SYRINGE SC SCH (21:00)
[2019-04-15] MEDS ORDERED: Promethazine HCl 25 MG/ML VIAL SLOW IVP PRN (21:01)
[2019-04-15] MEDS ORDERED: Promethazine HCl 25 MG/ML VIAL IM PRN (21:01)
[2019-04-15] MEDS ORDERED: Ondansetron HCl/PF 4 MG/2 ML Vial IVP PRN (21:01)
[2019-04-16] MEDS: Acetaminophen 500 MG TAB PO PRN ×2 (02:18→08:14)
[2019-04-16] MEDS: traMADol HCl 50 MG TAB PO PRN ×2 (05:25→12:42)
[2019-04-16] MEDS: Famotidine 20 MG TAB PO SCH (08:14)
[2019-04-16] MEDS ORDERED: Zolpidem Tartrate 5 MG TAB PO PRN (08:22)
[2019-04-16] MEDS ORDERED: Cepastat Lozenges 1 LOZ PO PRN (08:22)
[2019-04-16] MEDS ORDERED: Sodium Chloride 0.65% Nasal 44 ML BOT EA NARE PRN (08:22)
[2019-04-16] MEDS ORDERED: Diabetic Tussin 200 MG/10 ML UDCUP PO PRN (08:22)
[2019-04-16] MEDS ORDERED: Senokot S 8.6-50 MG TAB PO PRN (08:22)
[2019-04-16] MEDS ORDERED: Artificial Tears 18 DROP/0.9 ML EA EYE PRN (08:22)
[2019-04-16] MEDS ORDERED: Polyethylene Glycol 3350 17 GM Packet PO SCH (09:00)
--- NOTE | 2019-04-16 09:07 | OP ---
DATE OF PROCEDURE: 03/15/2019 PREOPERATIVE DIAGNOSIS: Left foot dorsum mass, possible abscess. POSTOPERATIVE DIAGNOSIS: Hematoma. PROCEDURE: Evacuation of hematoma, dorsum, left foot. ANESTHESIA: TIVA, local 0.5% Marcaine with epinephrine 30 mL mixed with 2% Xylocaine 10 mL. DESCRIPTION OF PROCEDURE: The patient was taken to the operating room where under intravenous sedation, her left foot was prepared with ChloraPrep and draped in routine fashion. Through the previously open wound, hematoma was evacuated. Wound irrigated. There was no infection. No purulence. Subcutaneous tissue was approximated with 3-0 Monocryl, skin with subdermal suture of 4-0 nylon. Sterile dressing applied. The patient tolerated the procedure well. Job ID: [id number]
--- NOTE | 2019-04-16 09:25 | PRG ---
DATE OF SERVICE: 04/16/2019 SUBJECTIVE: Ms. Cadena is doing well today. Her dressings are intact. I have explained her that she had a hematoma in her foot. This was evacuated in the operating room and the wound was closed. At this point, the patient will be discharged home. Antibiotics are not indicated. The patient should weightbear as tolerated. She should follow up in my office in a week and a half for suture removal. She can remove her dressings in the next 1 or 2 days and wash the wound with soap and water, patted dry, leave it open or place a Band-Aid or cover with an Sanjay wrap per her comfort. She has a postoperative shoe for use as needed. The patient can be discharged home in my opinion with [id number] Tylenol and ibuprofen and p.r.n. Ultram for pain. No antibiotics are indicated. Job ID: [id number]
--- NOTE | 2019-04-16 11:03 | PDOC.PN ---
- Subjective Encounter Start Date: 04/16/19 Encounter Start Time: 09:10 Patient seen and examined. No new complaints. No overnight events - Objective MAR Reviewed: Yes Vital Signs & Weight: Vital Signs (12 hours) Temp Pulse Resp BP BP Pulse Ox 04/16/19 08:00 98.8 F 79 18 111/50 L 97 04/16/19 04:00 98.8 F 67 16 118/67 96 04/16/19 00:00 98.9 F 81 16 116/70 99 Weight Admit Weight 151 lb 11.2 oz Weight 151 lb 11.2 oz I&O: 04/15/19 04/16/19 04/17/19 06:59 06:59 06:59 Intake Total 3150 680 Output Total 850 Balance 3150 -170 Result Diagrams: 04/14/19 06:19 04/14/19 06:19 Additional Labs: Accuchecks 04/16/19 04/15/19 04/15/19 04:40 23:17 20:38 POC Glucose 87 96 86 04/15/19 04/15/19 16:57 10:56 POC Glucose 72 107 Phys Exam - Physical Examination Constitutional: NAD HEENT: PERRLA, moist MMs, sclera anicteric Neck: no JVD, supple Respiratory: no wheezing, no rales, no rhonchi Cardiovascular: RRR, no significant murmur, no rub Gastrointestinal: soft, non-tender, no distention, positive bowel sounds Musculoskeletal: no edema, pulses present wound covered with dressing Neurological: non-focal, normal sensation, moves all 4 limbs Psychiatric: normal affect, A&O x 3 Skin: no rash, normal turgor Dx/Plan (1) Cellulitis of left foot Code(s): L03.116 - CELLULITIS OF LEFT LOWER LIMB Status: Acute (2) Lactic acidosis Code(s): E87.2 - ACIDOSIS Status: Acute (3) Anemia, normocytic normochromic Code(s): D64.9 - ANEMIA, UNSPECIFIED Status: Chronic (4) COPD (chronic obstructive pulmonary disease) Status: Chronic (5) Chronic a-fib Code(s): I48.2 - CHRONIC ATRIAL FIBRILLATION Status: Chronic (6) Diabetes type 2, controlled Code(s): E11.9 - TYPE 2 DIABETES MELLITUS WITHOUT COMPLICATIONS Status: Chronic Qualifiers: Diabetes mellitus fci insulin use: without fci use Diabetes mellitus complication status: without complication Qualified Code(s): E11.9 - Type 2 diabetes mellitus without complications (7) GERD (gastroesophageal reflux disease) Code(s): K21.9 - GASTRO-ESOPHAGEAL REFLUX DISEASE WITHOUT ESOPHAGITIS Status: Chronic Qualifiers: Esophagitis presence: with esophagitis Qualified Code(s): K21.0 - Gastro- esophageal reflux disease with esophagitis (8) Glaucoma Code(s): H40.9 - UNSPECIFIED GLAUCOMA Status: Chronic Qualifiers: Glaucoma type: unspecified type Laterality: left (9) HTN (hypertension) Code(s): I10 - ESSENTIAL (PRIMARY) HYPERTENSION Status: Chronic Qualifiers: Hypertension type: essential hypertension Qualified Code(s): I10 - Essential (primary) hypertension (10) Hypothyroidism Code(s): E03.9 - HYPOTHYROIDISM, UNSPECIFIED Status: Chronic Qualifiers: Hypothyroidism type: unspecified Qualified Code(s): E03.9 - Hypothyroidism , unspecified - Plan cont current plan of care * medication reviewed as below * symptomatic treatment * see discharge alexander. Review of Systems - Review of Systems ENT: negative: Ear Pain, Ear Discharge, Nose Pain, Nose Discharge, Nose Congestion, Mouth Pain, Mouth Swelling, Throat Pain, Throat Swelling, Other Respiratory: negative: Cough, Dry, Shortness of Breath, Hemoptysis, SOB with Excertion, Pleuritic Pain, Sputum, Wheezing Cardiovascular: negative: chest pain, palpitations, orthopnea, paroxysmal nocturnal dyspnea, edema, light headedness, other Gastrointestinal: negative: Nausea, Vomiting, Abdominal Pain, Diarrhea, Constipation, Melena, Hematochezia, Other Genitourinary: negative: Dysuria, Frequency, Incontinence, Hematuria, Retention , Other Musculoskeletal: negative: Neck Pain, Shoulder Pain, Arm Pain, Back Pain, Hand Pain, Leg Pain, Foot Pain, Other - Medications/Allergies Allergies/Adverse Reactions: Allergies Allergy/AdvReac Type Severity Reaction Status Date / Time azithromycin [From Zithromax] Allergy Verified 11/22/17 19:42 erythromycin base Allergy Verified 11/22/17 19:42 hydralazine Allergy Verified 11/22/17 19:42 hydrochlorothiazide Allergy Verified 11/22/17 19:42 levofloxacin [From Levaquin] Allergy Verified 11/22/17 19:42 Penicillins Allergy Verified 11/22/17 19:42 Quinolones Allergy Verified 11/22/17 19:42 Sulfa (Sulfonamide Allergy Verified 11/22/17 19:42 Antibiotics) Thiazides Allergy Verified 11/22/17 19:42 ibuprofen AdvReac Mild Verified 11/22/17 19:42 Medications: Current Medications Acetaminophen (Tylenol) 1,000 mg PO Q6H PRN PRN Reason: Moderate to Severe Pain (6-10) Last Admin: 04/16/19 08:14 Dose: 1,000 mg Artificial Tears (Tears Naturale) 2 drop EA EYE PRN PRN PRN Reason: Dry Eyes Dextrose/Water (Dextrose 50%) 25 gm SLOW IVP PRN PRN PRN Reason: Hypoglycemia Dextrose/Water (Dextrose 50%) 25 ml SLOW IVP PRN PRN PRN Reason: Hypoglycemia Last Admin: 04/15/19 19:34 Dose: 25 ml Diphenhydramine HCl (Benadryl) 25 mg PO Q6H PRN PRN Reason: Itching & Insomnia Last Admin: 04/15/19 04:59 Dose: 25 mg Enoxaparin Sodium (Lovenox) 40 mg SC 2100 [facility] Last Admin: 04/15/19 22:46 Dose: 40 mg Famotidine (Pepcid) 20 mg PO BID [facility] Last Admin: 04/16/19 08:14 Dose: 20 mg Glucagon (Glucagon) 1 mg IM PRN PRN PRN Reason: Hypoglycemia Guaifenesin (Robitussin Sf) 200 mg PO Q4H PRN PRN Reason: Cough Dextrose/Water (D5w) 1,000 mls @ 0 mls/hr IV .Q0M PRN PRN Reason: Hypoglycemia Ibuprofen (Motrin) 600 mg PO Q6H PRN PRN Reason: Pain Insulin Human Regular (Humulin R) 0 units SC .MILD SLIDING SCALE PRN PRN Reason: Mild Correctional Scale Insulin Human Regular (Humulin R) 0 units SC .BEDTIME SLIDING SC PRN PRN Reason: Bedtime Correctional Scale Ondansetron HCl (Zofran) 4 mg IVP Q6H PRN PRN Reason: Nausea/Vomiting Last Admin: 04/16/19 09:51 Dose: 4 mg Polyethylene Glycol (Miralax) 17 gm PO DAILY [facility] Last Admin: 04/16/19 08:14 Dose: 17 gm Senna/Docusate Sodium (Senokot S) 2 tab PO BID PRN PRN Reason: Constipation Sodium Chloride ([place] Nasal [place] 0.65%) 0 ml EA NARE QIDPRN PRN PRN Reason: Nasal Congestion Throat Lozenges (Cepastat Lozenges) 1 diogenes PO Q2H PRN PRN Reason: Sore Throat Tramadol HCl (Ultram) 50 mg PO Q6H PRN PRN Reason: Pain Tramadol HCl (Ultram) 100 mg PO Q6H PRN PRN Reason: Pain Last Admin: 04/16/19 05:25 Dose: 100 mg Zolpidem Tartrate (Ambien) 5 mg PO HSPRN PRN PRN Reason: Insomnia
--- NOTE | 2019-04-16 13:46 | DIS ---
DATE OF ADMISSION: 04/15/2019 DATE OF DISCHARGE: 04/16/2019 PRIMARY CARE PHYSICIAN: Dr. Peters. DISCHARGE DISPOSITION: Home. PRIMARY DISCHARGE DIAGNOSES: 1. Left foot cellulitis with abscess, status post I and D. 2. Lactic acidosis. SECONDARY DISCHARGE DIAGNOSES: 1. Normocytic normochromic anemia. 2. Chronic atrial fibrillation. 3. Chronic obstructive pulmonary disease. 4. Diabetes type 2. 5. Gastroesophageal reflux disease. 6. Glaucoma. 7. Hypertension. 8. Hypothyroidism. PRIMARY PROCEDURE/OPERATION: I and D was performed by Dr. Nesbitt, radiological investigation. Foot x-ray was negative for any bony involvement. MRI foot was also negative for osteomyelitis. SIGNIFICANT LABORATORY DATA: WBC 4.8, hemoglobin 8.8, and platelet 163. Sodium 136, creatinine 0.79, and calcium 8.2. Urinalysis, unremarkable. Blood culture and urine culture, negative. DISCHARGE MEDICATIONS: 1. Xopenex inhaler one puff q.4 hourly p.r.n. 2. Alphagan ophthalmic drops, right eye b.i.d. 3. The patient will finish clindamycin 150 mg p.o. t.i.d. as directed. 4. Nexium 40 mg p.o. daily. 5. Flonase nasal spray daily. 6. Synthroid 25 mcg p.o. daily. 7. Metformin 500 mg b.i.d. 8. Toprol-XL 50 mg daily. 9. Procardia XL 60 mg b.i.d. 10. Potassium chloride 20 mEq p.o. daily. 11. Xarelto 20 mg p.o. daily. 12. Crestor 10 mg p.o. nightly. 13. Tramadol 50 mg q.4 hourly p.r.n. CONTRAINDICATION: None. CODE STATUS: Full code. INPATIENT PURCHASE PRICE ANALYST: Dr. Nesbitt was consulted while in hospital. TEST RESULTS PENDING ON DISCHARGE: None. ALLERGIES: AZITHROMYCIN, ERYTHROMYCIN, AND HYDRALAZINE. DISCHARGE PLAN: Posthospital, the patient will follow up with primary care physician in one week. The patient will follow up with Dr. Nesbitt in 2 to 3 weeks. HOSPITAL COURSE: A 69-year-old female with above-mentioned medical problem, who was admitted by Huston Rebecca, please see her H and P for further details. The patient was having left lower extremity cellulitis with abscess. She had foot x-ray and subsequently MRI of her left lower extremity, which was negative for any bony involvement. The patient was treated with antibiotic therapy while in the hospital. She was evaluated by Dr. Nesbitt, who did I and D. Dr. Nesbitt was thinking that this patient will not need any IV antibiotic therapy or oral antibiotic therapy upon discharge. The patient was taking clindamycin prior to coming to the hospital, which she will continue and finish therapy. I have seen and examined the patient at bedside today. The patient is medically stable for discharge. General surgery cleared her for discharge as well. She is afebrile. Her pain is well controlled with oral pain medication and she is ambulatory. She has fever blister on her lip, which requires conservative treatment. Overall, the patient is medically stable for discharge today. Job ID: [id number]
[2019-04-16 16:33] VITALS: BP 142/88; TEMP 98.9
== END 2019-04-16 17:20 | disposition home or self-care (01) | DRG 603 ==
LOC: ERS 13:32 → T4-B 17:36 → OBSVTOIN 04-15 09:54
PROVIDERS: ADMIT Family Medicine; ATTEND Family Medicine
PROC: 0H9NXZZ Drainage of Left Foot Skin, External Approach (ICD-10-PCS; principal; 2019-04-15)
PROC: 0JCR0ZZ Extirpation of Matter from Left Foot Subcutaneous Tissue and Fascia, Open Approach (ICD-10-PCS; 2019-04-15)
DX: L03.116 Cellulitis of left lower limb (principal); E87.2 Acidosis; L02.612 Cutaneous abscess of left foot; E11.9 Type 2 diabetes mellitus without complications; M32.9 Systemic lupus erythematosus, unspecified; J44.9 Chronic obstructive pulmonary disease, unspecified; E03.9 Hypothyroidism, unspecified; D63.8 Anemia in other chronic diseases classified elsewhere; I10 Essential (primary) hypertension; M19.90 Unspecified osteoarthritis, unspecified site; I48.2 Chronic atrial fibrillation; E78.5 Hyperlipidemia, unspecified; M10.9 Gout, unspecified; M06.9 Rheumatoid arthritis, unspecified; M79.81 Nontraumatic hematoma of soft tissue; K21.9 Gastro-esophageal reflux disease without esophagitis; H40.9 Unspecified glaucoma; S00.521A Blister (nonthermal) of lip, initial encounter; X58.XXXA Exposure to other specified factors, initial encounter; Z86.19 Personal history of other infectious and parasitic diseases; Z88.1 Allergy status to other antibiotic agents; Z88.0 Allergy status to penicillin; Z79.84 Long term (current) use of oral hypoglycemic drugs; Z90.49 Acquired absence of other specified parts of digestive tract; Z90.710 Acquired absence of both cervix and uterus
CPT/HCPCS: 36415; 36416; 80048; 80053; 80202; 81001; 83605; 85025; 87040; 87086; 93005; 93010; 96365; 96375; A9577; J0131; J0670; J1100; J1650; J2001; J2270; J2405; J2704; J3010; J3370; J3490; Q0163; S0028

== ENCOUNTER 2019-04-25 09:16 | Emergency (ER) | payer MEDICARE, MEDICAID ==
[2019-04-25] MEDS ORDERED: HYDROcodone/Acetaminophen 5/325 mg Tablet ONE (10:25)
[2019-04-25] MEDS ORDERED: Acetaminophen 325 MG TAB ONE (10:25)
--- NOTE | 2019-04-25 10:34 | ULT ---
RIGHT LOWER EXTREMITY VENOUS DUPLEX STUDY: INDICATION: Right lower extremity pain and edema. FINDINGS: Deep veins of the right lower extremity evaluated with color Doppler, spectral analysis, and compress ion. These veins show normal blood flow and compression. No evidence of DVT. IMPRESSION: No evidence of right lower extremity deep vein thrombosis. POS: OFF
== END 2019-04-25 11:50 | disposition home or self-care (01) ==
LOC: ERS 09:16
DX: M25.561 Pain in right knee (principal); I48.91 Unspecified atrial fibrillation; I10 Essential (primary) hypertension; M10.9 Gout, unspecified; M06.9 Rheumatoid arthritis, unspecified; J44.9 Chronic obstructive pulmonary disease, unspecified; M32.9 Systemic lupus erythematosus, unspecified; Z79.84 Long term (current) use of oral hypoglycemic drugs; Z79.899 Other long term (current) drug therapy

== ENCOUNTER 2019-04-28 10:11 | Outpatient (CLI) | payer MEDICARE, MEDICAID ==
--- NOTE | 2019-04-28 11:31 | ULT ---
Ultrasound extremity nonvascular Limited: HISTORY: Right lower extremity and right knee swelling and pain FINDINGS: The area of swelling and pain is in the midline of the knee superior to the patella. There is an abno rmal heterogeneous hypoechoic focus anterior to the patella appears to be in the midline of the knee overlying the femur. This measures approximately 4.7 cm in craniocaudal dimension, 1.2 cm in AP dimension, and approximately 6 cm in transverse dimension bending over the anterior femur. This is in the expected location of the suprapatellar recess. There is some superficial subcutaneous edema di stal to the knee. IMPRESSION: Abnormal heterogeneous hypoechoic region of abnormality which could well represent a distended suprap atellar recess with a complicated appearance possibly complicated fluid and/or associated synovitis. No evidence for other significant abnormal fluid collection. Follow-up knee MRI is recommended for further assessment.
--- NOTE | 2019-04-28 13:04 | RAD ---
RIGHT KNEE 3 VIEWS: Date: 04/28/19 HISTORY: Knee pain. FINDINGS: Bones appear demineralized. There are moderately severe arthritic changes of the knee. These include prominent patellofemoral degenerative changes and medial compartment narrowing. IMPRESSION: Moderately severe osteoarthritic changes of the knee with a mild joint effusion. POS: C
== END 2019-04-28 10:12 | disposition home or self-care (01) ==
LOC: ULT 10:11
PROVIDERS: ATTEND Family Medicine
DX: M25.561 Pain in right knee (principal); M79.89 Other specified soft tissue disorders; M17.11 Unilateral primary osteoarthritis, right knee; M25.461 Effusion, right knee; R93.6 Abnormal findings on diagnostic imaging of limbs
CPT/HCPCS: 76882

== ENCOUNTER 2019-05-16 14:40 | Outpatient (CLI) | payer MEDICARE, MEDICAID ==
--- NOTE | 2019-05-16 17:05 | MRI ---
MRI OF THE RIGHT KNEE WITHOUT CONTRAST: 05/16/19 INDICATION: Synovitis of the right knee with pain and swelling. COMPARISON: Right knee radiograph dated 04/28/19. FINDINGS: There is a large semimembranosus-medial gastrocnemius popliteal cyst with prominent subcutaneous jessica a overlying the cyst in the medial gastrocnemius suspicious for partial rupture. There is edema prese nt within the medial gastrocnemius head suspicious for changes of a mild gastrocnemius strain. There is moderate osteoarthrosis of the right knee with full thickness articular cartilage thinning i nvolving the patella and posterior medial femoral condyle. The MCL, LCL, PCL, ACL and extensor mechanism are intact. The menisci are intact. There is mild joint effusion. IMPRESSION: 1. Large Sauer's cyst with suspicion for partial rupture. 2. Mild medial gastrocnemius strain. 3. Moderate osteoarthrosis of the right knee. POS: BH
== END 2019-05-16 14:41 | disposition home or self-care (01) ==
LOC: BICMRI 14:40
PROVIDERS: ATTEND Family Medicine
DX: M65.9 Synovitis and tenosynovitis, unspecified (principal); M17.11 Unilateral primary osteoarthritis, right knee; S86.811A Strain of other muscle(s) and tendon(s) at lower leg level, right leg, initial encounter; M71.21 Synovial cyst of popliteal space [Baker], right knee

== ENCOUNTER 2019-05-27 10:19 | Outpatient (CLI) | payer MEDICARE, MEDICAID ==
--- NOTE | 2019-05-27 11:30 | MMO ---
Bilateral MAMMO Bilat Screen [facility]. CLINICAL HISTORY: Patient is 69 years old and is seen for screening. VIEWS: The views performed were: . MAMMOGRAM FINDINGS: There are scattered fibroglandular densities. There are vascular calcifications seen in both breasts. There are no suspicious masses, suspicious calcifications, or new areas of architectural distortion. IMPRESSION: A ROUTINE FOLLOW-UP MAMMOGRAM IN 1 YEAR IS RECOMMENDED. THE RESULTS OF THIS EXAM WERE SENT TO THE PATIENT. ACR BI-RADS Category 2 - Benign finding MAMMOGRAPHY NOTE: 1. A negative mammogram report should not delay a biopsy if a dominant of clinically suspicious mass is present. 2. Approximately 10% to 15% of breast cancers are not detected by mammography. 3. Adenosis and dense breasts may obscure an underlying neoplasm. Reported by: RAVINDRA GRADY MD Electonically Signed: [id number]
== END 2019-05-27 10:20 | disposition home or self-care (01) ==
LOC: BICMAMMO 10:19
PROVIDERS: ATTEND Family Medicine
DX: Z12.31 Encounter for screening mammogram for malignant neoplasm of breast (principal)
CPT/HCPCS: 77063; 77067

== ENCOUNTER 2019-09-22 18:55 | Emergency (ER) | payer MEDICARE, MEDICAID ==
--- NOTE | 2019-09-22 19:39 | RAD ---
Exam:4 views left knee HISTORY: Pain after hitting table this morning. COMPARISON: 01/17/2019 FINDINGS: Moderate tricompartmental degenerative change. No joint effusion. No fracture. Mild bone de mineralization. IMPRESSION: No fracture. Moderate tricompartmental degenerative change.
[2019-09-22] MEDS ORDERED: HYDROcodone/Acetaminophen 5/325 mg Tablet ONE (19:40)
== END 2019-09-22 20:01 | disposition home or self-care (01) ==
LOC: ERS 18:55
DX: M25.562 Pain in left knee (principal); I48.91 Unspecified atrial fibrillation; I10 Essential (primary) hypertension; M19.90 Unspecified osteoarthritis, unspecified site; J44.9 Chronic obstructive pulmonary disease, unspecified; Z79.51 Long term (current) use of inhaled steroids; Z79.899 Other long term (current) drug therapy; Z79.01 Long term (current) use of anticoagulants; W22.8XXA Striking against or struck by other objects, initial encounter

== ENCOUNTER 2019-12-11 20:42 | Inpatient (IN) | payer MEDICARE, MEDICAID ==
[2019-12-11] MEDS ORDERED: Diltiazem 125 MG/25 ML ONE (21:00)
[2019-12-11] MEDS ORDERED: methylPREDNISolone Sod Succ/PF 125 MG/2 ML VIAL ONE (21:10)
[2019-12-11] MEDS ORDERED: Metoclopramide HCl 10 MG/2 ML VIAL ONE (21:10)
[2019-12-11 21:32] LABS: #Lymphocytes 1.1 thou/uL (1.20-3.40); #Monocytes 0.4 thou/uL (0.11-0.59); #Neutrophils 1.9 thou/uL (1.40-6.50); %Basophils 0.9 % (0.0-1.0); %Eosinophils 0.9 % (0.0-10.0); %Lymphocytes 32.7 % (21.0-51.0); %Monocytes 10.5 % (0.0-10.0); Hemoglobin 10.6 g/dL (12.0-16.0); Mean Corpuscular HGB CONC 33.1 g/dL (32.0-36.0); Mean Corpuscular Hemoglobin 25.4 pg (27.0-31.0); Mean Corpuscular Volume 76.7 fL (78.0-98.0); Mean Platelet Volume 9.9 fL (7.4-10.4); Platelet Count 182 thou/uL (130-400); RBC Distribution Width 13.6 % (11.5-14.5); Red Blood Cell (RBC) Count 4.19 mill/uL (4.20-5.40); White Blood Cell (WBC) Count 3.4 thou/uL (4.8-10.8)
[2019-12-11 21:53] LABS: ALT (SGPT) 9 U/L (8-55); AST (SGOT) 16 U/L (5-34); Albumin 3.9 g/dL (3.4-4.8); Alkaline Phosphatase 82 U/L (40-110); Anion Gap 14 mmol/L (10-20); BUN (Urea Nitrogen) 10 mg/dL (9.8-20.1); Bilirubin, Total 0.3 mg/dL (0.2-1.2); Calc. Creatinine Clearance 0 mL/min (70-130); Calcium 9.6 mg/dL (7.8-10.44); Carbon Dioxide 22 mmol/L (23-31); Chloride 104 mmol/L (98-107); Estimated GFR-MDRD 90; Globulin 4.2 g/dL (2.4-3.5); Glucose 118 mg/dL (80-115); Potassium 3.2 mmol/L (3.5-5.1); Protein, Total 8.1 g/dL (6.0-8.3); Sodium 137 mmol/L (136-145)
--- NOTE | 2019-12-11 21:53 | RAD ---
XR Chest 1 View Portable HISTORY: Chest pain COMPARISON: 11/10/2017 FINDINGS: The heart size is at upper limits of normal. The aorta is tortuous The lungs are well expan ded without focal areas of consolidation, pneumothorax or pleural effusions. IMPRESSION: No radiographic evidence of acute cardiopulmonary process.
[2019-12-11] MEDS ORDERED: Potassium Chloride 20 MEQ TAB ONE (22:09)
[2019-12-12] MEDS ORDERED: Ondansetron PF 4 MG/2 ML Vial IVP PRN (00:03)
[2019-12-12] MEDS ORDERED: Senokot S 8.6-50 MG TAB PO PRN (00:03)
[2019-12-12] MEDS ORDERED: Acetaminophen 325 MG TAB PO PRN (00:03)
--- NOTE | 2019-12-12 00:07 | PDOC.HHP ---
Hospitalist HPI - History of Present Illness Palpitations History of Present Illness: 69 yo AAF with history of A.Fib, HTN, COPD presented to ER due to sudden onset of palpitations. She was lying in bed at night at 8 PM when she started experiencing sudden onset palpitations. She also reports cough with white sputum , lightheadedness. No aggravating or relieving factors. No fever, chills. She reports headache, nausea and vomiting, constipation. No diarrhea, burning or pain with urination. She has easy bruising due to her Xarelto. She states getting a steroid and pain shot recently from her PCP. She states that she was on Toprol 50 mg BID which was changed to daily by her wastewater treatment plant chemist a few months ago. No swelling in her legs, weakness. No orthopnea or PND. No abdominal pain. ED Course: Found to have A.Fib with RVR and started on cardizem drip. Hospitalist ROS - Review of Systems All other systems reviewed; all pertinent +/- noted in HPI/Subj Hospitalist History - Past Medical History Source: patient Cardiac: reports: AFIB, HTN Pulmonary: reports: COPD, deep vein thrombosis Gastrointestinal: reports: Other (Hep C s/p treatment) Musculoskeletal: reports: Osteoarthritis Rheumatologic: reports: Gout Endocrine: reports: Hypothyroidism - Past Surgical History Other Surgical History: Foot surgery - Family History Family History: reports: no pertinent history (reviewed) - Social History Smoking Status: Former smoker Tobacco Type: cigarettes Alcohol: reports: None Drugs: reports: none Living Situation: Alone Activity level: uses cane/walker (intermittently) - Exam General Appearance: NAD, awake alert Eye: PERRL, anicteric sclera ENT: normocephalic atraumatic, no oropharyngeal lesions, moist mucosa Neck: supple, symmetric, no JVD, no thyromegaly, no lymphadenopathy, no carotid bruit Heart: no murmur, no gallops, no rubs, normal peripheral pulses, irregular ( tachycardia present) Respiratory: CTAB, no wheezes, no rales, no ronchi, normal chest expansion, no tachypnea, normal percussion Respiratory - other findings: not using accessory muscles Gastrointestinal: soft, non-tender, non-distended, normal bowel sounds, no palpable masses, no hepatomegaly, no splenomegaly Extremities: no cyanosis, no clubbing, no edema Skin: normal turgor, no lesions, no rashes Neurological: cranial nerve grossly intact, normal sensation to touch, no weakness, no focal deficits Musculoskeletal: normal tone, normal strength, no muscle wasting Psychiatric: normal affect, normal behavior, A&O x 3 Hospitalist Results - Labs Result Diagrams: 12/11/19 21:24 12/11/19 21:24 Lab results: WBC 3.4 thou/uL (4.8-10.8) L 12/11/19 21:24 Hgb 10.6 g/dL (12.0-16.0) L 12/11/19 21:24 Hct 32.2 % (36.0-47.0) L 12/11/19 21:24 MCV 76.7 fL (78.0-98.0) L 12/11/19 21:24 Plt Count 182 thou/uL (130-400) 12/11/19 21:24 Neutrophils % 55.0 % (42.0-75.0) 12/11/19 21:24 Sodium 137 mmol/L (136-145) 12/11/19 21:24 Potassium 3.2 mmol/L (3.5-5.1) L 12/11/19 21:24 Chloride 104 mmol/L (98-107) 12/11/19 21:24 Carbon Dioxide 22 mmol/L (23-31) L 12/11/19 21:24 BUN 10 mg/dL (9.8-20.1) 12/11/19 21:24 Creatinine 0.77 mg/dL (0.6-1.1) 12/11/19 21:24 Glucose 118 mg/dL (80-115) H 12/11/19 21:24 Calcium 9.6 mg/dL (7.8-10.44) 12/11/19 21:24 Total Bilirubin 0.3 mg/dL (0.2-1.2) 12/11/19 21:24 AST 16 U/L (5-34) 12/11/19 21:24 ALT 9 U/L (8-55) 12/11/19 21:24 Alkaline Phosphatase 82 U/L (40-110) 12/11/19 21:24 Troponin I Less than 0.010 ng/mL (< 0.028) 12/11/19 21:24 Serum Total Protein 8.1 g/dL (6.0-8.3) 12/11/19 21:24 Albumin 3.9 g/dL (3.4-4.8) 12/11/19 21:24 - EKG Interpretation EKG: Personally reviewed - Sanket.Fib with RVR; Non-specific ST-T changes - Radiology Interpretation Chest x-ray Status: image reviewed by me (Hyperinflation; no consolidation or CP angle blunting present) Hospitalist H&P A/P - Problem (1) Atrial fibrillation with RVR Code(s): I48.91 - UNSPECIFIED ATRIAL FIBRILLATION Status: Acute Assessment and Plan: On cardizem IV Admit to inpatient status. High risk due to risk of lethal arrhythmias Expected to stay at least 2 midnights Increase Toprol XL to 50 mg po BID Cardio consult Cycle cardiac markers Continue Xarelto at home dose (2) COPD (chronic obstructive pulmonary disease) Status: Chronic Qualifiers: COPD type: unspecified COPD Qualified Code(s): J44.9 - Chronic obstructive pulmonary disease, unspecified Assessment and Plan: No wheezing and not in exacerbation Duonebs PRN Continue home nebs (3) HTN (hypertension) Code(s): I10 - ESSENTIAL (PRIMARY) HYPERTENSION Status: Chronic Qualifiers: Hypertension type: essential hypertension Qualified Code(s): I10 - Essential (primary) hypertension Assessment and Plan: Hold HTN meds as the patient is on cardizem drip and risk of hypotension Monitor BP and adjust meds as needed (4) Hypothyroidism Code(s): E03.9 - HYPOTHYROIDISM, UNSPECIFIED Status: Chronic Qualifiers: Hypothyroidism type: acquired Qualified Code(s): E03.9 - Hypothyroidism, unspecified Assessment and Plan: Resume home dose of synthroid Check TSH - Plan Plan: CODE STATUS - FULL CODE Daughter Donna is health care proxy
[2019-12-12] MEDS ORDERED: Diltiazem 125 MG in Sodium Chloride 0.9% 100 ML IVPB SCH (00:15)
[2019-12-12] MEDS ORDERED: Polyethylene Glycol 3350 17 GM Packet PO SCH (00:30)
[2019-12-12] MEDS ORDERED: Metoprolol Tartrate 25 MG TAB ONE (01:38)
[2019-12-12 02:06] LABS: #Basophils 0.1 thou/uL (0.0-0.2); #Lymphocytes 0.8 thou/uL (1.20-3.40); #Monocytes 0.1 thou/uL (0.11-0.59); #Neutrophils 2.8 thou/uL (1.40-6.50); %Basophils 1.7 % (0.0-1.0); %Eosinophils 0.1 % (0.0-10.0); %Lymphocytes 20.2 % (21.0-51.0); %Monocytes 3.2 % (0.0-10.0); %Neutrophils 74.8 % (42.0-75.0); Hemoglobin 10.7 g/dL (12.0-16.0); Mean Corpuscular HGB CONC 33.1 g/dL (32.0-36.0); Mean Corpuscular Hemoglobin 25.4 pg (27.0-31.0); Mean Corpuscular Volume 76.5 fL (78.0-98.0); Mean Platelet Volume 9.7 fL (7.4-10.4); Platelet Count 186 thou/uL (130-400); RBC Distribution Width 13.7 % (11.5-14.5); White Blood Cell (WBC) Count 3.7 thou/uL (4.8-10.8)
[2019-12-12 02:27] LABS: Troponin I 0.018 ng/mL (< 0.028)
[2019-12-12 02:38] LABS: ALT (SGPT) 8 U/L (8-55); AST (SGOT) 14 U/L (5-34); Albumin 3.7 g/dL (3.4-4.8); Alkaline Phosphatase 78 U/L (40-110); Anion Gap 13 mmol/L (10-20); BUN (Urea Nitrogen) 12 mg/dL (9.8-20.1); Bilirubin, Total 0.2 mg/dL (0.2-1.2); Calc. Creatinine Clearance 0 mL/min (70-130); Calcium 9.2 mg/dL (7.8-10.44); Carbon Dioxide 20 mmol/L (23-31); Chloride 110 mmol/L (98-107); Estimated GFR-MDRD 75; Globulin 4.2 g/dL (2.4-3.5); Glucose 218 mg/dL (80-115); Potassium 3.7 mmol/L (3.5-5.1); Protein, Total 7.9 g/dL (6.0-8.3); Sodium 139 mmol/L (136-145)
[2019-12-12 09:30] LABS: Troponin I 0.011 ng/mL (< 0.028)
[2019-12-12] MEDS ORDERED: Levothyroxine Sodium 25 MCG TAB PO SCH (10:30)
--- NOTE | 2019-12-12 12:03 | CON ---
DATE OF CONSULTATION: HISTORY OF PRESENT ILLNESS: The patient is a 69-year-old woman, with a history of atrial fibrillation, who presented with palpitations. The patient has previously undergone a cardiac evaluation including a cardiac catheterization in 2018. She was found to have normal coronary arteries. The patient has a history of paroxysmal atrial fibrillation. She has been maintained on anticoagulation therapy. The patient states recently the patient presented with acute onset of palpitations. The patient denied having any chest discomfort. PAST MEDICAL HISTORY: 1. Atrial fibrillation. 2. Hypothyroidism. 3. Hepatitis C. 4. GE reflux. 5. COPD. 6. Hypertension. PAST SURGICAL HISTORY: Eye surgery, knee surgery, cholecystectomy, , and foot surgery. FAMILY HISTORY: No strong family history of heart disease. SOCIAL HISTORY: Nonsmoker. MEDICATIONS: 1. Prilosec 40 daily. 2. Toprol 50 XL daily. 3. Protonix 40 daily. 4. Nexium 40 daily. 5. Nifedipine 60 XL daily. 6. Rosuvastatin 10 daily. 7. Tramadol 50 daily. 8. KCl 10 daily. REVIEW OF SYSTEMS: Ten-point system otherwise unremarkable. ALLERGIES: AZITHROMYCIN, ERYTHROMYCIN, HYDRALAZINE, HYDROCHLOROTHIAZIDE, SULFA DRUGS, AND PENICILLIN. PHYSICAL EXAMINATION: GENERAL: Well-developed woman, in no acute distress. VITAL SIGNS: With a blood pressure of 120/83 and heart rate is 60. NECK: No jugular venous distention. LUNGS: Clear to auscultation. HEART: Regular rate and rhythm. Normal S1 and S2. ABDOMEN: Nondistended. EXTREMITIES: Showed no edema. VASCULAR: Radial pulses are 2+. LABORATORY RESULTS: White blood cell count 3.7, hemoglobin 10.7, hematocrit 32.1, and her platelets are 186. Sodium 139, potassium 3.7, chloride 110, bicarbonate 20, BUN 12, and creatinine 0.91. Troponin 0.18. TSH 2.34. IMPRESSION AND PLAN: 1. Paroxysmal atrial fibrillation. 2. Hypothyroidism. 3. Hepatitis C. 4. Gastroesophageal reflux. 5. Rheumatoid arthritis. 6. Chronic obstructive pulmonary disease. This patient presents with atrial fibrillation. We will increase the dose of her Toprol to 50 b.i.d. I would also recommend she decrease the dose of her nifedipine. She will continue on Xarelto. We will follow this patient with you through her hospitalizatio Job ID: [id number] [facility]
[2019-12-12 12:39] VITALS: BMI 22.6
[2019-12-12] MEDS ORDERED: Potassium Chloride 20 MEQ TAB PO SCH (14:55)
[2019-12-12] MEDS: metFORMIN 500 MG TAB PO SCH (16:30)
[2019-12-12] MEDS ORDERED: Rivaroxaban 10 MG TAB PO SCH (18:00)
[2019-12-12] MEDS: Brimonidine Tartrate 0.2% Ophth Soln 5 ml Bottle R EYE SCH (20:29)
[2019-12-12] MEDS ORDERED: NIFEdipine XL 60 MG TAB PO SCH (21:00)
[2019-12-12] MEDS ORDERED: PROVENTIL INHALER 6.7 G (200 INHALATIONS) INH PRN (21:19)
[2019-12-12] MEDS: Benzonatate 100 MG CAP PO PRN (21:26)
[2019-12-13 04:51] LABS: Hemoglobin 9.9 g/dL (12.0-16.0); Mean Corpuscular HGB CONC 32.5 g/dL (32.0-36.0); Mean Platelet Volume 9.3 fL (7.4-10.4); Platelet Count 195 thou/uL (130-400); RBC Distribution Width 13.8 % (11.5-14.5); Red Blood Cell (RBC) Count 3.95 mill/uL (4.20-5.40); White Blood Cell (WBC) Count 3.9 thou/uL (4.8-10.8)
[2019-12-13 05:11] LABS: Anion Gap 11 mmol/L (10-20); BUN (Urea Nitrogen) 14 mg/dL (9.8-20.1); Calc. Creatinine Clearance 71 mL/min (70-130); Calcium 9.6 mg/dL (7.8-10.44); Carbon Dioxide 24 mmol/L (23-31); Chloride 108 mmol/L (98-107); Estimated GFR-MDRD 88; Glucose 86 mg/dL (80-115); Magnesium 1.9 mg/dL (1.6-2.6); Potassium 4.2 mmol/L (3.5-5.1); Sodium 139 mmol/L (136-145)
[2019-12-13] MEDS: Benzonatate 100 MG CAP PO PRN (05:18)
[2019-12-13 05:40] LABS: Band 1 % (5-11); Elliptocytes MODERATE= 6-15 cells (100X) (0-1/hpf); Lymphocytes 32 % (21-51); MDiff Complete? YES; Monocytes 7 % (0-10); Neutrophil 60 % (42-75); Platelet Morphology Comment Appears Adequate
[2019-12-13] MEDS: Brimonidine Tartrate 0.2% Ophth Soln 5 ml Bottle R EYE SCH (08:53)
[2019-12-13] MEDS: metFORMIN 500 MG TAB PO SCH (08:53)
[2019-12-13] MEDS ORDERED: Non-Formulary Item 1 EACH (Esomeprazole Magnesium [Nexium 24hr] 40 MG) PO SCH (09:00)
[2019-12-13] MEDS ORDERED: Levothyroxine Sodium 25 MCG TAB PO SCH ×2 (09:00)
[2019-12-13] MEDS ORDERED: NIFEdipine XL 30 MG TAB PO SCH (09:00)
[2019-12-13 09:06] VITALS: BP 160/78; TEMP 97.4
[2019-12-13 09:56] LABS: Platelet Count 204 thou/uL (130-400)
--- NOTE | 2019-12-14 02:27 | DIS ---
DATE OF ADMISSION: 12/12/2019 DATE OF DISCHARGE: 12/13/2019 PRIMARY CARE PROVIDER: Dora Peters MD DISCHARGE DIAGNOSES: 1. Atrial fibrillation with rapid ventricular response. 2. Hypokalemia. CONDITION OF PATIENT ON THE DAY OF DISCHARGE: Stable. I assessed Ms. Cadena on the day of discharge. She denies any chest pain or shortness of breath. Vital signs are stable. S1 and S2 are heard, regular. Lungs are clear to auscultation bilaterally. DISCHARGE MEDICATIONS: 1. Toprol-XL has been increased to 50 mg 2 times a day. 2. Procardia XL has been decreased to 30 mg daily. Otherwise, no change was made to her pre-admission home medications, which include; 1. Robitussin DM p.r.n. 2. Proventil HFA p.r.n. 3. Alphagan eye drops to right eye 2 times a day. 4. Nexium 40 mg daily. 5. Synthroid 25 mcg daily. 6. Metformin 500 mg 2 times a day. 7. Potassium chloride 20 mEq daily. 8. Rivaroxaban 20 mg daily. HOSPITAL COURSE: Ms. Cadena is a pleasant 69-year-old lady, who was admitted to [facility] on December 12, 2019 for atrial fibrillation with rapid ventricular response. She was treated with intravenous Cardizem. She was found to have a normal TSH. She converted to normal sinus rhythm. She was seen by Cardiology Service. Her metoprolol dose was increased and her nifedipine dose was decreased during this hospitalization. She is being discharged home in a stable condition. On the day of discharge, she has sodium 139, potassium 4.2, creatinine 0.79, and hemoglobin 10.0. CONSULTATIONS DURING THIS HOSPITALIZATION: Cardiology, Dr. Carbajal. POST-ACUTE CARE FOLLOWUP: With primary care provider in [address] Carbajal in 2 weeks. DIET: Diabetic and heart healthy. ACTIVITY: No restrictions. DISCHARGE DESTINATION: Home. TIME SPENT: Total amount of time spent coordinating this discharge: 32 minutes. Job ID: [id number]
--- NOTE | 2019-12-15 20:32 | PQF ---
MUNDO HUDSON DAVID [id number] [facility]-258 [id number] CLINICAL DOCUMENTATION CLARIFICATION FORM: POST DISCHARGE Addendum to original discharge summary date: ____ Late entry note date: __ DATE: 12/15/2019 ATTN: Adebayo Bourne Please exercise your independent, professional judgment in responding to the clarification form. Clinical indicators are provided on the bottom of this form for your review. Please check appropriate box(s): [ ] Tortous aorta clinically significant [ x ] Tortous aorta not clinically significant [ ] Other diagnosis [ ] Unable to determine In addition, please specify: Present on Admission (POA): [ x ] Yes [ ] No [ ] Unable to determine For continuity of documentation, please document condition throughout progress notes and discharge summary. Thank You. CLINICAL INDICATORS - SIGNS / SYMPTOMS / LABS Chest Xray 12/11 "The aorta is tortuous" ED Notes 12/12 "SOB and feeling her heart racing" ED Notes 12/12 "report palpitation" HP 12/12 "irregular heart beat with tachycardia" RISK FACTORS ED Notes 12/12-69 years old female ED Notes 12/12-Afib ED Notes 12/12-HTN ED Notes 12/12-Lupus HP 12/12-Former Smoker TREATMENTS: Collected 12/11-Chest Xray Cardiology Consult-Consult 12/13 Dr. Lester MAR 12/11-Cardizem 125mg IV DEC 21-Lopressor 25mg Oral DEC 21-Nifedipine 30mg Oral (This form is maintained as a part of the permanent medical record) 2014 [employer]. All Rights Reserved Joe [email or web address] [phone] MTDBrant
== END 2019-12-13 12:36 | disposition home or self-care (01) | DRG 310 ==
LOC: ERS 20:42 → ERHOLD 12-12 00:04 → 2NO 12-12 12:42
PROVIDERS: ADMIT Internal Medicine Sleep Medicine; ATTEND Internal Medicine
DX: I48.0 Paroxysmal atrial fibrillation (principal); I10 Essential (primary) hypertension; M10.9 Gout, unspecified; M32.9 Systemic lupus erythematosus, unspecified; J44.9 Chronic obstructive pulmonary disease, unspecified; M06.9 Rheumatoid arthritis, unspecified; E03.9 Hypothyroidism, unspecified; K21.9 Gastro-esophageal reflux disease without esophagitis; E87.6 Hypokalemia; Z86.19 Personal history of other infectious and parasitic diseases; Z90.49 Acquired absence of other specified parts of digestive tract; Z90.710 Acquired absence of both cervix and uterus; Z88.1 Allergy status to other antibiotic agents; Z88.5 Allergy status to narcotic agent; Z88.0 Allergy status to penicillin; Z88.2 Allergy status to sulfonamides; Z88.8 Allergy status to other drugs, medicaments and biological substances; Z79.01 Long term (current) use of anticoagulants; Z79.51 Long term (current) use of inhaled steroids; Z79.899 Other long term (current) drug therapy; Z86.718 Personal history of other venous thrombosis and embolism; Z87.891 Personal history of nicotine dependence
CPT/HCPCS: 36415; 36416; 71045; 80048; 80053; 83036; 83735; 84439; 84443; 84484; 85025; 93005; 96365; 96366; 96368; 96375; J2765; J2930; J3490

== ENCOUNTER 2020-02-26 17:42 | Emergency (ER) | payer MEDICARE, OTHER ==
--- NOTE | 2020-02-26 18:51 | RAD ---
LEFT SHOULDER THREE VIEW: 02/26/20 HISTORY: Pain. COMPARISON: None. FINDINGS: No fracture. No malalignment. Left sided ribs are intact. Mild reversed shape S-shaped scoliosis of t he thoracic spine. IMPRESSION: No acute osseous abnormality. POS: HOME
[2020-02-26] MEDS ORDERED: HYDROcodone/Acetaminophen 10/325 mg Tablet ONE (19:14)
[2020-02-26] MEDS ORDERED: Acetaminophen 325 MG TAB ONE (19:23)
--- NOTE | 2020-02-26 19:38 | RAD ---
RADIOGRAPH CHEST 1 VIEW: 02/26/20 HISTORY: 70-year-old female with fever. FINDINGS: There are no air space densities, pulmonary edema, pneumothorax, or cardiomegaly. The lateral costop hrenic angles are sharp. IMPRESSION: No acute cardiopulmonary findings. jn [] POS: JIN
== END 2020-02-26 20:00 | disposition home or self-care (01) ==
LOC: ERS 17:42
DX: S46.912A Strain of unspecified muscle, fascia and tendon at shoulder and upper arm level, left arm, initial encounter (principal); I48.91 Unspecified atrial fibrillation; I10 Essential (primary) hypertension; M10.9 Gout, unspecified; M19.90 Unspecified osteoarthritis, unspecified site; M06.9 Rheumatoid arthritis, unspecified; J44.9 Chronic obstructive pulmonary disease, unspecified; M32.9 Systemic lupus erythematosus, unspecified; Z79.01 Long term (current) use of anticoagulants; Z79.899 Other long term (current) drug therapy; X50.9XXA Other and unspecified overexertion or strenuous movements or postures, initial encounter
CPT/HCPCS: 71045

== ENCOUNTER 2020-05-14 10:07 | Emergency (ER) | payer MEDICARE, OTHER ==
--- NOTE | 2020-05-14 11:12 | RAD ---
Chest one view HISTORY: Fall. Chest injury. COMPARISON: 02/26/2020. FINDINGS: Cardiac silhouette is magnified by projection. Pulmonary vasculature is unremarkable. Mediastinum is midline. No lobar consolidation or evidence of pneumothorax. 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 IMPRESSION : No active cardiopulmonary abnormalities are demonstrated.
--- NOTE | 2020-05-14 11:14 | RAD ---
Left middle finger 2 views HISTORY: Fall. Injury. FINDINGS: Joint spaces are preserved. Subtle cortical irregularity posteriorly at the midportion dist al phalanx on the lateral view may represent a vascular groove or an old injury. No significant overlying soft tissue swelling or laceration. IMPRESSION : No acute osseous abnormalities are demonstrated.
== END 2020-05-14 11:23 | disposition home or self-care (01) ==
LOC: ERS 10:07
DX: S20.212A Contusion of left front wall of thorax, initial encounter (principal); S60.032A Contusion of left middle finger without damage to nail, initial encounter; I48.91 Unspecified atrial fibrillation; I10 Essential (primary) hypertension; M10.9 Gout, unspecified; Z79.899 Other long term (current) drug therapy; Z79.01 Long term (current) use of anticoagulants; W19.XXXA Unspecified fall, initial encounter
CPT/HCPCS: 71045; 93005

== ENCOUNTER 2020-06-30 13:50 | Emergency (ER) | payer MEDICARE, OTHER ==
--- NOTE | 2020-07-03 13:07 | EKG ---
Test Reason : Blood Pressure : / mmHG Vent. Rate : 087 BPM Atrial Rate : 087 BPM P-R Int : 000 ms QRS Dur : 080 ms QT Int : 360 ms P-R-T Axes : 000 -26 151 degrees QTc Int : 433 ms Sinus rhythm Low voltage Confirmed by LUZMA BOWERS ([id number]), index editor KARISHMA MASON ([id number]) on 07/03/2020 1:07:19 PM Referred By: Confirmed By:LUZMA Guo
== END 2020-06-30 14:38 | disposition home or self-care (01) ==
LOC: ERS 13:50
DX: R00.2 Palpitations (principal); I10 Essential (primary) hypertension; M10.9 Gout, unspecified; M06.9 Rheumatoid arthritis, unspecified; J44.9 Chronic obstructive pulmonary disease, unspecified; M32.9 Systemic lupus erythematosus, unspecified; Z79.899 Other long term (current) drug therapy
CPT/HCPCS: 93005

== ENCOUNTER 2020-08-16 09:49 | Outpatient (CLI) | payer MEDICARE, OTHER ==
--- NOTE | 2020-08-16 11:21 | BD ---
DEXA BONE DENSITY STUDY: Date: 08/16/2020 HISTORY: Osteopenia after menopause. COMPARISON: None. FINDINGS: Lumbar Spine: BMD (g/cm2) L1 0.828 T-Score: -1.5 Z-Score: 0.3 L2 0.915 T-Score: -1.0 Z-Score: 0.2 L3 0.852 T-Score: -2.1 Z-Score: -0.8 L4 0.925 T-Score: -1.2 Z-Score: 0.1 L1-L4 0.882 T-Score: -1.5 Z-Score: -0.2 Left Femoral Neck: 0.627 T-Score: -2.0 Z-Score: -0.9 Total Femur: 0.786 T-Score: -1.3 Z-Score: -0.5 10 YEAR FRACTURE RISK: Major osteoporotic fracture: 6.7% Hip fracture: 1.2% WHO Classification: Osteopenia. IMPRESSION: Osteopenia with fracture risk as above. POS: HOME
== END 2020-08-16 09:50 | disposition home or self-care (01) ==
LOC: BICMAMMO 09:49
PROVIDERS: ATTEND Family Medicine
DX: M85.89 Other specified disorders of bone density and structure, multiple sites (principal)
CPT/HCPCS: 77080

== ENCOUNTER 2020-11-26 09:19 | Outpatient (CLI) | payer MEDICARE, OTHER ==
--- NOTE | 2020-11-26 11:47 | RAD ---
THORACIC SPINE 3 VIEWS: Date: 11/26/2020 HISTORY: Back pain. FINDINGS: Mild anterior wedging of mid thoracic vertebra, probably T9, with loss of anterior height in the 10-1 5% range. The other thoracic vertebra maintain normal height and alignment. Mild degenerative change. Slight curvature to the right in the lower thoracic spine in the AP projection. IMPRESSION: Mild anterior wedging of T9. Mild degenerative changes. POS: AGW
--- NOTE | 2020-11-26 11:48 | RAD ---
LUMBAR SPINE 2 VIEWS: Date: 11/26/2020 HISTORY: Back pain. FINDINGS: Slight curvature to the left in the AP projection. The lumbar vertebra maintain height and alignment on the lateral view. Mild degenerative spurring. Mild to moderate facet hypertrophy. Disc spaces are preserved. No evidence of spondylolisthesis. IMPRESSION: Mild to moderate degenerative changes. POS: AGW
== END 2020-11-26 09:20 | disposition home or self-care (01) ==
LOC: BICRAD 09:19
PROVIDERS: ATTEND Family Medicine
DX: M54.5 Low back pain (principal); M54.6 Pain in thoracic spine; M47.816 Spondylosis without myelopathy or radiculopathy, lumbar region; M47.814 Spondylosis without myelopathy or radiculopathy, thoracic region
CPT/HCPCS: 72072; 72100

== ENCOUNTER 2022-04-12 17:51 | Inpatient (IN) | payer OTHER, MEDICAID ==
[2022-04-12] MEDS ORDERED: Tranexamic Acid 1,000 MG/10 ML VIAL ONE ×2 (18:12→20:36)
[2022-04-12] MEDS ORDERED: HYDROcodone/Acetaminophen 5/325 mg Tablet ONE ×2 (18:15→20:33)
[2022-04-12] MEDS ORDERED: Lidocaine 1% w/Epinephrine 1:100K 20 ML VIAL ONE (20:17)
[2022-04-12 20:58] LABS: Hemoglobin 10.2 g/dL (12.0-16.0); Mean Corpuscular HGB CONC 31.6 g/dL (32.0-36.0); Mean Corpuscular Hemoglobin 25.6 pg (27.0-31.0); Mean Platelet Volume 8.4 fL (7.4-10.4); Platelet Count 261 thou/uL (130-400); RBC Distribution Width 14.9 % (11.5-14.5); Red Blood Cell (RBC) Count 3.98 mill/uL (4.20-5.40); White Blood Cell (WBC) Count 4.9 thou/uL (4.8-10.8)
[2022-04-12 21:35] LABS: Eosinophils 1 % (0-10); Lymphocytes 32 % (21-51); MDiff Complete? YES; Monocytes 10 % (0-10); Neutrophil 56 % (42-75); Reactive Lymphocytes 1 % (0-10)
[2022-04-12] MEDS ORDERED: Acetaminophen 650 MG Suppository PR PRN (21:52)
[2022-04-12] MEDS ORDERED: Ondansetron ODT 4 MG TAB PO PRN (21:52)
[2022-04-12] MEDS ORDERED: Acetaminophen 325 MG TAB PO PRN (21:52)
[2022-04-12 23:08] LABS: PTT 49.3 sec (22.9-36.1)
[2022-04-12 23:17] LABS: ALT (SGPT) 15 U/L (8-55); AST (SGOT) 29 U/L (5-34); Albumin 4.2 g/dL (3.4-4.8); Alkaline Phosphatase 68 U/L (40-110); Anion Gap 15 mmol/L (10-20); BUN (Urea Nitrogen) 11 mg/dL (9.8-20.1); Bilirubin, Total Less than 0.2 mg/dL (0.2-1.2); Calc. Creatinine Clearance 0 mL/min (70-130); Calcium 9.5 mg/dL (7.8-10.44); Carbon Dioxide 22 mmol/L (23-31); Chloride 108 mmol/L (98-107); Globulin 3.9 g/dL (2.4-3.5); Glucose 129 mg/dL (80-115); Potassium 3.9 mmol/L (3.5-5.1); Protein, Total 8.1 g/dL (5.8-8.1); Sodium 141 mmol/L (136-145)
[2022-04-12 23:20] VITALS: BMI 24.5
[2022-04-12 23:20] LABS: INR-International Normal Ratio 1.7; Prothrombin Time 20.3 sec (12.0-14.7)
[2022-04-12] MEDS ORDERED: Morphine 2 MG/ML VIAL SLOW IVP SCH (23:30)
[2022-04-13 00:17] LABS: Hemoglobin 9.3 g/dL (12.0-16.0)
[2022-04-13] MEDS: Sodium Chloride 0.9% 1,000 ML IV SCH ×3 (01:25→17:46)
[2022-04-13] MEDS: Morphine 4 MG/ML VIAL SLOW IVP PRN ×2 (03:58→07:58)
[2022-04-13 07:29] LABS: Anion Gap 12 mmol/L (10-20); BUN (Urea Nitrogen) 10 mg/dL (9.8-20.1); Calc. Creatinine Clearance 74 mL/min (70-130); Calcium 8.8 mg/dL (7.8-10.44); Carbon Dioxide 24 mmol/L (23-31); Chloride 110 mmol/L (98-107); Glucose 87 mg/dL (80-115); Potassium 3.9 mmol/L (3.5-5.1); Sodium 142 mmol/L (136-145)
[2022-04-13 07:39] LABS: Hemoglobin 8.5 g/dL (12.0-16.0); Mean Corpuscular HGB CONC 30.8 g/dL (32.0-36.0); Mean Corpuscular Hemoglobin 25.2 pg (27.0-31.0); Mean Corpuscular Volume 81.9 fL (78.0-98.0); Mean Platelet Volume 8.5 fL (7.4-10.4); Platelet Count 207 thou/uL (130-400); RBC Distribution Width 14.6 % (11.5-14.5); Red Blood Cell (RBC) Count 3.35 mill/uL (4.20-5.40); White Blood Cell (WBC) Count 3.5 thou/uL (4.8-10.8)
[2022-04-13 08:37] LABS: Band 3 % (5-11); Hypochromia SLIGHT = 6-15 cells (100X) (0-5/hpf); Lymphocytes 44 % (21-51); MDiff Complete? YES; Monocytes 16 % (0-10); Neutrophil 38 % (42-75); Platelet Morphology Comment Appears Adequate; Polychromasia SLIGHT = 2-3 cells (100X) (0-2/hpf)
[2022-04-13] MEDS ORDERED: Senokot 8.6 MG TAB PO SCH (08:45)
[2022-04-13] MEDS ORDERED: traMADol HCl 50 MG TAB PO PRN (08:46)
[2022-04-13] MEDS: Ondansetron PF 4 MG/2 ML Vial IVP PRN (10:08)
[2022-04-13 12:27] LABS: Hemoglobin 8.4 g/dL (12.0-16.0)
[2022-04-13] MEDS: HYDROcodone/Acetaminophen 5/325 mg Tablet PO PRN ×2 (14:43→21:03)
[2022-04-13] MEDS: metFORMIN 500 MG TAB PO SCH (16:17)
[2022-04-13] MEDS ORDERED: diphenhydrAMINE 25 MG CAP PO PRN (17:35)
[2022-04-13 18:08] LABS: Hemoglobin 8.2 g/dL (12.0-16.0)
[2022-04-13] MEDS: Brimonidine Tartrate 0.2% Ophth Soln 5 ml Bottle R EYE SCH (20:01)
[2022-04-13] MEDS: Rosuvastatin 10 MG TAB PO SCH (20:01)
[2022-04-14 00:22] LABS: Hemoglobin 7.7 g/dL (12.0-16.0)
[2022-04-14] MEDS: HYDROcodone/Acetaminophen 5/325 mg Tablet PO PRN ×4 (03:59→22:39)
[2022-04-14] MEDS: Levothyroxine Sodium 25 MCG TAB PO SCH (04:01)
[2022-04-14] MEDS: Sodium Chloride 0.9% 1,000 ML IV SCH ×2 (06:22→16:32)
[2022-04-14] MEDS: Brimonidine Tartrate 0.2% Ophth Soln 5 ml Bottle R EYE SCH ×2 (09:26→20:07)
[2022-04-14] MEDS: metFORMIN 500 MG TAB PO SCH ×2 (09:26→16:31)
[2022-04-14] MEDS ORDERED: Polyethylene Glycol 3350 17 GM Packet PO SCH (10:30)
[2022-04-14 15:37] LABS: Hemoglobin 7.5 g/dL (12.0-16.0)
[2022-04-14] MEDS: Rosuvastatin 10 MG TAB PO SCH (20:05)
[2022-04-15 04:13] LABS: Hemoglobin 7.6 g/dL (12.0-16.0); Mean Corpuscular HGB CONC 31.7 g/dL (32.0-36.0); Mean Corpuscular Hemoglobin 26.3 pg (27.0-31.0); Mean Corpuscular Volume 82.9 fL (78.0-98.0); Mean Platelet Volume 8.2 fL (7.4-10.4); Platelet Count 210 thou/uL (130-400); RBC Distribution Width 14.7 % (11.5-14.5); Red Blood Cell (RBC) Count 2.91 mill/uL (4.20-5.40); White Blood Cell (WBC) Count 4.3 thou/uL (4.8-10.8)
[2022-04-15 04:23] LABS: Anion Gap 13 mmol/L (10-20); BUN (Urea Nitrogen) 9 mg/dL (9.8-20.1); Calc. Creatinine Clearance 69 mL/min (70-130); Calcium 9.3 mg/dL (7.8-10.44); Carbon Dioxide 21 mmol/L (23-31); Chloride 111 mmol/L (98-107); Glucose 81 mg/dL (80-115); Potassium 4.3 mmol/L (3.5-5.1); Sodium 141 mmol/L (136-145)
[2022-04-15] MEDS: Sodium Chloride 0.9% 1,000 ML IV SCH (04:25)
[2022-04-15 04:33] LABS: Band 4 % (5-11); Eosinophils 2 % (0-10); Hypochromia SLIGHT = 6-15 cells (100X) (0-5/hpf); Lymphocytes 47 % (21-51); MDiff Complete? YES; Monocytes 11 % (0-10); Neutrophil 36 % (42-75); Platelet Morphology Comment Appears Adequate
[2022-04-15] MEDS: Levothyroxine Sodium 25 MCG TAB PO SCH (05:54)
[2022-04-15] MEDS: HYDROcodone/Acetaminophen 5/325 mg Tablet PO PRN ×2 (05:54→19:35)
[2022-04-15] MEDS: Brimonidine Tartrate 0.2% Ophth Soln 5 ml Bottle R EYE SCH ×2 (08:10→19:42)
[2022-04-15] MEDS: metFORMIN 500 MG TAB PO SCH ×2 (08:10→16:53)
[2022-04-15] MEDS: Ondansetron PF 4 MG/2 ML Vial IVP PRN (09:32)
[2022-04-15 14:21] LABS: Hemoglobin 7.4 g/dL (12.0-16.0)
[2022-04-15] MEDS ORDERED: Labetalol HCl 100 MG/20 ML VIAL SLOW IVP PRN (15:27)
[2022-04-15] MEDS: Thrombin 5000 UNITS/5 ML VIAL TOP SCH ×2 (18:31→19:42)
[2022-04-15] MEDS: Rosuvastatin 10 MG TAB PO SCH (19:33)
[2022-04-15] MEDS ORDERED: NIFEdipine XL 30 MG TAB PO SCH (21:00)
[2022-04-15] MEDS ORDERED: Non-Formulary Item 1 EACH (Nifedipine [Nifedipine Er] 30 MG Tablet.Er) PO SCH (21:00)
[2022-04-15 21:01] LABS: INR-International Normal Ratio 1.2; Prothrombin Time 14.8 sec (12.0-14.7)
[2022-04-15 21:02] LABS: PTT 38.4 sec (22.9-36.1)
[2022-04-15 21:03] LABS: D-Dimer Test 0.79 *mcg/mL (0.27-0.43)
[2022-04-16] MEDS: Levothyroxine Sodium 25 MCG TAB PO SCH (05:29)
[2022-04-16] MEDS: metFORMIN 500 MG TAB PO SCH (07:56)
[2022-04-16] MEDS: Brimonidine Tartrate 0.2% Ophth Soln 5 ml Bottle R EYE SCH (07:57)
[2022-04-16 09:00] LABS: BUN (Urea Nitrogen) 7 mg/dL (9.8-20.1); Calc. Creatinine Clearance 82 mL/min (70-130); Calcium 8.6 mg/dL (7.8-10.44); Carbon Dioxide 23 mmol/L (23-31); Chloride 106 mmol/L (98-107); Glucose 84 mg/dL (80-115); Potassium 3.4 mmol/L (3.5-5.1); Sodium 140 mmol/L (136-145)
[2022-04-16] MEDS ORDERED: Non-Formulary Item 1 EACH (Nifedipine [Nifedipine Er] 60 MG Tablet.Er) PO SCH (09:00)
[2022-04-16] MEDS ORDERED: NIFEdipine XL 60 MG TAB PO SCH (09:00)
[2022-04-16 09:58] LABS: Anion Gap 14 mmol/L (10-20)
[2022-04-16 10:05] LABS: Band 4 % (5-11); Eosinophils 1 % (0-10); Hemoglobin 7.5 g/dL (12.0-16.0); Lymphocytes 35 % (21-51); MDiff Complete? YES; Mean Corpuscular HGB CONC 32.6 g/dL (32.0-36.0); Mean Corpuscular Volume 82.7 fL (78.0-98.0); Monocytes 6 % (0-10); Neutrophil 54 % (42-75); Platelet Count 186 thou/uL (130-400); Platelet Morphology Comment Appears Adequate; Polychromasia SLIGHT = 2-3 cells (100X) (0-2/hpf); RBC Distribution Width 14.8 % (11.5-14.5); Red Blood Cell (RBC) Count 2.78 mill/uL (4.20-5.40); White Blood Cell (WBC) Count 4.1 thou/uL (4.8-10.8)
[2022-04-16 14:05] VITALS: BP 132/72; TEMP 98.3
== END 2022-04-16 14:53 | disposition home or self-care (01) | DRG 813 ==
LOC: ERS 17:51 → T4-B 21:30 → OBSVTOIN 04-14 16:11
PROVIDERS: ADMIT Internal Medicine; ATTEND Internal Medicine
PROC: 30233N1 Transfusion of Nonautologous Red Blood Cells into Peripheral Vein, Percutaneous Approach (ICD-10-PCS; principal; 2022-04-15)
DX: D66 Hereditary factor VIII deficiency (principal); D62 Acute posthemorrhagic anemia; K91.841 Postprocedural hemorrhage of a digestive system organ or structure following other procedure; D68.32 Hemorrhagic disorder due to extrinsic circulating anticoagulants; Z20.822 Contact with and (suspected) exposure to COVID-19; I10 Essential (primary) hypertension; M06.9 Rheumatoid arthritis, unspecified; M10.9 Gout, unspecified; J44.9 Chronic obstructive pulmonary disease, unspecified; K06.8 Other specified disorders of gingiva and edentulous alveolar ridge; T45.515A Adverse effect of anticoagulants, initial encounter; I48.0 Paroxysmal atrial fibrillation; Z88.6 Allergy status to analgesic agent; Z88.1 Allergy status to other antibiotic agents; Z79.01 Long term (current) use of anticoagulants; Z88.0 Allergy status to penicillin; Z88.8 Allergy status to other drugs, medicaments and biological substances; Z79.899 Other long term (current) drug therapy; Z79.890 Hormone replacement therapy; Z79.82 Long term (current) use of aspirin; Z90.49 Acquired absence of other specified parts of digestive tract; Z98.890 Other specified postprocedural states; Z90.710 Acquired absence of both cervix and uterus; Z83.2 Family history of diseases of the blood and blood-forming organs and certain disorders involving the immune mechanism
CPT/HCPCS: 36415; 36430; 64400; 80048; 80053; 85014; 85018; 85025; 85379; 85610; 85730; 86850; 86900; 86901; 86922; 96374; 96376; G0378; J2270; J2405; J2597; J7050; P9016; U0003; U0005

== ENCOUNTER 2022-04-18 14:14 | Observation (INO) | payer OTHER, MEDICAID ==
[2022-04-18 15:01] LABS: Hemoglobin 9.2 g/dL (12.0-16.0); Mean Corpuscular HGB CONC 32.2 g/dL (32.0-36.0); Mean Corpuscular Hemoglobin 26.9 pg (27.0-31.0); Mean Corpuscular Volume 83.4 fL (78.0-98.0); Mean Platelet Volume 8.1 fL (7.4-10.4); Platelet Count 292 thou/uL (130-400); RBC Distribution Width 16.2 % (11.5-14.5); Red Blood Cell (RBC) Count 3.41 mill/uL (4.20-5.40); White Blood Cell (WBC) Count 5.6 thou/uL (4.8-10.8)
[2022-04-18] MEDS ORDERED: Metoprolol Tartrate 5 MG/5 ML VIAL ONE (15:06)
[2022-04-18 15:11] LABS: PTT 35.8 sec (22.9-36.1); Prothrombin Time 13.4 sec (12.0-14.7)
[2022-04-18 15:35] LABS: Anisocytosis SLIGHT = 6-15 cells (100X) (0-5/hpf); Band 3 % (5-11); Lymphocytes 26 % (21-51); MDiff Complete? YES; Monocytes 8 % (0-10); Neutrophil 63 % (42-75); Ovalocytes SLIGHT = 2-5 cells (100X) (0-1/hpf); Platelet Morphology Comment Appears Adequate; Polychromasia SLIGHT = 2-3 cells (100X) (0-2/hpf)
[2022-04-18 15:53] LABS: ALT (SGPT) 12 U/L (8-55); AST (SGOT) 24 U/L (5-34); Albumin 4.3 g/dL (3.4-4.8); Alkaline Phosphatase 60 U/L (40-110); Anion Gap 18 mmol/L (10-20); BUN (Urea Nitrogen) 7 mg/dL (9.8-20.1); Bilirubin, Total 0.3 mg/dL (0.2-1.2); Calc. Creatinine Clearance 0 mL/min (70-130); Calcium 10.2 mg/dL (7.8-10.44); Carbon Dioxide 22 mmol/L (23-31); Chloride 106 mmol/L (98-107); Estimated GFR 64; Glucose 96 mg/dL (80-115); Potassium 3.7 mmol/L (3.5-5.1); Protein, Total 8.3 g/dL (5.8-8.1); Sodium 142 mmol/L (136-145)
[2022-04-18] MEDS ORDERED: diphenhydrAMINE 25 MG CAP ONE (16:37)
[2022-04-18 18:30] VITALS: BMI 24.4
[2022-04-18 18:40] LABS: Troponin I 0.025 ng/mL (< 0.028)
[2022-04-18] MEDS ORDERED: Ondansetron PF 4 MG/2 ML Vial IVP PRN (19:10)
[2022-04-18] MEDS ORDERED: Acetaminophen 325 MG TAB PO PRN (19:10)
[2022-04-18] MEDS ORDERED: Enoxaparin Sodium 40 MG/0.4 ML SYRINGE SC ONE (20:00)
[2022-04-18] MEDS ORDERED: Dextrose 5% in Water 1,000 ML IV PRN (20:07)
[2022-04-18] MEDS ORDERED: HumaLOG 300 UNITS/3 ML VIAL SC PRN ×2 (20:07)
[2022-04-18] MEDS ORDERED: Dextrose 50% Abboject 50 ML SYRINGE SLOW IVP PRN (20:07)
[2022-04-18] MEDS ORDERED: Enoxaparin Sodium 40 MG/0.4 ML SYRINGE SC SCH (21:00)
[2022-04-18 21:08] LABS: Troponin I 0.027 ng/mL (< 0.028)
[2022-04-18] MEDS ORDERED: Non-Formulary Item 1 EACH (Nifedipine [Nifedipine Er] 30 MG Tablet.Er) PO SCH (21:42)
[2022-04-18] MEDS ORDERED: HYDROcodone/Acetaminophen 5/325 mg Tablet PO PRN (21:42)
[2022-04-18] MEDS ORDERED: Baclofen 10 MG TAB PO PRN (21:42)
[2022-04-18] MEDS ORDERED: Rosuvastatin 10 MG TAB PO SCH (22:30)
[2022-04-18] MEDS ORDERED: NIFEdipine XL 30 MG TAB PO SCH (22:45)
[2022-04-18] MEDS: traMADol HCl 50 MG TAB PO PRN (22:50)
[2022-04-19 05:34] LABS: ALT (SGPT) 10 U/L (8-55); AST (SGOT) 20 U/L (5-34); Albumin 3.6 g/dL (3.4-4.8); Alkaline Phosphatase 53 U/L (40-110); Anion Gap 17 mmol/L (10-20); BUN (Urea Nitrogen) 8 mg/dL (9.8-20.1); Bilirubin, Total 0.3 mg/dL (0.2-1.2); Calc. Creatinine Clearance 73 mL/min (70-130); Calcium 9.2 mg/dL (7.8-10.44); Carbon Dioxide 22 mmol/L (23-31); Chloride 107 mmol/L (98-107); Estimated GFR 79; Globulin 3.7 g/dL (2.4-3.5); Glucose 87 mg/dL (80-115); Potassium 3.9 mmol/L (3.5-5.1); Protein, Total 7.3 g/dL (5.8-8.1); Sodium 142 mmol/L (136-145)
[2022-04-19 05:45] LABS: Band 1 % (5-11); Hemoglobin 8.8 g/dL (12.0-16.0); Hypochromia SLIGHT = 6-15 cells (100X) (0-5/hpf); Lymphocytes 61 % (21-51); MDiff Complete? YES; Mean Corpuscular HGB CONC 31.9 g/dL (32.0-36.0); Mean Corpuscular Hemoglobin 26.9 pg (27.0-31.0); Mean Corpuscular Volume 84.3 fL (78.0-98.0); Mean Platelet Volume 7.5 fL (7.4-10.4); Monocytes 3 % (0-10); Neutrophil 35 % (42-75); Platelet Count 276 thou/uL (130-400); Platelet Morphology Comment Appears Adequate; Red Blood Cell (RBC) Count 3.26 mill/uL (4.20-5.40); White Blood Cell (WBC) Count 5.8 thou/uL (4.8-10.8)
[2022-04-19] MEDS ORDERED: Levothyroxine Sodium 25 MCG TAB PO SCH (06:00)
[2022-04-19] MEDS ORDERED: metFORMIN 500 MG TAB PO SCH (08:00)
[2022-04-19] MEDS: traMADol HCl 50 MG TAB PO PRN (08:35)
[2022-04-19] MEDS ORDERED: Multivitamin W/ Minerals 1 TAB PO SCH (09:00)
[2022-04-19] MEDS ORDERED: NIFEdipine XL 60 MG TAB PO SCH (09:00)
[2022-04-19] MEDS ORDERED: Enoxaparin Sodium 40 MG/0.4 ML SYRINGE SC SCH (09:00)
[2022-04-19 11:57] VITALS: BP 124/67; TEMP 98.1
[2022-04-19] MEDS ORDERED: Rosuvastatin 10 MG TAB PO SCH (21:00)
== END 2022-04-19 12:21 | disposition home or self-care (01) ==
LOC: ERS 14:14 → 2SW 16:23
PROVIDERS: ADMIT Internal Medicine; ATTEND Internal Medicine
DX: I48.91 Unspecified atrial fibrillation (principal); E03.9 Hypothyroidism, unspecified; E11.9 Type 2 diabetes mellitus without complications; E78.5 Hyperlipidemia, unspecified; I10 Essential (primary) hypertension; J44.9 Chronic obstructive pulmonary disease, unspecified; Z20.822 Contact with and (suspected) exposure to COVID-19; Z79.84 Long term (current) use of oral hypoglycemic drugs; Z79.890 Hormone replacement therapy; Z79.899 Other long term (current) drug therapy; Z88.1 Allergy status to other antibiotic agents; Z88.0 Allergy status to penicillin; Z88.6 Allergy status to analgesic agent
CPT/HCPCS: 71045; 80053; 82962 ×2; 84484 ×2; 85025; 85610; 85730; 86850; 86900; 86901; 86920; 86922; 93005; 96372; 96374; 99285; G0378 ×3; U0003; U0005; 36415; 36416; 84443; J1650

== ENCOUNTER 2022-05-20 16:20 | Emergency (ER) | payer OTHER, MEDICAID ==
[2022-05-20 16:55] LABS: Bilirubin Negative (Negative); Blood, Urine Negative (Negative); Clarity Clear (Clear); Glucose, Urine (Dipstick) Normal (Negative); Ketone, Urine Negative (Negative); Leukocyte Negative Leu/uL (Negative); Nitrite Negative (Negative); Protein, Urine (Dipstick) Negative (Neg-Trace); Specific Gravity, Urine 1.004 (1.002-1.036); Urobilinogen Normal mg/dL (Less than 2)
[2022-05-20 17:03] LABS: #Lymphocytes 1.7 thou/uL (1.20-3.40); #Monocytes 0.5 thou/uL (0.11-0.59); #Neutrophils 2.4 thou/uL (1.40-6.50); %Eosinophils 0.6 % (0.0-10.0); %Lymphocytes 36.8 % (21.0-51.0); %Neutrophils 51.5 % (42.0-75.0); Hemoglobin 9.7 g/dL (12.0-16.0); Mean Corpuscular HGB CONC 31.9 g/dL (32.0-36.0); Mean Corpuscular Hemoglobin 25.7 pg (27.0-31.0); Mean Corpuscular Volume 80.7 fL (78.0-98.0); Mean Platelet Volume 8.6 fL (7.4-10.4); Platelet Count 270 thou/uL (130-400); RBC Distribution Width 14.9 % (11.5-14.5); Red Blood Cell (RBC) Count 3.76 mill/uL (4.20-5.40); White Blood Cell (WBC) Count 4.6 thou/uL (4.8-10.8)
[2022-05-20 17:23] LABS: ALT (SGPT) 11 U/L (8-55); AST (SGOT) 28 U/L (5-34); Albumin 4.1 g/dL (3.4-4.8); Alkaline Phosphatase 79 U/L (40-110); Anion Gap 17 mmol/L (10-20); BUN (Urea Nitrogen) 25 mg/dL (9.8-20.1); Bilirubin, Total 0.2 mg/dL (0.2-1.2); Calc. Creatinine Clearance 0 mL/min (70-130); Calcium 9.5 mg/dL (7.8-10.44); Carbon Dioxide 19 mmol/L (23-31); Chloride 106 mmol/L (98-107); Estimated GFR 57; Globulin 4.1 g/dL (2.4-3.5); Glucose 100 mg/dL (80-115); Magnesium 1.9 mg/dL (1.6-2.6); Potassium 3.9 mmol/L (3.5-5.1); Protein, Total 8.2 g/dL (5.8-8.1); Sodium 138 mmol/L (136-145)
[2022-05-20 17:34] LABS: SARS-CoV-2 NAA Rapid Test Not Detected (NotDetected)
== END 2022-05-20 19:57 | disposition home or self-care (01) ==
LOC: ERS 16:20
DX: I48.91 Unspecified atrial fibrillation (principal); I10 Essential (primary) hypertension; J44.9 Chronic obstructive pulmonary disease, unspecified; M10.9 Gout, unspecified; Z20.822 Contact with and (suspected) exposure to COVID-19; Z79.01 Long term (current) use of anticoagulants; Z79.899 Other long term (current) drug therapy
CPT/HCPCS: 71045; 80053; 81003; 83735; 83880; 84484; 85025; 93005; U0002; 36415

== ENCOUNTER 2023-01-22 11:49 | Emergency (ER) | payer OTHER ==
[2023-01-22 14:38] LABS: Hemoglobin 11.5 g/dL (12.0-16.0); Mean Corpuscular HGB CONC 31.4 g/dL (32.0-36.0); Mean Corpuscular Hemoglobin 25.1 pg (27.0-31.0); Mean Corpuscular Volume 79.7 fl (78.0-98.0); Mean Platelet Volume 8.8 fL (7.4-10.4); Platelet Count 188 10x3/uL (130-400); RBC Distribution Width 14.5 % (11.5-14.5); Red Blood Cell (RBC) Count 4.59 mill/uL (4.20-5.40); White Blood Cell (WBC) Count 3.2 10x3/uL (4.8-10.8)
[2023-01-22 14:52] LABS: Anion Gap 12 mmol/L (10-20); BUN (Urea Nitrogen) 19 mg/dL (9.8-20.1); CRP (Inflammatory) Less than 0.50 mg/dL (= or < 0.5); Calc. Creatinine Clearance 0 mL/min (70-130); Calcium 9.8 mg/dL (7.8-10.44); Carbon Dioxide 26 mmol/L (23-31); Chloride 107 mmol/L (98-107); Estimated GFR 69; Glucose 80 mg/dL (83-110); Potassium 3.6 mmol/L (3.5-5.1); Sodium 141 mmol/L (136-145)
[2023-01-22 14:59] LABS: Eosinophils 10 % (0-10); Hypochromia SLIGHT = 6-15 cells (100X) (0-5/hpf); Lymphocytes 49 % (21-51); MDiff Complete? YES; Monocytes 5 % (0-10); Neutrophil 34 % (42-75); Ovalocytes SLIGHT = 2-5 cells (100X) (0-1/hpf); Platelet Morphology Comment Appears Adequate; Polychromasia SLIGHT = 2-3 cells (100X) (0-2/hpf); Tear Drops SLIGHT = 2-5 cells (100X) (0-1/hpf)
== END 2023-01-22 16:34 | disposition home or self-care (01) ==
LOC: ERS 11:49
DX: M10.9 Gout, unspecified (principal); D72.819 Decreased white blood cell count, unspecified; I10 Essential (primary) hypertension; J44.9 Chronic obstructive pulmonary disease, unspecified
CPT/HCPCS: 36415; 80048; 85025; 85652; 86140

== ENCOUNTER 2023-02-04 23:15 | Emergency (ER) | payer OTHER ==
[2023-02-04 23:47] LABS: #Basophils 0.1 thou/uL (0.0-0.2); #Eosinphils 0.2 thou/uL (0.0-0.7); #Lymphocytes 2.5 thou/uL (1.20-3.40); #Monocytes 0.6 thou/uL (0.11-0.59); #Neutrophils 1.7 thou/uL (1.40-6.50); %Basophils 1.2 % (0.0-1.0); %Eosinophils 3.7 % (0.0-10.0); %Lymphocytes 49.7 % (21.0-51.0); %Monocytes 12.2 % (0.0-10.0); %Neutrophils 33.3 % (42.0-75.0); Hemoglobin 12.4 g/dL (12.0-16.0); Mean Corpuscular HGB CONC 33.2 g/dL (32.0-36.0); Mean Corpuscular Hemoglobin 26.3 pg (27.0-31.0); Mean Corpuscular Volume 79.3 fl (78.0-98.0); Mean Platelet Volume 8.6 fL (7.4-10.4); Platelet Count 233 10x3/uL (130-400); White Blood Cell (WBC) Count 5.1 10x3/uL (4.8-10.8)
[2023-02-04] MEDS ORDERED: Metoprolol Tartrate 5 MG/5 ML VIAL ONE (23:49)
[2023-02-05 00:11] LABS: ALT (SGPT) 17 U/L (8-55); AST (SGOT) 26 U/L (5-34); Albumin 4.4 g/dL (3.4-4.8); Alkaline Phosphatase 74 U/L (40-110); Anion Gap 17 mmol/L (10-20); BUN (Urea Nitrogen) 19 mg/dL (9.8-20.1); Bilirubin, Total 0.3 mg/dL (0.2-1.2); Calc. Creatinine Clearance 0 mL/min (70-130); Calcium 10.1 mg/dL (7.8-10.44); Carbon Dioxide 19 mmol/L (23-31); Chloride 108 mmol/L (98-107); Estimated GFR 57; Globulin 3.6 g/dL (2.4-3.5); Glucose 137 mg/dL (83-110); Potassium 3.4 mmol/L (3.5-5.1); Sodium 141 mmol/L (136-145)
[2023-02-05] MEDS ORDERED: Potassium Chloride 20 MEQ TAB ONE (01:55)
== END 2023-02-05 02:05 | disposition home or self-care (01) ==
LOC: ERS 23:15
DX: I48.0 Paroxysmal atrial fibrillation (principal)
CPT/HCPCS: 36415; 71045; 80053; 83880; 84484; 85025; 93005

== ENCOUNTER 2023-02-05 07:58 | Emergency (ER) | payer OTHER ==
[2023-02-05] MEDS ORDERED: Metoprolol Tartrate 25 MG TAB ONE (08:23)
[2023-02-05] MEDS ORDERED: Metoprolol Tartrate 5 MG/5 ML VIAL ONE ×2 (08:23→08:25)
[2023-02-05] MEDS ORDERED: Aspirin Chewable 81 MG TAB ONE (08:41)
[2023-02-05 09:05] LABS: Hemoglobin 11.7 g/dL (12.0-16.0); Mean Corpuscular HGB CONC 31.2 g/dL (32.0-36.0); Mean Corpuscular Hemoglobin 24.4 pg (27.0-31.0); Mean Corpuscular Volume 78.1 fl (78.0-98.0); Mean Platelet Volume 9.4 fL (7.4-10.4); Platelet Count 205 10x3/uL (130-400); RBC Distribution Width 15.2 % (11.5-14.5); Red Blood Cell (RBC) Count 4.82 mill/uL (4.20-5.40); White Blood Cell (WBC) Count 4.1 10x3/uL (4.8-10.8)
[2023-02-05 09:23] LABS: Eosinophils 2 % (0-10); Hypochromia SLIGHT = 6-15 cells (100X) (0-5/hpf); Lymphocytes 42 % (21-51); MDiff Complete? YES; Monocytes 9 % (0-10); Neutrophil 43 % (42-75); Platelet Morphology Comment Appears Adequate; Polychromasia SLIGHT = 2-3 cells (100X) (0-2/hpf); Reactive Lymphocytes 2 % (0-10)
[2023-02-05 09:24] LABS: ALT (SGPT) 17 U/L (8-55); AST (SGOT) 30 U/L (5-34); Albumin 4.4 g/dL (3.4-4.8); Alkaline Phosphatase 72 U/L (40-110); Anion Gap 15 mmol/L (10-20); BUN (Urea Nitrogen) 17 mg/dL (9.8-20.1); Bilirubin, Total 0.2 mg/dL (0.2-1.2); Calc. Creatinine Clearance 0 mL/min (70-130); Carbon Dioxide 19 mmol/L (23-31); Chloride 112 mmol/L (98-107); Estimated GFR 67; Glucose 132 mg/dL (83-110); Magnesium 1.8 mg/dL (1.6-2.6); Potassium 3.8 mmol/L (3.5-5.1); Protein, Total 8.4 g/dL (5.8-8.1); Sodium 142 mmol/L (136-145)
[2023-02-05] MEDS ORDERED: Flecainide 50 MG TAB PO SCH (11:15)
[2023-02-05] MEDS ORDERED: Acetaminophen 325 MG TAB ONE (11:21)
== END 2023-02-05 14:56 | disposition home or self-care (01) ==
LOC: ERS 07:58
DX: I48.0 Paroxysmal atrial fibrillation (principal); D72.819 Decreased white blood cell count, unspecified; I10 Essential (primary) hypertension
CPT/HCPCS: 36415; 71045; 80053; 83735; 83880; 84443; 84484; 85025; 93005; 94760; 96374

== ENCOUNTER 2023-02-06 09:12 | Inpatient (IN) | payer OTHER, MEDICAID ==
[2023-02-06 10:02] LABS: Hemoglobin 11.6 g/dL (12.0-16.0); Mean Corpuscular HGB CONC 31.7 g/dL (32.0-36.0); Mean Corpuscular Hemoglobin 25.2 pg (27.0-31.0); Mean Corpuscular Volume 79.5 fl (78.0-98.0); Mean Platelet Volume 8.9 fL (7.4-10.4); Platelet Count 213 10x3/uL (130-400); RBC Distribution Width 15.1 % (11.5-14.5); White Blood Cell (WBC) Count 4.2 10x3/uL (4.8-10.8)
[2023-02-06 10:19] LABS: ALT (SGPT) 17 U/L (8-55); AST (SGOT) 32 U/L (5-34); Albumin 4.4 g/dL (3.4-4.8); Alkaline Phosphatase 75 U/L (40-110); Anion Gap 18 mmol/L (10-20); BUN (Urea Nitrogen) 15 mg/dL (9.8-20.1); Bilirubin, Total 0.5 mg/dL (0.2-1.2); Calc. Creatinine Clearance 0 mL/min (70-130); Calcium 10.2 mg/dL (7.8-10.44); Carbon Dioxide 19 mmol/L (23-31); Chloride 109 mmol/L (98-107); Estimated GFR 56; Globulin 3.6 g/dL (2.4-3.5); Glucose 105 mg/dL (83-110); Lipase 43 U/L (8-78); Potassium 3.9 mmol/L (3.5-5.1); Sodium 142 mmol/L (136-145)
[2023-02-06 10:23] LABS: Eosinophils 2 % (0-10); Hypochromia SLIGHT = 6-15 cells (100X) (0-5/hpf); Lymphocytes 53 % (21-51); MDiff Complete? YES; Monocytes 8 % (0-10); Neutrophil 36 % (42-75); Platelet Morphology Comment Appears Adequate; Polychromasia SLIGHT = 2-3 cells (100X) (0-2/hpf)
[2023-02-06] MEDS ORDERED: Ondansetron PF 4 MG/2 ML Vial IVP PRN (12:43)
[2023-02-06] MEDS ORDERED: Acetaminophen 325 MG TAB PO PRN (12:43)
[2023-02-06] MEDS ORDERED: NIFEdipine XL 30 MG TAB ONE (15:05)
[2023-02-06] MEDS ORDERED: Acetaminophen 325 MG TAB ONE (15:16)
[2023-02-06 15:31] LABS: Troponin I 0.019 ng/mL (< 0.028)
[2023-02-06 16:49] VITALS: BMI 27.7
[2023-02-06] MEDS ORDERED: cloNIDine 0.1 MG TAB PO SCH (17:00)
[2023-02-06] MEDS ORDERED: NIFEdipine XL 30 MG TAB PO SCH (17:00)
[2023-02-06] MEDS: traMADol HCl 50 MG TAB PO PRN (17:42)
[2023-02-06] MEDS ORDERED: Albuterol 200 PUFF (6.7GM INHALER) INH PRN (17:42)
[2023-02-06] MEDS: Flecainide 50 MG TAB PO SCH (20:57)
[2023-02-06] MEDS: NIFEdipine XL 30 MG TAB PO SCH (20:57)
[2023-02-06] MEDS: Rosuvastatin 10 MG TAB PO SCH (20:58)
[2023-02-06] MEDS ORDERED: Flecainide 50 MG TAB PO SCH (21:00)
[2023-02-06] MEDS: Brimonidine Tartrate 0.2% Ophth Soln 5 ml Bottle R EYE SCH (21:04)
[2023-02-07] MEDS: traMADol HCl 50 MG TAB PO PRN ×3 (04:38→23:33)
[2023-02-07 05:19] LABS: Anion Gap 13 mmol/L (10-20); BUN (Urea Nitrogen) 22 mg/dL (9.8-20.1); Calc. Creatinine Clearance 68 mL/min (70-130); Calcium 9.5 mg/dL (7.8-10.44); Carbon Dioxide 21 mmol/L (23-31); Chloride 109 mmol/L (98-107); Estimated GFR 63; Glucose 90 mg/dL (83-110); Potassium 3.8 mmol/L (3.5-5.1); Sodium 139 mmol/L (136-145)
[2023-02-07 05:35] LABS: Eosinophils 2 % (0-10); Hemoglobin 10.4 g/dL (12.0-16.0); Hypochromia SLIGHT = 6-15 cells (100X) (0-5/hpf); Lymphocytes 59 % (21-51); MDiff Complete? YES; Mean Corpuscular HGB CONC 31.5 g/dL (32.0-36.0); Mean Corpuscular Hemoglobin 25.3 pg (27.0-31.0); Mean Corpuscular Volume 80.2 fl (78.0-98.0); Monocytes 3 % (0-10); Neutrophil 34 % (42-75); Platelet Count 175 10x3/uL (130-400); Platelet Morphology Comment Appears Adequate; RBC Distribution Width 15.2 % (11.5-14.5); Reactive Lymphocytes 2 % (0-10); White Blood Cell (WBC) Count 3.3 10x3/uL (4.8-10.8)
[2023-02-07] MEDS ORDERED: Benzonatate 100 MG CAP PO PRN (06:02)
[2023-02-07] MEDS: Levothyroxine Sodium 25 MCG TAB PO SCH (06:19)
[2023-02-07] MEDS: Rivaroxaban 10 MG TAB PO SCH (08:21)
[2023-02-07] MEDS: Ferrous Gluconate 324 MG TAB PO SCH (08:21)
[2023-02-07] MEDS: NIFEdipine XL 60 MG TAB PO SCH (08:21)
[2023-02-07] MEDS: Brimonidine Tartrate 0.2% Ophth Soln 5 ml Bottle R EYE SCH ×2 (08:22→21:26)
[2023-02-07] MEDS: Flecainide 50 MG TAB PO SCH ×2 (08:22→21:26)
[2023-02-07] MEDS ORDERED: NIFEdipine XL 60 MG TAB PO SCH (09:00)
[2023-02-07] MEDS: Leflunomide 10 mg Tablet PO SCH (10:25)
[2023-02-07] MEDS: NIFEdipine XL 30 MG TAB PO SCH (21:24)
[2023-02-07] MEDS: Rosuvastatin 10 MG TAB PO SCH (21:26)
[2023-02-07] MEDS: Famotidine 20 MG TAB PO SCH (21:26)
[2023-02-08 05:25] LABS: ALT (SGPT) 15 U/L (8-55); AST (SGOT) 24 U/L (5-34); Albumin 4.1 g/dL (3.4-4.8); Alkaline Phosphatase 68 U/L (40-110); Anion Gap 15 mmol/L (10-20); BUN (Urea Nitrogen) 21 mg/dL (9.8-20.1); Bilirubin, Total 0.3 mg/dL (0.2-1.2); Calc. Creatinine Clearance 64 mL/min (70-130); Calcium 9.5 mg/dL (7.8-10.44); Carbon Dioxide 21 mmol/L (23-31); Chloride 108 mmol/L (98-107); Estimated GFR 58; Globulin 3.7 g/dL (2.4-3.5); Glucose 96 mg/dL (83-110); Potassium 4.3 mmol/L (3.5-5.1); Protein, Total 7.8 g/dL (5.8-8.1); Sodium 140 mmol/L (136-145)
[2023-02-08] MEDS: Levothyroxine Sodium 25 MCG TAB PO SCH (06:11)
[2023-02-08 06:12] LABS: Hemoglobin 11.5 g/dL (12.0-16.0); Mean Corpuscular HGB CONC 32.3 g/dL (32.0-36.0); Mean Corpuscular Hemoglobin 25.7 pg (27.0-31.0); Mean Corpuscular Volume 79.7 fl (78.0-98.0); Mean Platelet Volume 9.5 fL (7.4-10.4); Platelet Count 176 10x3/uL (130-400); RBC Distribution Width 15.2 % (11.5-14.5); Red Blood Cell (RBC) Count 4.48 mill/uL (4.20-5.40); White Blood Cell (WBC) Count 4.3 10x3/uL (4.8-10.8)
[2023-02-08 06:14] LABS: Anisocytosis SLIGHT = 6-15 cells (100X) (0-5/hpf); Burr Cells SLIGHT = 2-5 cells (100X) (0-1/hpf); Eosinophils 6 % (0-10); Lymphocytes 57 % (21-51); MDiff Complete? YES; Monocytes 12 % (0-10); Neutrophil 24 % (42-75); Platelet Morphology Comment Appears Adequate; Target Cells MODERATE= 6-15 cells (100X) (0-1/hpf)
[2023-02-08] MEDS: Famotidine 20 MG TAB PO SCH (08:09)
[2023-02-08] MEDS: Flecainide 50 MG TAB PO SCH (08:10)
[2023-02-08] MEDS: Leflunomide 10 mg Tablet PO SCH (08:10)
[2023-02-08] MEDS: NIFEdipine XL 60 MG TAB PO SCH (08:11)
[2023-02-08] MEDS: Brimonidine Tartrate 0.2% Ophth Soln 5 ml Bottle R EYE SCH (08:11)
[2023-02-08] MEDS: Rivaroxaban 10 MG TAB PO SCH (08:11)
[2023-02-08 08:41] VITALS: BP 163/98; TEMP 98.1
[2023-02-08] MEDS: Ferrous Gluconate 324 MG TAB PO SCH (09:01)
[2023-02-08] MEDS ORDERED: predniSONE 20 MG TAB PO SCH (10:45)
[2023-02-08] MEDS ORDERED: Doxycycline 100 MG CAP PO SCH (21:00)
[2023-02-09] MEDS ORDERED: Ferrous Gluconate 324 MG TAB PO SCH (08:00)
[2023-02-09] MEDS ORDERED: predniSONE 20 MG TAB PO SCH (08:00)
== END 2023-02-08 12:12 | disposition home or self-care (01) | DRG 310 ==
LOC: ERS 09:12 → ERHOLD 13:03 → 2SW 15:57 → OBSVTOIN 02-08 10:06
PROVIDERS: ADMIT Internal Medicine; ATTEND Internal Medicine
DX: I48.0 Paroxysmal atrial fibrillation (principal); E11.9 Type 2 diabetes mellitus without complications; J44.9 Chronic obstructive pulmonary disease, unspecified; I10 Essential (primary) hypertension; E03.9 Hypothyroidism, unspecified; M10.9 Gout, unspecified; B18.2 Chronic viral hepatitis C; M06.9 Rheumatoid arthritis, unspecified; D72.819 Decreased white blood cell count, unspecified; K21.9 Gastro-esophageal reflux disease without esophagitis; Z88.1 Allergy status to other antibiotic agents; Z88.2 Allergy status to sulfonamides; Z88.0 Allergy status to penicillin; Z87.891 Personal history of nicotine dependence; Z79.890 Hormone replacement therapy
CPT/HCPCS: 36415; 71045; 80048; 80053; 83690; 83735; 83880; 84443; 84484; 84550; 85025; 93005; 93010; 94760; 96374; G0378

== ENCOUNTER 2023-05-23 13:40 | Inpatient (IN) | payer OTHER, MEDICAID ==
[2023-05-23] MEDS ORDERED: Morphine 4 MG/ML VIAL ONE ×2 (14:05→16:30)
[2023-05-23] MEDS ORDERED: Ondansetron PF 4 MG/2 ML Vial ONE (14:06)
[2023-05-23] MEDS ORDERED: Aspirin Chewable 81 MG TAB ONE (14:06)
[2023-05-23] MEDS ORDERED: Nitroglycerin 0.4 MG TAB 1 EACH ONE (14:38)
[2023-05-23 14:43] LABS: #Eosinphils 0.1 thou/uL (0.0-0.7); #Monocytes 0.4 thou/uL (0.11-0.59); #Neutrophils 1.9 thou/uL (1.40-6.50); %Basophils 0.9 % (0.0-1.0); %Eosinophils 2.1 % (0.0-10.0); %Lymphocytes 43.2 % (21.0-51.0); %Monocytes 9.9 % (0.0-10.0); %Neutrophils 43.9 % (42.0-75.0); Hemoglobin 11.7 g/dL (12.0-16.0); Mean Corpuscular HGB CONC 31.6 g/dL (32.0-36.0); Mean Corpuscular Hemoglobin 25.6 pg (27.0-31.0); Mean Platelet Volume 10.2 fL (7.4-10.4); Platelet Count 209 10x3/uL (130-400); RBC Distribution Width 14.8 % (11.5-14.5); Red Blood Cell (RBC) Count 4.57 mill/uL (4.20-5.40); White Blood Cell (WBC) Count 4.4 10x3/uL (4.8-10.8)
[2023-05-23 15:12] LABS: ALT (SGPT) 15 U/L (8-55); AST (SGOT) 28 U/L (5-34); Albumin 4.6 g/dL (3.4-4.8); Alkaline Phosphatase 75 U/L (40-110); Anion Gap 17 mmol/L (10-20); BUN (Urea Nitrogen) 17 mg/dL (9.8-20.1); Bilirubin, Total 0.2 mg/dL (0.2-1.2); Calc. Creatinine Clearance 0 mL/min (70-130); Calcium 10.4 mg/dL (7.8-10.44); Carbon Dioxide 21 mmol/L (23-31); Chloride 106 mmol/L (98-107); Estimated GFR 48; Globulin 3.8 g/dL (2.4-3.5); Glucose 84 mg/dL (83-110); Lipase 63 U/L (8-78); Magnesium 1.9 mg/dL (1.6-2.6); Potassium 3.8 mmol/L (3.5-5.1); Protein, Total 8.4 g/dL (5.8-8.1); Sodium 140 mmol/L (136-145)
[2023-05-23] MEDS ORDERED: Ondansetron PF 4 MG/2 ML Vial IVP PRN (15:47)
[2023-05-23] MEDS ORDERED: hydrALAZINE 20 MG/ML VIAL SLOW IVP PRN (15:47)
[2023-05-23] MEDS ORDERED: Acetaminophen 325 MG TAB PO PRN (15:47)
[2023-05-23] MEDS ORDERED: Dextrose 5% in Water 1,000 ML IV PRN (16:11)
[2023-05-23] MEDS ORDERED: Dextrose 50% Abboject 50 ML SYRINGE SLOW IVP PRN (16:11)
[2023-05-23] MEDS ORDERED: Glucagon 1 MG/ML KIT IM PRN (16:11)
[2023-05-23 18:05] LABS: Troponin I Less than 0.010 ng/mL (< 0.028)
[2023-05-23] MEDS ORDERED: Labetalol HCl 100 MG/20 ML VIAL ONE (18:22)
[2023-05-23] MEDS ORDERED: Amlodipine 5 MG TAB ONE (19:19)
[2023-05-23 20:38] LABS: Troponin I Less than 0.010 ng/mL (< 0.028)
[2023-05-23 20:44] VITALS: BMI 26.4
[2023-05-23] MEDS: NIFEdipine XL 30 MG TAB PO SCH (21:44)
[2023-05-23] MEDS: HYDROcodone/Acetaminophen 5/325 mg Tablet PO PRN (21:45)
[2023-05-23] MEDS: Rosuvastatin 10 MG TAB PO SCH (21:45)
[2023-05-23] MEDS: Nitroglycerin 0.4 MG TAB (25 Tab Bottle) SL PRN ×2 (21:47→22:02)
[2023-05-23 23:38] LABS: Troponin I Less than 0.010 ng/mL (< 0.028)
[2023-05-24] MEDS ORDERED: Lidocaine 2% Viscous Solution 10 ML, Aluminum & Magnesium Hydroxide 30 ML SSW SCH (00:30)
[2023-05-24 04:25] LABS: #Eosinphils 0.1 thou/uL (0.0-0.7); #Monocytes 0.6 thou/uL (0.11-0.59); #Neutrophils 3.2 thou/uL (1.40-6.50); %Basophils 0.5 % (0.0-1.0); %Eosinophils 1.5 % (0.0-10.0); %Lymphocytes 28.7 % (21.0-51.0); %Monocytes 11.6 % (0.0-10.0); %Neutrophils 57.5 % (42.0-75.0); Hemoglobin 10.9 g/dL (12.0-16.0); Mean Corpuscular HGB CONC 31.2 g/dL (32.0-36.0); Mean Corpuscular Hemoglobin 25.2 pg (27.0-31.0); Mean Corpuscular Volume 80.8 fl (78.0-98.0); Mean Platelet Volume 10.4 fL (7.4-10.4); Platelet Count 182 10x3/uL (130-400); RBC Distribution Width 14.6 % (11.5-14.5); Red Blood Cell (RBC) Count 4.32 mill/uL (4.20-5.40); White Blood Cell (WBC) Count 5.5 10x3/uL (4.8-10.8)
[2023-05-24 04:45] LABS: Anion Gap 14 mmol/L (10-20); BUN (Urea Nitrogen) 24 mg/dL (9.8-20.1); Calc. Creatinine Clearance 74 mL/min (70-130); Calcium 9.5 mg/dL (7.8-10.44); Carbon Dioxide 25 mmol/L (23-31); Cardiac Risk 1.9 (Less than 4.5); Chloride 105 mmol/L (98-107); Cholesterol 124 mg/dl (< 200 Desired); Estimated GFR 74; Glucose 96 mg/dL (83-110); HDL Cholesterol 65 mg/dL (>60 Neg Risk); LDL Cholesterol, Calculated 48 mg/dL; Potassium 3.5 mmol/L (3.5-5.1); Sodium 140 mmol/L (136-145); Triglycerides 56 mg/dL (Less than 150)
[2023-05-24] MEDS: HYDROcodone/Acetaminophen 5/325 mg Tablet PO PRN ×2 (05:52→14:48)
[2023-05-24] MEDS: Levothyroxine Sodium 25 MCG TAB PO SCH (05:53)
[2023-05-24] MEDS ORDERED: Regadenoson 0.4 MG/5 ML SYRINGE ONE (08:31)
[2023-05-24] MEDS: NIFEdipine XL 60 MG TAB PO SCH ×2 (09:46→13:39)
[2023-05-24] MEDS: Aspirin Chewable 81 MG TAB PO SCH ×3 (09:47→13:39)
[2023-05-24] MEDS ORDERED: Losartan 25 MG TAB PO SCH ×2 (10:04→10:15)
[2023-05-24] MEDS ORDERED: traMADol HCl 50 MG TAB PO PRN (15:08)
[2023-05-24] MEDS ORDERED: Nitroglycerin 0.2mg/Hour PATCH TD SCH (15:15)
[2023-05-24] MEDS ORDERED: Rivaroxaban 10 MG TAB PO SCH (17:00)
[2023-05-24] MEDS ORDERED: Transdermal Patch Removal TOP SCH (21:00)
[2023-05-24] MEDS: NIFEdipine XL 30 MG TAB PO SCH (21:36)
[2023-05-24] MEDS: Flecainide 50 MG TAB PO SCH (21:36)
[2023-05-24] MEDS: Rosuvastatin 10 MG TAB PO SCH (21:36)
[2023-05-25] MEDS: HYDROcodone/Acetaminophen 5/325 mg Tablet PO PRN (02:10)
[2023-05-25] MEDS ORDERED: Albuterol 200 PUFF (6.7GM INHALER) INH PRN (02:32)
[2023-05-25 05:33] LABS: Anion Gap 14 mmol/L (10-20); BUN (Urea Nitrogen) 20 mg/dL (9.8-20.1); Calc. Creatinine Clearance 74 mL/min (70-130); Calcium 9.6 mg/dL (7.8-10.44); Carbon Dioxide 20 mmol/L (23-31); Chloride 110 mmol/L (98-107); Estimated GFR 74; Glucose 104 mg/dL (83-110); Sodium 140 mmol/L (136-145)
[2023-05-25] MEDS: Levothyroxine Sodium 25 MCG TAB PO SCH (06:42)
[2023-05-25] MEDS ORDERED: Nitroglycerin 0.2mg/Hour PATCH TD SCH (09:00)
[2023-05-25] MEDS ORDERED: Losartan 25 MG TAB PO SCH ×2 (09:00→09:45)
[2023-05-25] MEDS: Aspirin Chewable 81 MG TAB PO SCH (09:47)
[2023-05-25] MEDS: NIFEdipine XL 60 MG TAB PO SCH (09:47)
[2023-05-25] MEDS: Flecainide 50 MG TAB PO SCH (09:48)
[2023-05-25 11:36] VITALS: BP 139/80; TEMP 98.6
[2023-05-25] MEDS ORDERED: Colchicine 0.6 MG TAB PO SCH (14:30)
[2023-05-26] MEDS ORDERED: Losartan 25 MG TAB PO SCH (09:00)
== END 2023-05-25 15:50 | disposition home or self-care (01) | DRG 303 ==
LOC: SUATTDRO 13:40 → ERS 13:40 → 2NO 15:53 → OBSVTOIN 15:53
PROVIDERS: ADMIT Internal Medicine; ATTEND Internal Medicine
DX: I25.119 Atherosclerotic heart disease of native coronary artery with unspecified angina pectoris (principal); R07.9 Chest pain, unspecified; M10.9 Gout, unspecified; I48.91 Unspecified atrial fibrillation; I10 Essential (primary) hypertension; E03.9 Hypothyroidism, unspecified; K21.9 Gastro-esophageal reflux disease without esophagitis; E11.9 Type 2 diabetes mellitus without complications; J44.9 Chronic obstructive pulmonary disease, unspecified; I25.10 Atherosclerotic heart disease of native coronary artery without angina pectoris; M19.90 Unspecified osteoarthritis, unspecified site; Z88.8 Allergy status to other drugs, medicaments and biological substances; Z88.1 Allergy status to other antibiotic agents; Z88.2 Allergy status to sulfonamides; Z79.01 Long term (current) use of anticoagulants; Z88.0 Allergy status to penicillin; Z79.890 Hormone replacement therapy; Z79.899 Other long term (current) drug therapy; Z79.84 Long term (current) use of oral hypoglycemic drugs; Z79.51 Long term (current) use of inhaled steroids; Z87.891 Personal history of nicotine dependence
CPT/HCPCS: 36415; 71045; 78452; 80048; 80053; 80061; 83690; 83735; 83880; 84484; 85025; 93005; 93010; 93017; 93306; 94760; 96374; 96375; 96376; A9500; J2270; J2405; J2785

== ENCOUNTER 2024-07-16 07:37 | Emergency (ER) | payer OTHER ==
[2024-07-16] MEDS ORDERED: Acetaminophen 325 MG TAB ONE (10:05)
== END 2024-07-16 10:43 | disposition home or self-care (01) ==
LOC: ERS 07:37
DX: S80.11XA Contusion of right lower leg, initial encounter (principal); K14.6 Glossodynia; I48.91 Unspecified atrial fibrillation; J44.9 Chronic obstructive pulmonary disease, unspecified; Z79.01 Long term (current) use of anticoagulants; W18.30XA Fall on same level, unspecified, initial encounter
CPT/HCPCS: 99283

== ENCOUNTER 2024-11-03 12:45 | Emergency (ER) | payer OTHER ==
[2024-11-03] MEDS ORDERED: HYDROcodone/Acetaminophen 5/325 mg Tablet ONE (14:09)
[2024-11-03 14:34] LABS: #Basophils Less than 0.03 10x3/uL (0.0-0.2); #Eosinophils Less than 0.03 10x3/uL (0.0-0.7); %Basophils 0.1 % (0.0-1.0); %Lymphocytes 14.1 % (21.0-51.0); %Monocytes 4.1 % (0.0-10.0); %Neutrophils 80.5 % (42.0-75.0); Hematocrit 33.5 % (36.0-47.0); Hemoglobin 10.6 g/dL (12.0-16.0); Mean Corpuscular HGB CONC 31.6 g/dL (32.0-36.0); Mean Corpuscular Hemoglobin 25.5 pg (27.0-31.0); Mean Corpuscular Volume 80.5 fL (78.0-98.0); Mean Platelet Volume 8.8 fL (7.4-10.4); Platelet Count 336 10x3/uL (130-400); RBC Distribution Width 14.7 % (11.5-14.5); Red Blood Cell (RBC) Count 4.16 mill/uL (4.20-5.40)
[2024-11-03 14:56] LABS: ALT (SGPT) 11 U/L (8-55); AST (SGOT) 16 U/L (5-34); Albumin 3.8 g/dL (3.4-4.8); Anion Gap 13 mmol/L (10-20); BUN (Urea Nitrogen) 19 mg/dL (9.8-20.1); Bilirubin, Total 0.1 mg/dL (0.2-1.2); Calc. Creatinine Clearance 0 mL/min (70-130); Calcium 9.8 mg/dL (7.8-10.44); Carbon Dioxide 24 mmol/L (23-31); Chloride 110 mmol/L (98-107); Estimated GFR 68; Glucose 107 mg/dL (83-110); Lipase 14 U/L (8-78); Potassium 4.3 mmol/L (3.5-5.1); Protein, Total 8.8 g/dL (5.8-8.1); Sodium 143 mmol/L (136-145); Troponin I Less than 0.010 ng/mL (< 0.028)
[2024-11-03 16:00] LABS: Alkaline Phosphatase 88 U/L (40-110)
== END 2024-11-03 15:35 | disposition home or self-care (01) ==
LOC: ERS 12:45
DX: R07.89 Other chest pain (principal); R05.9 Cough, unspecified; I10 Essential (primary) hypertension; J44.9 Chronic obstructive pulmonary disease, unspecified; E11.9 Type 2 diabetes mellitus without complications
CPT/HCPCS: 36415; 71046; 80053; 83690; 84484; 85025; 93005

== ENCOUNTER 2024-11-05 15:13 | Emergency (ER) | payer OTHER ==
[2024-11-05 16:37] LABS: #Basophils Less than 0.03 10x3/uL (0.0-0.2); #Eosinophils Less than 0.03 10x3/uL (0.0-0.7); %Basophils 0.2 % (0.0-1.0); %Monocytes 7.8 % (0.0-10.0); %Neutrophils 73.4 % (42.0-75.0); Hematocrit 33.8 % (36.0-47.0); Hemoglobin 10.9 g/dL (12.0-16.0); Mean Corpuscular HGB CONC 32.2 g/dL (32.0-36.0); Mean Corpuscular Hemoglobin 25.5 pg (27.0-31.0); Mean Corpuscular Volume 79.2 fL (78.0-98.0); Mean Platelet Volume 8.8 fL (7.4-10.4); Platelet Count 362 10x3/uL (130-400); RBC Distribution Width 14.8 % (11.5-14.5); Red Blood Cell (RBC) Count 4.27 mill/uL (4.20-5.40)
[2024-11-05 16:57] LABS: ALT (SGPT) 15 U/L (8-55); AST (SGOT) 18 U/L (5-34); Albumin 3.9 g/dL (3.4-4.8); Alkaline Phosphatase 87 U/L (40-110); Anion Gap 14 mmol/L (10-20); BUN (Urea Nitrogen) 15 mg/dL (9.8-20.1); Bilirubin, Total 0.1 mg/dL (0.2-1.2); Calc. Creatinine Clearance 0 mL/min (70-130); Calcium 9.4 mg/dL (7.8-10.44); Carbon Dioxide 24 mmol/L (23-31); Chloride 103 mmol/L (98-107); Estimated GFR 72; Globulin 4.8 g/dL (2.4-3.5); Glucose 123 mg/dL (83-110); Potassium 3.9 mmol/L (3.5-5.1); Protein, Total 8.7 g/dL (5.8-8.1); Sodium 137 mmol/L (136-145)
[2024-11-05 16:59] LABS: Troponin I Less than 0.010 ng/mL (< 0.028)
[2024-11-05] MEDS ORDERED: Benzonatate 100 MG CAP ONE (19:13)
[2024-11-05 19:43] LABS: Lactic Acid 1.04 mmol/L (0.5-2.2)
[2024-11-05] MEDS ORDERED: Ipratropium/Albuterol 3 ML NEB ONE (20:28)
[2024-11-05] MEDS ORDERED: methylPREDNISolone 4 mg Tablet PO SCH (20:30)
== END 2024-11-05 21:47 | disposition home or self-care (01) ==
LOC: ERS 15:13
DX: J44.1 Chronic obstructive pulmonary disease with (acute) exacerbation (principal); M94.0 Chondrocostal junction syndrome [Tietze]; I10 Essential (primary) hypertension; I48.91 Unspecified atrial fibrillation
CPT/HCPCS: 36415; 71045; 80053; 83605; 83880; 84484; 85025; 85379; 87428; 93005; J7509; J7620

== ENCOUNTER 2024-11-13 07:42 | Emergency (ER) | payer OTHER ==
[2024-11-13 09:16] LABS: Bacteria/HPF None Seen HPF (None Seen); Bilirubin Negative (Negative); Blood, Urine Negative (Negative); CAUTI Indications for Culture Fever or rigors; Clarity Clear (Clear); Glucose, Urine (Dipstick) Normal (Negative); Ketone, Urine Negative (Negative); Leukocyte Negative Leu/uL (Negative); Nitrite Negative (Negative); Protein, Urine (Dipstick) Negative (Neg-Trace); RBC/HPF 0-3 HPF (0-3); Specific Gravity, Urine 1.015 (1.002-1.036); Squamous Epithelial 0-3 HPF (0-3); Urobilinogen Normal mg/dL (Less than 2); WBC/HPF 0-3 HPF (0-3); pH, Urine 6.5 (5.0-9.0)
[2024-11-13] MEDS ORDERED: Aspirin Chewable 81 MG TAB ONE (09:16)
[2024-11-13 09:21] LABS: Urine Culture Reflex No No
[2024-11-13 09:28] LABS: #Basophils Less than 0.03 10x3/uL (0.0-0.2); #Eosinophils Less than 0.03 10x3/uL (0.0-0.7); %Basophils 0.1 % (0.0-1.0); %Lymphocytes 24.9 % (21.0-51.0); %Monocytes 7.3 % (0.0-10.0); Hematocrit 35.3 % (36.0-47.0); Hemoglobin 11.3 g/dL (12.0-16.0); Mean Corpuscular Hemoglobin 24.9 pg (27.0-31.0); Mean Corpuscular Volume 77.8 fL (78.0-98.0); Mean Platelet Volume 8.4 fL (7.4-10.4); Platelet Count 371 10x3/uL (130-400); RBC Distribution Width 15.7 % (11.5-14.5); Red Blood Cell (RBC) Count 4.54 mill/uL (4.20-5.40)
[2024-11-13 09:46] LABS: ALT (SGPT) 19 U/L (Less than 34); AST (SGOT) 22 U/L (11-34); Albumin 3.9 g/dL (3.1-4.5); Alkaline Phosphatase 72 U/L (40-110); Anion Gap 15 mmol/L (10-20); BUN (Urea Nitrogen) 25 mg/dL (9.8-20.1); Bilirubin, Total 0.2 mg/dL (0.3-1.2); Calc. Creatinine Clearance 0 mL/min (70-130); Calcium 9.9 mg/dL (7.8-10.44); Carbon Dioxide 26 mmol/L (23-31); Chloride 103 mmol/L (98-107); Estimated GFR 62; Globulin 4.1 g/dL (2.4-3.5); Glucose 107 mg/dL (83-110); Magnesium 2.2 mg/dL (1.6-2.6); Potassium 4.3 mmol/L (3.5-5.1); Sodium 140 mmol/L (136-145)
[2024-11-13 09:50] LABS: Troponin I Less than 0.010 ng/mL (< 0.028)
[2024-11-13] MEDS ORDERED: Acetaminophen 500 MG TAB ONE (10:58)
[2024-11-13] MEDS ORDERED: Meclizine HCl 25 MG TAB ONE (10:58)
== END 2024-11-13 11:11 | disposition home or self-care (01) ==
LOC: ERS 07:42
DX: R05.9 Cough, unspecified (principal); I48.91 Unspecified atrial fibrillation; J44.9 Chronic obstructive pulmonary disease, unspecified; E11.9 Type 2 diabetes mellitus without complications
CPT/HCPCS: 71045; 80053; 81001; 83735; 83880; 84443; 84484; 85025; 93005